=== PATIENT | female | born 1965 | race Caucasian/White ===

== ENCOUNTER → 2018-09-13 10:13 | Outpatient (CLI) | payer MEDICAID, SELFPAY ==
--- NOTE | 2018-09-13 10:15 | US_ITS ---
US extremity RT limited CLINICAL INDICATION: Right upper extremity pain with swelling at the olecranon area ITS.REASON: STRAIN OF RT BICEPS ORDERING PHYSICIAN: Meryl Bragg PATIENT AGE: 53 years Comparison: None FINDINGS: There are no previous exams available for review. Over the olecranon there is a bilobular area of increased echogenicity rounded in nature measuring 12 x 5 mm possibly related to an encapsulated lipoma. No fluid collections are evident. No other significant anomalies are apparent. IMPRESSION: Probable lipoma over the olecranon region otherwise negative.
== END ==
PROVIDERS: PCP Physician Assistant; Visit Provider Physician Assistant
DX: S46.211A Strain of muscle, fascia and tendon of other parts of biceps, right arm, initial encounter (principal)
CPT/HCPCS: 76882

== ENCOUNTER → 2018-12-01 16:15 | Outpatient (CLI) | payer MEDICAID, SELFPAY ==
--- NOTE | 2018-12-01 | XR_ITS ---
XR humerus RT CLINICAL INDICATION: Pain and tingling ORDERING PHYSICIAN: Meryl Bragg PATIENT AGE: 53 years Comparison: None FINDINGS: There is subacromial stenosis. The humerus has an unremarkable appearance. No fracture or dislocation. IMPRESSION: Negative humerus. Subacromial stenosis
--- NOTE | 2018-12-01 | XR_ITS ---
XR shoulder RT min 2V HISTORY: Right arm pain ORDERING PHYSICIAN: Meryl Bragg PATIENT AGE: 53 years Comparison: None FINDINGS: No fracture or dislocation. No lytic or blastic change. There is normal mineralization. The joint spaces are well-preserved. No significant degenerative/arthritic changes. No erosive changes evident. There is a type III acromium curved downward along its anterior margin which may result in impingement symptomatology and rotator cuff injuries and may be better evaluated with MRI if clinically desired. There is subacromial stenosis IMPRESSION: 1. Subacromial stenosis with type III acromion, 2. Otherwise negative right shoulder
--- NOTE | 2018-12-01 | XR_ITS ---
XR forearm RT 2V HISTORY: Forearm pain with tingling ORDERING PHYSICIAN: Meryl Bragg PATIENT AGE: 53 years COMPARISON: None FINDINGS: No obvious fracture, dislocation, lytic change or blastic change. Normal mineralization. Unremarkable soft tissues IMPRESSION: Negative forearm
== END ==
PROVIDERS: PCP Physician Assistant; Visit Provider Physician Assistant
DX: M79.601 Pain in right arm (principal)
CPT/HCPCS: 73030; 73060; 73090

== ENCOUNTER → 2019-01-02 12:40 | Outpatient (CLI) | payer MEDICAID, SELFPAY ==
--- NOTE | 2019-01-02 12:52 | XR_ITS ---
EXAM: XR cervical spine 2V HISTORY: ITS.REASON: neck pain ORDERING PHYSICIAN: Nona Hurtado MD PATIENT AGE: 53 years COMPARISON: None FINDINGS: There is straightening of the normal curvature which could be a normal variation or could be secondary to some degree of muscle spasm. There is prominent anterior osteophytic spurring at the C5-6 and C6-7 levels. C1-C7 appear intact with no evidence of compression fracture. The prevertebral soft tissues are normal and the odontoid is normal. IMPRESSION: Possible muscle spasm along with mild to moderate degenerative disc disease C5-6 and C6-7
== END ==
PROVIDERS: PCP Physician Assistant; Visit Provider Orthopaedic Surgery
DX: M54.2 Cervicalgia (principal)
CPT/HCPCS: 72040

== ENCOUNTER → 2020-05-24 13:37 | Outpatient (CLI) | payer MEDICAID, SELFPAY ==
[2020-05-24 14:40] LABS: Chol/HDL Ratio 4.9 (1-3.5); Cholesterol 249 mg/dl (140-200); HDL Cholesterol 51 mg/dl (40-60)
[2020-05-24 14:43] LABS: Triglycerides 424 mg/dl (30-150)
[2020-05-24 14:51] LABS: Direct LDL Cholesterol 112.38 mg/dL (100-129)
== END ==
PROVIDERS: Visit Provider Internal Medicine
DX: I10 Essential (primary) hypertension (principal); E78.5 Hyperlipidemia, unspecified
CPT/HCPCS: 36415; 80061

== ENCOUNTER 2020-05-26 17:26 | Emergency (ER) | payer MEDICAID, SELFPAY ==
[2020-05-26 17:26] VITALS: BP 148/93; PULSE 78; RESP 19; TEMP 36.7; O2SAT 98; BMI 40.4
--- NOTE | 2020-05-26 18:07 | HMH.EDUTC ---
[facility] [place] Disposition Clinical Impression: Urticaria Disposition: Home, Self-Care Condition on Discharge: Good Instructions: Hives, DI for Hives, DI for General Allergic Reactions Additional Instructions: Look around and see what you may be having a reaction too *Make sure to wash face and neck area well after coming in from the outside Return if needed Follow up with family doctor for possible referral to Asthma and Allergy for allergy testing and further treatment Straight to ER if any life threatening symptoms Prescriptions: methylPREDNISolone [Medrol 4mg tab] 4 mg PO DIRECTED #21 tab Transmission Status: Pending to [email or web address] #[id number] Referrals: Alma Rosa Baugh PA [Primary Care Provider] - As needed Time of Disposition: 18:37 Medical Decision Making - Kvng Inquiry Pt receiving controlled substance: No Kvng was queried for this patient: No Vital Signs: 05/26/20 17:26 Temperature 98.0 F Temperature Source Oral Pulse Rate [Radial] 78 Respiratory Rate 19 Blood Pressure [Right Arm] 148/93 H Blood Pressure Mean [Right Arm] 111 Blood Pressure Source [Right Arm] Automatic Cuff Blood Pressure Position [Right Arm] Sitting 02 Sat by Pulse Oximetry 98 Oxygen Delivery Method Room Air Orders (Tests/Meds): ED MEDICATIONS Discontinued Medications Generic Name Dose Route Start Last Admin Trade Name Freq PRN Reason Stop Dose Admin Methylprednisolone Sodium Succinate 125 mg 05/26/20 18:13 Solu-Medrol 125mg/2ml Vial IM 05/26/20 18:14 ONCE ONE Medical Decision Narrative: Patient reports that she has taken steroid dose pack before without complications or reactions [facility] HPI - General Stated complaint: Rash Time Seen by Provider: 05/26/20 18:07 Mode of Arrival: Ambulatory Source of Information: Patient Limitations: No Limitations Description of Symptoms (Recalled from Triage Doc. by RN): rash, swollen eyes since this morning. HEENT Symptoms (Recalled from RN notes): No Resp Symptoms (Recalled from RN notes): No Skin Symptoms (Recalled from RN notes): Yes MS Symptoms (Recalled from RN notes): No Functional Status (Recalled from RN notes): wnl - History of Present Illness Provider Complaint: Patient states that she has had a rash like this several times and gets it when she has been outside States that she is not sure what she may be having a reaction too but has rash on her face and neck redness and mild swelling States that she usually has to come in and get a shot for it - Related Data Home Medications Medication Instructions Recorded Confirmed blood sugar diagnostic See Rx Instructions .ROUTE 11/29/19 11/29/19 .MEDSUPPLY #10 each cyanocobalamin (vitamin B-12) IM 11/29/19 11/29/19 1,000 mcg/mL injection solution ergocalciferol (vitamin D2) 1,250 PO QWEEK cap 11/29/19 11/29/19 mcg (50,000 unit) capsule fenofibrate nanocrystallized 145 mg PO 11/29/19 11/29/19 mg tablet fluticasone propionate 50 INTRANASAL 11/29/19 11/29/19 mcg/actuation nasal spray,suspension lancets 33 gauge See Rx Instructions .ROUTE 11/29/19 11/29/19 .MEDSUPPLY #100 each loratadine 10 mg tablet mg PO DAILY tab 11/29/19 11/29/19 meclizine 25 mg tablet mg PO 11/29/19 11/29/19 simvastatin 40 mg tablet mg PO 11/29/19 11/29/19 Previous Rx's Medication Instructions Recorded Benzonatate [Tessalon Perle 100mg 100 mg PO TIDP PRN #30 cap 11/22/19 Cap] furosemide 20 mg tablet 20 mg PO DAILY 30 Days #30 tab 11/29/19 lisinopril 10 mg tablet 10 mg PO DAILY 30 Days #30 tab 11/29/19 metoprolol succinate 100 mg 100 mg PO DAILY 30 Days #30 tab 11/29/19 tablet,extended release 24 hr levothyroxine 125 mcg tablet 125 mcg PO DAILY #30 tab 12/04/19 triazolam 0.25 mg tablet 0.25 mg PO ONCE PRN #1 tab 12/05/19 Ondansetron [Zofran 4mg ODT] 4 mg PO Q8HP PRN #10 tab.rapdis 01/09/20 Phenazopyridine HCl [Pyridium 200 pow PO TID #6 tab 01/09/20 200mg Tablet] Sulfamethoxazole/Trim
[2020-05-26 18:43] VITALS: BP 148/93; PULSE 78; RESP 19; TEMP 36.7; O2SAT 98
== END 2020-05-26 18:45 | disposition home or self-care (01) ==
PROVIDERS: Emergency Provider Nurse Practitioner; PCP Nurse Practitioner Family
DX: L50.0 Allergic urticaria (principal); E78.5 Hyperlipidemia, unspecified; I10 Essential (primary) hypertension; I25.2 Old myocardial infarction; Z79.899 Other long term (current) drug therapy
CPT/HCPCS: 96372; 99201

== ENCOUNTER → 2020-07-12 14:41 | Outpatient (CLI) | payer MEDICAID, SELFPAY ==
--- NOTE | 2020-07-12 14:41 | MM_ITS ---
PROCEDURE: MM DIG SCREENING MAMM BI W/CAD Referring Doctor: Sumanth Sanders Patient Age:55Y CLINICAL INDICATION: screening xmg no hormones but no new complaints. Noncontributory family history. COMPARISON: MG DIG MAMMO BILAT SCREENING from 11/19/2014 MG MAMMO SCREENING DIGITAL BILAT from 02/07/2016 MG DMSB DIG MAMM-SCREEN NESTOR W/CAD from 12/11/2016 TECHNIQUE: Standard CC and MLO images were obtained. R2 CAD reviewed. Bilateral digital breast tomosynthesis included. FINDINGS: Minimal residual fibroglandular elements bilaterally with mild diffuse fatty replacement. No suspicious calcifications. Right breast. No new areas of significant concern Asymmetric area of density upper-outer quadrant right breast of has been seen on previous studies and appears overall similar to the 2016 and 2015 exam with no significant interval change. Given this stability, this area can be followed safely Left breast: No new areas of concern Similar small focal asymmetric area likely fibroglandular elements at upper-outer quadrant left breast-which appear stable since listed previous prior studies. IMPRESSION: Stable bilateral mammogram. No new areas. Stable small areas of focal density upper quadrant both breast again noted, with no significant change since prior studies. . Follow-up 1 year recommended BI-RAD Category: 2 Benign Finding(s) FOLLOW-UP: 1YR 1 Year Follow-up (A letter has been sent to the patient regarding results of the study.) Dictated by: Mata Manuel MD 07/18/2020 12:33 Mata Manuel MD in [place] 07/18/2020 12:33
== END ==
PROVIDERS: PCP Nurse Practitioner Family; Visit Provider Nurse Practitioner Obstetrics & Gynecology
DX: Z12.31 Encounter for screening mammogram for malignant neoplasm of breast (principal)
CPT/HCPCS: 77063; 77067

== ENCOUNTER → 2021-02-27 14:22 | Outpatient (CLI) | payer MEDICAID, SELFPAY ==
[2021-02-27 15:21] LABS: Basophils # 0.1 K/mm3 (0-0.2); Basophils % 0.7 % (0.1-2.0); Eosinophils # 0.3 K/mm3 (0.0-0.4); Eosinophils % 4.5 % (0.1-12.0); Hematocrit 43.6 % (37.0-47.0); Hemoglobin 14.7 g/dL (12.2-16.2); Lymphocytes # 2.3 K/mm3 (0.7-4.5); Lymphocytes % 33.9 % (10-50); Mean Corpuscular HGB Conc 33.6 g/dL (31.8-35.4); Mean Corpuscular Hemoglobin 29.3 pg (27.0-31.2); Mean Platelet Volume 7.8 fl (7.4-10.4); Monocytes # 0.4 K/mm3 (0.1-1.0); Monocytes % 5.4 % (1.7-9.3); Neutrophils # 3.7 K/mm3 (1.8-7.8); Neutrophils % 55.5 % (37.0-80.0); Platelet Count 209 K/mm3 (142-424); Red Blood Count 5.01 M/mm3 (4.20-5.40); Red Cell Distribution Width 14.9 % (11.5-17.5); White Blood Count 6.7 K/mm3 (4.8-10.8)
[2021-02-27 15:40] LABS: Hemoglobin A1C 7.9 % (4.0-6.0)
[2021-02-27 16:02] LABS: Alanine Aminotransferase 29 U/L (12-78); Albumin Level 4.5 g/dl (3.5-5.0); Albumin/Globulin Ratio 1.7 (1.1-1.8); Alkaline Phosphatase 88 U/L (38-126); Anion Gap 10.4 mEq/L (5-15); Aspartate Amino Transferase 25 U/L (14-36); Bilirubin,Total 1.6 mg/dl (0.2-1.3); Blood Urea Nitrogen 8 mg/dl (7-17); Calcium 9.8 mg/dl (8.4-10.2); Carbon Dioxide 30 mmol/L (22.0-30.0); Chloride 103 mmol/L (98-107); Chol/HDL Ratio 4.3 (1-3.5); Cholesterol 230 mg/dl (140-200); Estimated Glomerular Filt Rate 127 ml/min (>60); GFR (African American) 154 ML/MIN (>60); Globulin 2.7 g/dL (1.3-3.2); Glucose 166 mg/dl (74-100); HDL Cholesterol 53 mg/dl (40-60); Potassium 4.4 mmoL/L (3.5-5.1); Sodium 139 mmol/L (136-145); Total Protein,Serum 7.2 g/dl (6.3-8.2); Triglycerides 272 mg/dl (30-150); VLDL Cholesterol 54 mg/dL (0-40)
[2021-02-27 16:14] LABS: Direct LDL Cholesterol 120.14 mg/dL (100-129)
[2021-02-27 16:19] LABS: 25-OH Vitamin D, Total 21.1 ng/mL (30-100)
[2021-02-27 16:34] LABS: Thyroid Stimulating Hormone 1.86 uIU/mL (0.465-4.68)
[2021-02-27 16:53] LABS: Vitamin B12 190 pg/mL (239-931)
[2021-02-27 18:45] LABS: Free T4 (Free Thyroxine) 1.37 ng/dl (0.78-2.19)
== END ==
PROVIDERS: Visit Provider Physician Assistant
DX: Z00.00 Encounter for general adult medical examination without abnormal findings (principal); R53.83 Other fatigue; E78.5 Hyperlipidemia, unspecified; E03.9 Hypothyroidism, unspecified; E55.9 Vitamin D deficiency, unspecified; I10 Essential (primary) hypertension
CPT/HCPCS: 36415; 80053; 80061; 82306; 82607; 83036; 84439; 84443; 85025

== ENCOUNTER → 2021-03-20 17:22 | Outpatient (CLI) | payer MEDICAID, SELFPAY ==
--- NOTE | 2021-03-21 13:01 | PC.NURSE ---
[facility] RECEIVED HOME SLEEP DEVICE - RETURNED AND NOT ENOUGH DATA TO UPLOAD - NO CHARGE TO PATIENT.... PATIENT NOTIFIED
== END ==
PROVIDERS: PCP Physician Assistant; Visit Provider Physician Assistant
DX: G47.33 Obstructive sleep apnea (adult) (pediatric) (principal); R53.83 Other fatigue; E11.9 Type 2 diabetes mellitus without complications

== ENCOUNTER 2021-06-24 15:21 | Emergency (ER) | payer MEDICAID, SELFPAY ==
[2021-06-24 15:40] VITALS: BP 143/84; PULSE 84; RESP 20; TEMP 36.7; O2SAT 97; BMI 40.0
--- NOTE | 2021-06-24 16:14 | HMH.EDUTC ---
[facility] [place] Clinical Impression: Sinusitis Qualifiers: Sinusitis location: unspecified location Chronicity: acute Recurrence: non-recurrent Qualified Code(s): J01.90 - Acute sinusitis, unspecified Disposition: Home, Self-Care Condition on Discharge: Good Instructions: Sinusitis, DI for Sinusitis Additional Instructions: Drink plenty of fluids. Take tylenol or ibuprofen for pain or fever. Take the medications as directed. Follow up with your regular doctor. GO TO THE ER FOR ANY WORSENING SYMPTOMS Prescriptions: Ondansetron [Zofran 4mg ODT] 4 mg PO Q8HP PRN #20 tab.rapdis PRN Reason: Nausea Transmission Status: Received by [facility] Amoxicillin/Potassium Clav [Augmentin 875-125 Tablet] 1 tab PO Q12H 10 Days #20 tab Transmission Status: Received by [facility] Fluticasone Propionate 1 spray NS BID 30 Days #1 bottle Transmission Status: Received by [facility] methylPREDNISolone [Medrol] 4 mg PO DIRECTED 6 Days #21 tab.ds.pk Transmission Status: Received by [facility] Referrals: Dora Moran PA [Primary Care Provider] - Time of Disposition: 16:30 Medical Decision Making - Medical Records Medical records reviewed: No: I reviewed the patient's medical records. - Kvng Inquiry Pt receiving controlled substance: No Vital Signs: 06/24/21 15:40 06/24/21 16:33 Temperature 98.1 F 98.1 F Temperature Source Oral Pulse Rate 84 Pulse Rate [Left Brachial] 84 Respiratory Rate 20 20 Blood Pressure 143/84 H Blood Pressure [Left Arm] 143/84 H Blood Pressure Mean [Left Arm] 103 Blood Pressure Source [Left Arm] Automatic Cuff Blood Pressure Position [Left Arm] Sitting 02 Sat by Pulse Oximetry 97 Oxygen Delivery Method Room Air - Lab Data Lab results reviewed: Yes: I reviewed the patient's lab results. [facility] [place] HPI - General Stated complaint: sinus pain Time Seen by Provider: 06/24/21 16:14 Mode of Arrival: Ambulatory Source of Information: Patient Limitations: No Limitations Description of Symptoms (Recalled from Triage Doc. by RN): PATIENT C/O SINUS PRESSURE. STATES SHE USUALLY GETS A SINUS INFECTION ONCE A YEAR AND FEELS LIKE SHE HAS ONE HEENT Symptoms (Recalled from RN notes): Yes Resp Symptoms (Recalled from RN notes): No Skin Symptoms (Recalled from RN notes): No MS Symptoms (Recalled from RN notes): No Functional Status (Recalled from RN notes): WNL - History of Present Illness Provider Complaint: She c/o sinus congestion and sinus pressure for the past 2 days. She usually gets a bad sinus infection ever late summer as the weather changes. She denies any fever/chills, chest congestion. - Related Data Home Medications Medication Instructions Recorded Confirmed loratadine 10 mg tablet mg PO DAILY tab 11/29/19 04/28/21 Previous Rx's Medication Instructions Recorded metoprolol succinate 100 mg See Rx Instructions .ROUTE 02/27/21 tablet,extended release 24 hr .COMPLEX #90 tab aspirin 81 mg tablet,delayed 81 mg PO DAILY #30 tab 03/06/21 release blood sugar diagnostic See Rx Instructions .ROUTE 03/06/21 .MEDSUPPLY #100 each blood-glucose meter See Rx Instructions .ROUTE 03/06/21 .MEDSUPPLY #1 each cholecalciferol (vitamin D3) 25 25 mcg PO DAILY #30 cap 03/06/21 mcg (1,000 unit) capsule ergocalciferol (vitamin D2) 1,250 1,250 mcg PO WEEKLY #5 cap 03/06/21 mcg (50,000 unit) capsule lancets 23 gauge See Rx Instructions .ROUTE 03/06/21 .MEDSUPPLY #100 each lisinopril 5 mg tablet 5 mg PO DAILY #30 tab 03/06/21 metformin 500 mg tablet,extended 500 mg PO BID #60 tab 03/06/21 release 24 hr atorvastatin 20 mg tablet 20 mg PO DAILY #30 tab 03/10/21 meclizine 25 mg tablet 25 mg PO DAILY PRN #30 tab 03/10/21 levothyroxine 125 mcg tablet See Rx Instructions .ROUTE 04/10/21 .COMPLEX #30 tab bupropion HCl 150 mg tablet,12 hr 150 mg PO BID #60 each 04/28/21 sustained-release
[2021-06-24 16:33] VITALS: BP 143/84; PULSE 84; RESP 20; TEMP 36.7; O2SAT 97
== END 2021-06-24 16:36 | disposition home or self-care (01) ==
PROVIDERS: Emergency Provider Nurse Practitioner Family; PCP Physician Assistant
DX: J01.90 Acute sinusitis, unspecified (principal); E11.9 Type 2 diabetes mellitus without complications; I10 Essential (primary) hypertension; E03.9 Hypothyroidism, unspecified; E78.5 Hyperlipidemia, unspecified; Z79.899 Other long term (current) drug therapy
CPT/HCPCS: 99202; G0463

== ENCOUNTER → 2022-04-07 15:40 | Outpatient (CLI) | payer MEDICAID, SELFPAY ==
[2022-04-07 18:47] LABS: Basophils # 0.1 K/mm3 (0-0.2); Eosinophils # 0.4 K/mm3 (0.0-0.4); Eosinophils % 5.4 % (0.1-12.0); Hematocrit 45.1 % (37.0-47.0); Hemoglobin 14.8 g/dL (12.2-16.2); Lymphocytes % 30.2 % (10-50); Mean Corpuscular HGB Conc 32.7 g/dL (31.8-35.4); Mean Corpuscular Hemoglobin 29.6 pg (27.0-31.2); Mean Corpuscular Volume 90.5 fl (81-99); Mean Platelet Volume 9.7 fl (7.4-10.4); Monocytes # 0.3 K/mm3 (0.1-1.0); Monocytes % 5.1 % (1.7-9.3); Neutrophils # 3.8 K/mm3 (1.8-7.8); Neutrophils % 57.3 % (37.0-80.0); Platelet Count 221 K/mm3 (142-424); Red Blood Count 4.98 M/mm3 (4.20-5.40); Red Cell Distribution Width 14.7 % (11.5-17.5); White Blood Count 6.6 K/mm3 (4.8-10.8)
[2022-04-07 18:53] LABS: Alanine Aminotransferase 31 U/L (12-78); Albumin Level 3.9 g/dl (3.5-5.0); Albumin/Globulin Ratio 1.4 (1.1-1.8); Alkaline Phosphatase 106 U/L (38-126); Anion Gap 13.1 mEq/L (5-15); Aspartate Amino Transferase 29 U/L (14-36); Bilirubin,Total 2.2 mg/dl (0.2-1.3); Blood Urea Nitrogen 9 mg/dl (7-17); Calcium 9.4 mg/dl (8.4-10.2); Carbon Dioxide 29 mmol/L (22.0-30.0); Chloride 96 mmol/L (98-107); Chol/HDL Ratio 4.8 (1-3.5); Cholesterol 251 mg/dl (140-200); Estimated Glomerular Filt Rate 103 ml/min (>60); GFR (African American) 124 ML/MIN (>60); Globulin 2.8 g/dL (1.3-3.2); Glucose 374 mg/dl (74-100); HDL Cholesterol 52 mg/dl (40-60); Potassium 4.1 mmoL/L (3.5-5.1); Sodium 134 mmol/L (136-145); Total Protein,Serum 6.7 g/dl (6.3-8.2); Triglycerides 346 mg/dl (30-150); VLDL Cholesterol 69 mg/dL (0-40)
[2022-04-07 19:04] LABS: Direct LDL Cholesterol 137.08 mg/dL (100-129); Hemoglobin A1C 10.4 % (4.0-6.0)
[2022-04-07 19:10] LABS: 25-OH Vitamin D, Total 16.2 ng/mL (30-100)
[2022-04-07 19:24] LABS: Thyroid Stimulating Hormone 1.87 uIU/mL (0.465-4.68)
== END ==
PROVIDERS: PCP Physician Assistant; Visit Provider Physician Assistant
DX: E11.9 Type 2 diabetes mellitus without complications (principal); E03.9 Hypothyroidism, unspecified; Z79.84 Long term (current) use of oral hypoglycemic drugs
CPT/HCPCS: 80053; 80061; 82306; 83036; 84443; 85025

== ENCOUNTER → 2022-06-05 16:11 | Outpatient (CLI) | payer MEDICAID, SELFPAY ==
[2022-06-05 17:10] LABS: Basophils % 0.6 % (0.1-2.0); Eosinophils # 0.2 K/mm3 (0.0-0.4); Eosinophils % 3.4 % (0.1-12.0); Hematocrit 41.9 % (37.0-47.0); Hemoglobin 13.6 g/dL (12.2-16.2); Lymphocytes % 34.8 % (10-50); Mean Corpuscular HGB Conc 32.4 g/dL (31.8-35.4); Mean Corpuscular Hemoglobin 28.7 pg (27.0-31.2); Mean Corpuscular Volume 88.4 fl (81-99); Monocytes # 0.4 K/mm3 (0.1-1.0); Monocytes % 6.4 % (1.7-9.3); Neutrophils # 3.2 K/mm3 (1.8-7.8); Neutrophils % 54.8 % (37.0-80.0); Platelet Count 211 K/mm3 (142-424); Red Blood Count 4.74 M/mm3 (4.20-5.40); Red Cell Distribution Width 14.2 % (11.5-17.5); White Blood Count 5.8 K/mm3 (4.8-10.8)
[2022-06-05 17:22] LABS: Alanine Aminotransferase 22 U/L (12-78); Albumin Level 3.8 g/dl (3.5-5.0); Albumin/Globulin Ratio 1.5 (1.1-1.8); Alkaline Phosphatase 79 U/L (38-126); Amylase 40 U/L (30-110); Anion Gap 8.4 mEq/L (5-15); Aspartate Amino Transferase 19 U/L (14-36); Bilirubin,Total 1.7 mg/dl (0.2-1.3); Blood Urea Nitrogen 11 mg/dl (7-17); Calcium 9.2 mg/dl (8.4-10.2); Carbon Dioxide 32 mmol/L (22.0-30.0); Chloride 101 mmol/L (98-107); Estimated Glomerular Filt Rate 86 ml/min (>60); GFR (African American) 104 ML/MIN (>60); Globulin 2.5 g/dL (1.3-3.2); Glucose 172 mg/dl (74-100); Lipase 44 U/L (23-300); Potassium 4.4 mmoL/L (3.5-5.1); Sodium 137 mmol/L (136-145); Total Protein,Serum 6.3 g/dl (6.3-8.2)
== END ==
PROVIDERS: PCP Physician Assistant; Visit Provider Physician Assistant
DX: R10.9 Unspecified abdominal pain (principal)
CPT/HCPCS: 36415; 80053; 82150; 83690; 85025; 86677

== ENCOUNTER 2022-07-18 16:52 | Emergency (ER) | payer MEDICAID, SELFPAY ==
[2022-07-18 17:35] VITALS: BP 137/81; PULSE 64; RESP 19; TEMP 36.8; O2SAT 98; BMI 34.0
--- NOTE | 2022-07-18 17:55 | EXP.UTC ---
Discharge Plan Disposition Patient Disposition: Home, Self-Care Condition: Good Prescriptions Prescriptions: New amoxicillin 875 mg tablet 875 mg PO BID 10 Days Qty: 20 0RF No Action loratadine 10 mg tablet PO DAILY furosemide 20 mg tablet 20 mg PO DAILY 30 Days Qty: 30 2RF meclizine 25 mg tablet 25 mg PO DAILY PRN (Reason: dizziness) Qty: 30 0RF fluticasone propionate 50 mcg/actuation spray,suspension 1 spray NS BID 30 Days Qty: 1 0RF lisinopril 5 mg tablet 5 mg PO DAILY Qty: 90 3RF ketoconazole 2 % foam 1 applic TP BID PRN (Reason: Skin issue ) Qty: 50 1RF buspirone 5 mg tablet 5 mg PO BID Qty: 60 2RF sertraline [Zoloft] 50 mg tablet 50 mg PO DAILY Qty: 30 2RF omeprazole 40 mg capsule,delayed release(DR/EC) 40 mg PO BID Qty: 60 1RF Rx Instructions: swallow whole; do not crush, chew, dissolve, cut, break aspirin 81 mg tablet,delayed release (DR/EC) 81 mg PO DAILY Qty: 30 3RF (DME) blood-glucose meter Misc See Rx Instructions .ROUTE .MEDSUPPLY Qty: 1 0RF Rx Instructions: As directed (DME) lancets 23 gauge misc See Rx Instructions .ROUTE .MEDSUPPLY Qty: 100 3RF Rx Instructions: TID (DME) Blood Glucose Test Strip See Rx Instructions .ROUTE .MEDSUPPLY Qty: 100 3RF Rx Instructions: As directed acyclovir 5 % ointment 1 applic TOPICAL 5XD 7 Days Qty: 5 0RF metformin 500 mg tablet extended release 24 hr See Rx Instructions .ROUTE .COMPLEX Qty: 60 0RF Dose Instruction: TAKE ONE TABLET BY MOUTH ONCE A DAY FOR 7 DAYS, THEN INCREASE TO 1 TABLET 2 TIMES A DAY Rx Instructions: TAKE ONE TABLET BY MOUTH ONCE A DAY FOR 7 DAYS, THEN INCREASE TO 1 TABLET 2 TIMES A DAY patient needs appt before anymore refills valacyclovir [Valtrex] 1 gram tablet 1,000 mg PO BID Qty: 30 0RF levothyroxine 125 mcg tablet See Rx Instructions .ROUTE .COMPLEX Qty: 30 2RF Dose Instruction: TAKE ONE TABLET BY MOUTH ONCE A DAY FOR THYROID Rx Instructions: TAKE ONE TABLET BY MOUTH ONCE A DAY FOR THYROID atorvastatin 40 mg tablet 40 mg PO DAILY Qty: 90 3RF cholecalciferol (vitamin D3) 25 mcg (1,000 unit) tablet 25 mcg PO DAILY Qty: 90 3RF ergocalciferol (vitamin D2) 1,250 mcg (50,000 unit) capsule 50,000 unit PO WEEKLY Qty: 14 0RF glipizide 10 mg tablet extended release 24hr 10 mg PO DAILY Qty: 90 3RF Januvia 100 mg tablet 100 mg PO DAILY Qty: 90 3RF terconazole 0.8 % cream 1 appful VAGINAL HS 3 Days Qty: 20 6RF metoprolol succinate 100 mg tablet extended release 24 hr See Rx Instructions .ROUTE .COMPLEX Qty: 30 2RF Dose Instruction: TAKE ONE TABLET BY MOUTH ONCE A DAY Rx Instructions: TAKE ONE TABLET BY MOUTH ONCE A DAY ondansetron 4 MG tablet,disintegrating 4 mg PO Q8HP PRN (Reason: Nausea) Qty: 20 0RF Referrals Follow up/Referrals: Dora Moran PA [Primary Care Provider] - See instructions Activity Restrictions/Add. Instructions Additional Instructions/Restrictions: Take medication as prescribed. Increase fluids and rest. Follow up with PCP if symptoms persist or worsen. Clinical Impressions Clinical Impression: Acute upper respiratory infection Discharge ED Provider: Haylee Garcia [facility] General Stated complaint: poss sinus inf Time Seen by Provider: 07/18/22 17:30 Description of Symptoms (Recalled from Triage Doc. by RN): PT C/O SINUS PRESSURE, PRODUCTIVE COUGH, CHEST CONGESTION, AND HEADACHE THAT STARTED 3 DAYS AGO. HEENT Symptoms (Recalled from RN notes): No Resp Symptoms (Recalled from RN notes): Yes Skin Symptoms (Recalled from RN notes): No MS Symptoms (Recalled from RN notes): No Functional Status (Recalled from RN notes): WNL History of Present Illness Provider Complaint: Pt relates for the last 3 days she has had a productive cough, sinus pressure and pain, yellow sinus drainage, and heada
[2022-07-18 18:05] VITALS: BP 137/81; PULSE 64; RESP 19; TEMP 36.8; O2SAT 98
== END 2022-07-18 18:10 | disposition home or self-care (01) ==
PROVIDERS: Emergency Provider Nurse Practitioner Family; PCP Physician Assistant
DX: J06.9 Acute upper respiratory infection, unspecified (principal)
CPT/HCPCS: 99212; G0463

== ENCOUNTER → 2023-03-09 14:02 | Outpatient (CLI) | payer MEDICAID, SELFPAY ==
--- NOTE | 2023-03-09 14:10 | XR_ITS ---
FINAL REPORT CLINICAL HISTORY: LT KNEE PAIN FINDINGS: 3 views of the left knee were obtained. There is no acute fracture or dislocation. There are moderate degenerative changes. There is medial joint space narrowing. There are multiple presumed venous varicosities. IMPRESSION: Moderate degenerative change. Reviewed, Interpreted and Dictated by Yonathan Jurado III, MD Transcribed by Je Holt Authenticated and [facility]
== END ==
PROVIDERS: PCP Nurse Practitioner Family; Visit Provider Nurse Practitioner Family
DX: M25.562 Pain in left knee (principal)
CPT/HCPCS: 73562

== ENCOUNTER → 2023-04-01 23:17 | Outpatient (CLI) | payer MEDICAID, SELFPAY ==
[2023-04-01 18:23] LABS: Basophils % 0.4 % (0.1-2.0); Eosinophils # 0.2 K/mm3 (0.0-0.4); Eosinophils % 2.4 % (0.1-12.0); Hematocrit 46.6 % (37.0-47.0); Hemoglobin 15.1 g/dL (12.2-16.2); Lymphocytes # 1.9 K/mm3 (0.7-4.5); Lymphocytes % 28.4 % (10-50); Mean Corpuscular HGB Conc 32.4 g/dL (31.8-35.4); Mean Corpuscular Hemoglobin 29.4 pg (27.0-31.2); Mean Corpuscular Volume 90.8 fl (81-99); Monocytes # 0.4 K/mm3 (0.1-1.0); Neutrophils # 4.3 K/mm3 (1.8-7.8); Neutrophils % 62.8 % (37.0-80.0); Platelet Count 219 K/mm3 (142-424); Red Blood Count 5.13 M/mm3 (4.20-5.40); Red Cell Distribution Width 15.1 % (11.5-17.5); White Blood Count 6.9 K/mm3 (4.8-10.8)
[2023-04-01 18:50] LABS: Alanine Aminotransferase 34 U/L (12-78); Albumin Level 3.9 g/dl (3.5-5.0); Albumin/Globulin Ratio 1.4 (1.1-1.8); Alkaline Phosphatase 100 U/L (38-126); Anion Gap 17.2 mEq/L (5-15); Aspartate Amino Transferase 27 U/L (14-36); Blood Urea Nitrogen 11 mg/dl (7-17); Calcium 9.1 mg/dl (8.4-10.2); Carbon Dioxide 27 mmol/L (22.0-30.0); Chloride 97 mmol/L (98-107); Estimated Glomerular Filt Rate 126 ml/min (>60); GFR (African American) 153 ML/MIN (>60); Globulin 2.8 g/dL (1.3-3.2); Glucose 146 mg/dl (74-100); Potassium 4.2 mmoL/L (3.5-5.1); Sodium 137 mmol/L (136-145); Total Protein,Serum 6.7 g/dl (6.3-8.2)
[2023-04-01 19:22] LABS: Thyroid Stimulating Hormone 0.75 uIU/mL (0.465-4.68)
[2023-04-02 12:23] LABS: Hemoglobin A1C 7.8 % (4.0-6.0)
[2023-04-03 12:10] LABS: Cancer Antigen (CA) 125 25.8 U/mL (0.0-38.1)
== END ==
PROVIDERS: PCP Physician Assistant; Visit Provider Physician Assistant
DX: N95.0 Postmenopausal bleeding (principal); E11.9 Type 2 diabetes mellitus without complications; Z79.84 Long term (current) use of oral hypoglycemic drugs
CPT/HCPCS: 80053; 83036; 84443; 85025; 86316

== ENCOUNTER → 2023-04-07 14:49 | Outpatient (CLI) | payer MEDICAID, SELFPAY ==
--- NOTE | 2023-04-07 14:53 | US_ITS ---
FINAL REPORT CLINICAL HISTORY: postmenopausal bleeding COMPARISON: None FINDINGS: Transvaginal sonographic images of the pelvis were obtained. The uterus measures 8.4 x 4.4 x 4.1 cm. The endometrium is mildly thickened at 10 mm as an abnormal but nonspecific finding. No uterine mass is identified. There is no visualization of the bilateral ovaries. No adnexal mass or abnormal fluid collection identified. IMPRESSION: Nonspecific endometrial thickening. No adnexal mass or abnormal fluid collection identified. Reviewed, Interpreted and Dictated by Yonathan Jurado III, MD Transcribed by Winter Fuller Authenticated and . [facility]
== END ==
PROVIDERS: PCP Physician Assistant; Visit Provider Physician Assistant
DX: N95.0 Postmenopausal bleeding (principal)
CPT/HCPCS: 76830

== ENCOUNTER → 2023-04-08 19:27 | Outpatient (CLI) | payer MEDICAID, SELFPAY ==
[2023-04-08 19:51] LABS: Chloride 97 mmol/L (98-107); Potassium 4.3 mmoL/L (3.5-5.1); Sodium 138 mmol/L (136-145)
[2023-04-08 19:54] LABS: Alanine Aminotransferase 31 U/L (12-78); Albumin Level 3.9 g/dl (3.5-5.0); Albumin/Globulin Ratio 1.4 (1.1-1.8); Alkaline Phosphatase 93 U/L (38-126); Anion Gap 14.3 mEq/L (5-15); Aspartate Amino Transferase 25 U/L (14-36); Bilirubin,Indirect 1.7 mg/dL (0.0-0.9); Bilirubin,Total 1.7 mg/dl (0.2-1.3); Bilirubin,Unconjugated 1.7 mg/dL (0.0-1.1); Blood Urea Nitrogen 13 mg/dl (7-17); Calcium 9.4 mg/dl (8.4-10.2); Carbon Dioxide 31 mmol/L (22.0-30.0); Estimated Glomerular Filt Rate 102 ml/min (>60); GFR (African American) 124 ML/MIN (>60); Globulin 2.8 g/dL (1.3-3.2); Glucose 103 mg/dl (74-100); Total Protein,Serum 6.7 g/dl (6.3-8.2)
[2023-05-20 08:07] LABS: Lactate Dehydrogenase 195 U/L (313-618)
[2023-05-20 08:08] LABS: Haptoglobin 113
[2023-05-20 08:09] LABS: Peripheral Smear Review Scanned Results
== END ==
LOC: LAB.DROPOF 19:29
PROVIDERS: PCP Physician Assistant; Visit Provider Physician Assistant
DX: R17 Unspecified jaundice (principal)
CPT/HCPCS: 80053; 82247; 82248; 83010; 83615; 85060

== ENCOUNTER → 2023-04-09 14:29 | Outpatient (CLI) | payer MEDICAID, SELFPAY ==
[2023-04-09 14:17] LABS: Lactate Dehydrogenase 195 U/L (313-618)
[2023-04-11 08:11] LABS: Haptoglobin 113 mg/dL (33-346)
[2023-04-11 13:56] LABS: Peripheral Smear Review Scanned Result
== END ==
PROVIDERS: PCP Physician Assistant; Visit Provider Physician Assistant
DX: N95.0 Postmenopausal bleeding (principal)
CPT/HCPCS: 83010; 83615

== ENCOUNTER 2023-05-24 17:14 | Emergency (ER) | payer MEDICAID, SELFPAY ==
[2023-05-24 17:15] VITALS: BP 157/91; PULSE 66; RESP 18; TEMP 36.8; O2SAT 97; BMI 39.2
--- NOTE | 2023-05-24 17:22 | EXP.UTC ---
Discharge Plan Disposition Patient Disposition: Home, Self-Care Condition: Good Prescriptions Prescriptions: New methylprednisolone 4 mg Tablets,Dose Pack 4 mg PO DIRECTED Qty: 21 0RF No Action loratadine 10 mg tablet PO DAILY meclizine 25 mg tablet 25 mg PO DAILY PRN (Reason: dizziness) Qty: 30 0RF fluticasone propionate 50 mcg/actuation spray,suspension 1 spray NS BID 30 Days Qty: 1 0RF triamcinolone acetonide 0.1 % ointment 1 applic topical BID Qty: 80 2RF esomeprazole magnesium 40 mg capsule,delayed release(DR/EC) 40 mg PO aspirin 81 mg tablet,delayed release (DR/EC) 81 mg PO DAILY Qty: 30 3RF cholecalciferol (vitamin D3) 25 mcg (1,000 unit) tablet 25 mcg PO DAILY Qty: 90 3RF ergocalciferol (vitamin D2) 1,250 mcg (50,000 unit) capsule See Rx Instructions .ROUTE .COMPLEX Qty: 4 0RF Dose Instruction: TAKE ONE CAPSULE BY MOUTH EVERY WEEK Rx Instructions: TAKE ONE CAPSULE BY MOUTH EVERY WEEK metoprolol succinate 100 mg tablet extended release 24 hr See Rx Instructions .ROUTE .COMPLEX Qty: 30 2RF Dose Instruction: TAKE ONE TABLET BY MOUTH ONCE A DAY Rx Instructions: TAKE ONE TABLET BY MOUTH ONCE A DAY glipizide 10 mg tablet extended release 24hr See Rx Instructions .ROUTE .COMPLEX Qty: 30 2RF Dose Instruction: TAKE ONE TABLET BY MOUTH ONCE A DAY Rx Instructions: TAKE ONE TABLET BY MOUTH ONCE A DAY atorvastatin 40 mg tablet See Rx Instructions .ROUTE .COMPLEX Qty: 30 2RF Dose Instruction: TAKE ONE TABLET BY MOUTH ONCE A DAY Rx Instructions: TAKE ONE TABLET BY MOUTH ONCE A DAY lisinopril 5 mg tablet See Rx Instructions .ROUTE .COMPLEX Qty: 30 2RF Dose Instruction: TAKE ONE TABLET BY MOUTH ONCE A DAY Rx Instructions: TAKE ONE TABLET BY MOUTH ONCE A DAY levothyroxine 125 mcg tablet See Rx Instructions .ROUTE .COMPLEX Qty: 30 2RF Dose Instruction: TAKE ONE TABLET BY MOUTH ONCE A DAY FOR THYROID Rx Instructions: TAKE ONE TABLET BY MOUTH ONCE A DAY FOR THYROID furosemide 20 mg tablet See Rx Instructions .ROUTE .COMPLEX Qty: 30 2RF Dose Instruction: TAKE ONE TABLET BY MOUTH ONCE A DAY Rx Instructions: TAKE ONE TABLET BY MOUTH ONCE A DAY Ozempic 0.25 mg or 0.5 mg (2 mg/3 mL) pen injector 0.25 mg SQ WEEKLY Qty: 3 2RF Rx Instructions: for 4 weeks Referrals Follow up/Referrals: Dora Moran PA [Primary Care Provider] - See instructions Activity Restrictions/Add. Instructions Additional Instructions/Restrictions: Try to identify and avoid contact with the offending substance. Don't start the oral steroids until tomorrow. The diphenhydramine (benedryl) will make you drowsy, so don't drive or operate heavy machinery after taking it. Follow up with your regular doctor. GO TO THE ER FOR ANY WORSENING SYMPTOMS OR CONCERNS Clinical Impressions Clinical Impression: Allergic reaction Instructions Patient Instructions: DI for General Allergic Reactions, Methylprednisolone Injection Discharge ED Provider: Ganga Murillo [facility] General Stated complaint: rash Time Seen by Provider: 05/24/23 17:22 History of Present Illness Provider Complaint: She states that for the past 1 days she has had generalized itching and a rash. She denies any exposure to any known allergens. Related Data Home Medications Medication Instructions Recorded Confirmed loratadine 10 mg tablet mg PO DAILY 11/29/19 05/25/23 esomeprazole magnesium 40 mg 40 mg PO 04/01/23 05/25/23 capsule,delayed release Previous Rx's Medication Instructions Recorded aspirin 81 mg tablet,delayed 81 mg PO DAILY #30 tabs 03/06/21 release meclizine 25 mg tablet 25 mg PO DAILY PRN dizziness #30 03/10/21 tabs fluticasone propionate 50 1 spray intranasal BID 30 days ##1 04/07/22 mcg/actuation nasal spray,suspension cholecalciferol
[2023-05-24 18:28] VITALS: BP 157/91; PULSE 66; RESP 18; TEMP 36.8; O2SAT 97
== END 2023-05-24 18:28 | disposition home or self-care (01) ==
PROVIDERS: Emergency Provider Nurse Practitioner Family; PCP Physician Assistant
DX: T78.40XA Allergy, unspecified, initial encounter; I10 Essential (primary) hypertension; E78.5 Hyperlipidemia, unspecified; E03.9 Hypothyroidism, unspecified; E11.9 Type 2 diabetes mellitus without complications; E53.8 Deficiency of other specified B group vitamins; J30.9 Allergic rhinitis, unspecified; F32.A Depression, unspecified; Z68.41 Body mass index [BMI] 40.0-44.9, adult; Z79.84 Long term (current) use of oral hypoglycemic drugs
CPT/HCPCS: 96372; 99212; 99214; G0463

== ENCOUNTER → 2023-05-25 10:11 | Outpatient (CLI) | payer MEDICAID, SELFPAY ==
--- NOTE | 2023-05-25 10:32 | ECG_ITS ---
APPROVED REPORT Exam: Resting ECG HR:75 bpm ECG Measurements Heart Rate 75 AXES [place] 148 P 33 QRSd 101 QRS 52 QT 388 T 64 QTc 417 Conclusion SINUS RHYTHM Isolated Q in III - noted in 2016 Normal ECG UNCONFIRMED REPORT Electronically signed by : Salazar Robert MD 05/27/2023 21:41:47
[2023-05-25 10:49] LABS: Basophils % 0.2 % (0.1-2.0); Eosinophils % 0.4 % (0.1-12.0); Hematocrit 43.8 % (37.0-47.0); Hemoglobin 14.2 g/dL (12.2-16.2); Lymphocytes # 0.9 K/mm3 (0.7-4.5); Lymphocytes % 11.5 % (10-50); Mean Corpuscular HGB Conc 32.3 g/dL (31.8-35.4); Mean Corpuscular Hemoglobin 29.1 pg (27.0-31.2); Mean Corpuscular Volume 90.1 fl (81-99); Mean Platelet Volume 8.7 fl (7.4-10.4); Monocytes # 0.3 K/mm3 (0.1-1.0); Monocytes % 3.9 % (1.7-9.3); Neutrophils # 6.6 K/mm3 (1.8-7.8); Platelet Count 220 K/mm3 (142-424); Red Blood Count 4.86 M/mm3 (4.20-5.40); Red Cell Distribution Width 15.3 % (11.5-17.5); White Blood Count 7.9 K/mm3 (4.8-10.8)
[2023-05-25 11:30] LABS: Alanine Aminotransferase 41 U/L (12-78); Albumin/Globulin Ratio 1.4 (1.1-1.8); Alkaline Phosphatase 104 U/L (38-126); Anion Gap 13.2 mEq/L (5-15); Aspartate Amino Transferase 30 U/L (14-36); Bilirubin,Total 1.8 mg/dl (0.2-1.3); Blood Urea Nitrogen 11 mg/dl (7-17); Calcium 9.5 mg/dl (8.4-10.2); Carbon Dioxide 26 mmol/L (22.0-30.0); Chloride 104 mmol/L (98-107); Estimated Glomerular Filt Rate 102 ml/min (>60); GFR (African American) 124 ML/MIN (>60); Globulin 2.8 g/dL (1.3-3.2); Glucose 298 mg/dl (74-100); Potassium 4.2 mmoL/L (3.5-5.1); Sodium 139 mmol/L (136-145); Total Protein,Serum 6.8 g/dl (6.3-8.2)
[2023-05-25 11:48] LABS: HCG,Quantitative 6 mIU/ml (0-5.42)
== END ==
PROVIDERS: PCP Physician Assistant; Visit Provider Nurse Practitioner Obstetrics & Gynecology
DX: Z01.818 Encounter for other preprocedural examination (principal); N95.0 Postmenopausal bleeding
CPT/HCPCS: 36415; 80053; 84702; 85025; 93005

== ENCOUNTER 2023-06-01 07:38 | Day surgery (SDC) | payer MEDICAID, SELFPAY ==
[2023-05-28 12:36] VITALS: BMI 39.6
[2023-06-01] VITALS (9 sets, daily range): BP systolic 121–136; BP diastolic 70–86; PULSE 80–89; RESP 12–18; TEMP 36.2–36.4; O2SAT 94–99
[2023-06-01 08:06] LABS: POC Glucose,Bedside 95 (70-110)
--- NOTE | 2023-06-01 08:21 | P.PNANES_ITS ---
[facility] Disclaimer: The information contained in this section may have been updated after the patient was seen, as this information can be updated by other users. Medical History Allergic rhinitis Asthma B12 deficiency BMI 40.0-44.9, adult Depression HTN (hypertension) Hyperlipidemia Hypothyroidism Surgical History H/O hernia repair History of delivery History of cholecystectomy S/P cholecystectomy Family History Other Asthma Diabetes Heart attack Hyperlipidemia Hypertension Thyroid disorder Social History Smoking Status: Never smoker second hand exposure: No alcohol intake: never substance use type: denies use current occupational status: other Travel in the last 8 weeks: None household members: spouse and children housing: house [facility] Anesthesia Checklist Patient Identification Patient Identification: Arm Band and Verbal (Name & ) Structural Data Admitted From: Home Planned Operative Procedure/s: Hyst/D & C/Polypectomy Consent for Planned Operative Procedure(s) Verified: Yes NPO Status Verified Time NPO: 00:00 Additional verifications Anesthesia Reactions: No Hx Blood Transfusions: No Blood Transfusion Reaction: No Airway Assessment C-Spine Mobility Assessed: Yes TMJ Mobility Assessed: Yes Dentition: Edentulous Neurological Assessment Level of Consciousness: Awake Hx Seizures: No Numbness or tingling in extremities: No Anesthesia Plan Anesthesia Risk discussed: Yes Anesthesia Plan: Verified ASA Class: III Anesthesia Type: General
[2023-06-01 08:25] LABS: Urine Pregnancy, HCG Qual. Negative (Negative)
--- NOTE | 2023-06-01 09:58 | P.PNANES_ITS ---
[facility] Anesthesia Record Part I Anesthesia Record I Intake, IV Amount: 800 Estimated blood loss (mL): 25 Urine output (mL): 0 Blood Pressure: 129/83 SaO2: 94 Pulse Rate: 89 Respiratory Rate: 12 Temperature: 97.5 F Patient is:: Awake and Stable Stable to PACU at:: 10:00
[2023-06-01 10:06] LABS: POC Glucose,Bedside 105 (70-110)
--- NOTE | 2023-06-01 10:55 | EXP.OP.NOTE ---
Date of procedure: 06/01/23 Pre-op Diagnosis:: Postmenopausal bleeding, polyp Post-op Diagnosis:: Postmenopausal bleeding, polyp Procedure performed:: Hysteroscopy, dilation and curettage, MyoSure curettage. Surgeon:: Sumanth Sanders MD WATER METER INSTALLER:: Makr Naranjo Anesthesia: LMA Estimated blood loss (mL): 25 Clinical Note:: She is a 58-year-old lady who had some postmenopausal bleeding. An ultrasound showed that her endometrium was slightly thickened. Endometrial biopsy the showed a polyp. Operative findings:: She had an anteverted uterus. There were a couple small polyps in the left cornua of the uterus. There were multiple polyps within the cervical canal. The endometrium appeared thin. Operative note:: She was taken the operating room where LMA anesthesia was found be adequate. She was prepped draped normal sterile fashion lithotomy position. The weighted speculum was placed in vagina and the anterior lip of the cervix was grasped with a tenaculum. Clinton dilators were used to dilate the cervix to approximately 5 mm. A MyoSure scope was then placed within the uterine cavity. The findings were as previously dictated. Using the MyoSure device I shaved off the polyps within the endometrial cavity as well as the polyps in the endocervical canal. I then injected 10 cc of 0.25% ropivacaine at the 5:00 and 7:00 positions of the cervix. She tolerated procedure well and was taken to recovery next condition. All sponge, instrument counts were correct. The estimated blood loss was less than 25 cc. The fluid deficit was 490 cc. Condition: stable Disposition: PACU Specimens:: Curettings Complications:: None
--- NOTE | 2023-06-07 07:51 | EXP.ANES.II ---
[facility] Anesthesia Record Part II Anesthesia Record Part II Discharge Time: 10:30 Destination: Surgical Day Care (OP Surgery) PACU nurse assessment reviewed?: Yes Patient Condition:: Good Anesthesia Complications:: None Swallowing reflex intact?: Yes Cyanosis?: No Blood Pressure: 122/78 Pulse Rate: 81 Temperature: 97.2 F Mental Status: Alert & Oriented Pain level:: 0 Nausea and/or vomitting:: None Intake, IV Amount: 0
[2023-06-07 07:52] VITALS: BP 122/78; PULSE 81; TEMP 36.2
== END 2023-06-01 11:01 | disposition home or self-care (01) ==
PROVIDERS: PCP Physician Assistant; Visit Provider Nurse Practitioner Obstetrics & Gynecology
PROC: 0UB98ZZ Excision of Uterus, Via Natural or Artificial Opening Endoscopic (ICD-10-PCS; CPT 58558; principal; 2023-06-01 09:15)
DX: N84.0 Polyp of corpus uteri (principal); N95.0 Postmenopausal bleeding; E11.9 Type 2 diabetes mellitus without complications
CPT/HCPCS: 58558; 81025; 82962; 96374; J2405

== ENCOUNTER 2023-07-14 17:33 | Emergency (ER) | payer MEDICAID, SELFPAY ==
[2023-07-14 17:33] VITALS: BP 161/93; PULSE 82; RESP 18; TEMP 36.7; O2SAT 95; BMI 40.6
--- NOTE | 2023-07-14 17:56 | EXP.UTC ---
Discharge Plan Disposition Patient Disposition: Home, Self-Care Condition: Good Prescriptions Prescriptions: New azithromycin [Zithromax Z-Zhen] 250 mg tablet See Rx Instructions .ROUTE .COMPLEX 5 Days Qty: 6 0RF Rx Instructions: For 250 mg dose pack: take 500 mg today (day 1), then 250 mg for 4 days (days 2-5) No Action loratadine 10 mg tablet 10 mg PO DAILY fluconazole [Diflucan] 150 mg tablet 150 mg PO Q3D Qty: 2 6RF Rx Instructions: may repeat dose after 72 hours terconazole 0.8 % cream 1 appful vaginal HS 7 Days Qty: 20 6RF meclizine 25 mg tablet 25 mg PO DAILY PRN (Reason: dizziness) Qty: 30 0RF esomeprazole magnesium [Nexium] 40 mg capsule,delayed release(DR/EC) 40 mg PO DAILY atorvastatin 40 mg tablet See Rx Instructions .ROUTE .COMPLEX Rx Instructions: TAKE ONE TABLET BY MOUTH ONCE A DAY glipizide 10 mg tablet extended release 24hr See Rx Instructions .ROUTE .COMPLEX Rx Instructions: TAKE ONE TABLET BY MOUTH ONCE A DAY metoprolol succinate 100 mg tablet extended release 24 hr See Rx Instructions .ROUTE .COMPLEX Rx Instructions: TAKE ONE TABLET BY MOUTH ONCE A DAY aspirin 81 mg tablet,delayed release (DR/EC) 81 mg PO DAILY levothyroxine 125 mcg tablet See Rx Instructions .ROUTE .COMPLEX Rx Instructions: TAKE ONE TABLET BY MOUTH ONCE A DAY FOR THYROID lisinopril 5 mg tablet See Rx Instructions .ROUTE .COMPLEX Rx Instructions: TAKE ONE TABLET BY MOUTH ONCE A DAY furosemide 20 mg tablet See Rx Instructions .ROUTE .COMPLEX Rx Instructions: TAKE ONE TABLET BY MOUTH ONCE A DAY ergocalciferol (vitamin D2) 1,250 mcg (50,000 unit) capsule See Rx Instructions .ROUTE .COMPLEX Rx Instructions: TAKE ONE CAPSULE BY MOUTH EVERY WEEK fluticasone propionate [24 Hour Allergy Relief] 50 mcg/actuation spray,suspension 1 spray NS BID cholecalciferol (vitamin D3) 25 mcg (1,000 unit) tablet 25 mcg PO DAILY Ozempic 0.25 mg or 0.5 mg (2 mg/3 mL) pen injector 0.25 mg SQ WEEKLY Rx Instructions: for 4 weeks Referrals Follow up/Referrals: Dora Moran PA [Primary Care Provider] - See instructions Activity Restrictions/Add. Instructions Additional Instructions/Restrictions: *Monitor Temp, Over the counter Motrin or Tylenol as directed/as needed Tylenol every 4 hours and Motrin every 6 hours (as long as your family doctor has told you that you can take it) for fever or pain. and straight to ER if unable to lower temp less than 101.0 after medication given *Warm salt water gargles may help to soothe the throat *Throat Lozenges? *Warm fluids like tea with honey may help to soothe the throat? *Sleep elevated *Humidifier/Vaporizer Take medication as prescribed Follow up IMMEDIATELY for new or worsening symptoms or no Noticeable improvement over the next 48-72 hours. 911 for difficulty breathing or swallowing Clinical Impressions Clinical Impression: Sinusitis Qualifiers: Sinusitis location: unspecified location Chronicity: unspecified Qualified Code(s): J32.9 - Chronic sinusitis, unspecified Instructions Patient Instructions: Sinusitis, DI for Sinusitis Discharge ED Provider: Jacklyn Cosme [facility] [place] General Stated complaint: congestion, h/a, fever, sinus pressure Mode of Arrival: Ambulatory Source of Information: Patient Limitations: No Limitations Time Seen by Provider: 07/14/23 17:56 Description of Symptoms (Recalled from Triage Doc. by RN): Patient reports sinus pressure, headache, fever and congestion for 2 days. HEENT Symptoms (Recalled from RN notes): Yes Resp Symptoms (Recalled from RN notes): No Skin Symptoms (Recalled from RN notes): No MS Symptoms (Recalled from RN notes): No Functional Status (Recalled from RN notes): wnl History of Present Illness Provider Complaint: Patient states th
[2023-07-14 18:36] VITALS: BP 161/93; PULSE 82; RESP 18; TEMP 36.7; O2SAT 95
== END 2023-07-14 18:36 | disposition home or self-care (01) ==
PROVIDERS: Emergency Provider Nurse Practitioner; PCP Physician Assistant
DX: J01.90 Acute sinusitis, unspecified (principal); R50.9 Fever, unspecified; E03.9 Hypothyroidism, unspecified; E78.5 Hyperlipidemia, unspecified; I10 Essential (primary) hypertension; J45.909 Unspecified asthma, uncomplicated; F32.A Depression, unspecified; E53.8 Deficiency of other specified B group vitamins
CPT/HCPCS: 96372; 99212; 99214; G0463

== ENCOUNTER 2023-07-19 14:08 | Emergency (ER) | payer MEDICAID, SELFPAY ==
[2023-07-19 14:20] VITALS: BP 171/89; PULSE 82; RESP 20; TEMP 36.5; O2SAT 93; BMI 40.6
--- NOTE | 2023-07-19 14:28 | EXP.UTC ---
Discharge Plan Disposition Patient Disposition: Home, Self-Care Condition: Good Prescriptions Prescriptions: New phenazopyridine [Pyridium] 200 mg tablet 200 mg PO Q8H 2 Days Qty: 6 0RF ciprofloxacin HCl [Cipro] 500 mg tablet 500 mg PO BID 7 Days Qty: 14 0RF No Action loratadine 10 mg tablet 10 mg PO DAILY fluconazole [Diflucan] 150 mg tablet 150 mg PO Q3D Qty: 2 6RF Rx Instructions: may repeat dose after 72 hours terconazole 0.8 % cream 1 appful vaginal HS 7 Days Qty: 20 6RF meclizine 25 mg tablet 25 mg PO DAILY PRN (Reason: dizziness) Qty: 30 0RF esomeprazole magnesium [Nexium] 40 mg capsule,delayed release(DR/EC) 40 mg PO DAILY atorvastatin 40 mg tablet See Rx Instructions .ROUTE .COMPLEX Rx Instructions: TAKE ONE TABLET BY MOUTH ONCE A DAY glipizide 10 mg tablet extended release 24hr See Rx Instructions .ROUTE .COMPLEX Rx Instructions: TAKE ONE TABLET BY MOUTH ONCE A DAY metoprolol succinate 100 mg tablet extended release 24 hr See Rx Instructions .ROUTE .COMPLEX Rx Instructions: TAKE ONE TABLET BY MOUTH ONCE A DAY aspirin 81 mg tablet,delayed release (DR/EC) 81 mg PO DAILY levothyroxine 125 mcg tablet See Rx Instructions .ROUTE .COMPLEX Rx Instructions: TAKE ONE TABLET BY MOUTH ONCE A DAY FOR THYROID lisinopril 5 mg tablet See Rx Instructions .ROUTE .COMPLEX Rx Instructions: TAKE ONE TABLET BY MOUTH ONCE A DAY furosemide 20 mg tablet See Rx Instructions .ROUTE .COMPLEX Rx Instructions: TAKE ONE TABLET BY MOUTH ONCE A DAY ergocalciferol (vitamin D2) 1,250 mcg (50,000 unit) capsule See Rx Instructions .ROUTE .COMPLEX Rx Instructions: TAKE ONE CAPSULE BY MOUTH EVERY WEEK fluticasone propionate [24 Hour Allergy Relief] 50 mcg/actuation spray,suspension 1 spray NS BID cholecalciferol (vitamin D3) 25 mcg (1,000 unit) tablet 25 mcg PO DAILY Ozempic 0.25 mg or 0.5 mg (2 mg/3 mL) pen injector 0.25 mg SQ WEEKLY Rx Instructions: for 4 weeks azithromycin [Zithromax Z-Zhen] 250 mg tablet See Rx Instructions .ROUTE .COMPLEX 5 Days Qty: 6 0RF Rx Instructions: For 250 mg dose pack: take 500 mg today (day 1), then 250 mg for 4 days (days 2-5) Referrals Follow up/Referrals: Dora Moran PA [Primary Care Provider] - See instructions Activity Restrictions/Add. Instructions Additional Instructions/Restrictions: Drink plenty of fluids. Take tylenol or ibuprofen for pain or fever. Take the medications as directed. Follow up with your regular doctor. GO TO THE ER FOR ANY WORSENING SYMPTOMS The pyridium will make your urine turn orange, this is an expected side effect. It will stain your clothes if it comes into contact with them. We will culture the urine. That will tell what bacteria is causing your infection and which antibiotics will treat it best. Sometimes the first antibiotic we prescribe turns out to not work against different bacteria. So, make sure you follow up within 3 days if you are not getting better. Clinical Impressions Clinical Impression: UTI (urinary tract infection) Instructions Patient Instructions: Urine Culture, DI for Urinary Tract Infection (UTI), Phenazopyridine Discharge ED Provider: Ganga Murillo [facility] General Stated complaint: suspected uti, lower back pain, pain with urinatio Mode of Arrival: Ambulatory Source of Information: Patient Limitations: No Limitations Time Seen by Provider: 07/19/23 14:28 Description of Symptoms (Recalled from Triage Doc. by RN): burning and pain with urination, lower back pain HEENT Symptoms (Recalled from RN notes): No Resp Symptoms (Recalled from RN notes): No Skin Symptoms (Recalled from RN notes): No MS Symptoms (Recalled from RN notes): No Functional Sta
[2023-07-19 14:43] LABS: Microscopic, Urine URINE MICROSCOPIC (MICROSCOPIC)
[2023-07-19 14:51] VITALS: BP 171/89; PULSE 93; RESP 16; TEMP 36.5; O2SAT 93
[2023-07-19 14:55] LABS: Appearance,Urine Clear (Clear); Color,Urine Yellow (Yellow)
[2023-07-19 14:56] LABS: Bilirubin,Urine Negative (Negative); Blood, Urine Negative (Negative); Glucose,Urine (UA) Trace (Negative); Ketones,Urine Negative (Negative); Leukocyte Esterase,Urine Negative (Negative); Nitrate,Urine Negative (Negative); PH,Urine 6.5 (5.0-8.5); Protein,Urine Negative (Negative); Urobilinogen,Urine 0.2 EU/dl (0.2)
[2023-07-19 15:14] LABS: WBC,Urine Occasional #/hpf (0-3)
[2023-07-19 15:15] LABS: Bacteria,Urine Trace /lpf
== END 2023-07-19 14:52 | disposition home or self-care (01) ==
PROVIDERS: Emergency Provider Nurse Practitioner Family; PCP Physician Assistant
DX: N39.0 Urinary tract infection, site not specified (principal); B96.1 Klebsiella pneumoniae [K. pneumoniae] as the cause of diseases classified elsewhere; B96.4 Proteus (mirabilis) (morganii) as the cause of diseases classified elsewhere; M54.59 Other low back pain; I10 Essential (primary) hypertension; E78.5 Hyperlipidemia, unspecified; E03.9 Hypothyroidism, unspecified; J45.909 Unspecified asthma, uncomplicated; E53.8 Deficiency of other specified B group vitamins; F32.A Depression, unspecified; E66.01 Morbid (severe) obesity due to excess calories; Z68.41 Body mass index [BMI] 40.0-44.9, adult
CPT/HCPCS: 81001; 87086; 87088; 87186; 99212; 99214; G0463

== ENCOUNTER 2023-07-26 17:59 | Emergency (ER) | payer MEDICAID, SELFPAY ==
[2023-07-26 19:00] VITALS: BP 134/73; PULSE 65; RESP 19; TEMP 37; O2SAT 97; BMI 39.4
[2023-07-26 19:25] LABS: Microscopic, Urine URINE MICROSCOPIC (MICROSCOPIC)
--- NOTE | 2023-07-26 19:26 | EXP.UTC ---
Discharge Plan Disposition Patient Disposition: Home, Self-Care Condition: Good Prescriptions Prescriptions: No Action loratadine 10 mg tablet 10 mg PO DAILY fluconazole [Diflucan] 150 mg tablet 150 mg PO Q3D Qty: 2 6RF Rx Instructions: may repeat dose after 72 hours terconazole 0.8 % cream 1 appful vaginal HS 7 Days Qty: 20 6RF meclizine 25 mg tablet 25 mg PO DAILY PRN (Reason: dizziness) Qty: 30 0RF esomeprazole magnesium [Nexium] 40 mg capsule,delayed release(DR/EC) 40 mg PO DAILY atorvastatin 40 mg tablet See Rx Instructions .ROUTE .COMPLEX Rx Instructions: TAKE ONE TABLET BY MOUTH ONCE A DAY glipizide 10 mg tablet extended release 24hr See Rx Instructions .ROUTE .COMPLEX Rx Instructions: TAKE ONE TABLET BY MOUTH ONCE A DAY metoprolol succinate 100 mg tablet extended release 24 hr See Rx Instructions .ROUTE .COMPLEX Rx Instructions: TAKE ONE TABLET BY MOUTH ONCE A DAY aspirin 81 mg tablet,delayed release (DR/EC) 81 mg PO DAILY levothyroxine 125 mcg tablet See Rx Instructions .ROUTE .COMPLEX Rx Instructions: TAKE ONE TABLET BY MOUTH ONCE A DAY FOR THYROID lisinopril 5 mg tablet See Rx Instructions .ROUTE .COMPLEX Rx Instructions: TAKE ONE TABLET BY MOUTH ONCE A DAY furosemide 20 mg tablet See Rx Instructions .ROUTE .COMPLEX Rx Instructions: TAKE ONE TABLET BY MOUTH ONCE A DAY ergocalciferol (vitamin D2) 1,250 mcg (50,000 unit) capsule See Rx Instructions .ROUTE .COMPLEX Rx Instructions: TAKE ONE CAPSULE BY MOUTH EVERY WEEK fluticasone propionate [24 Hour Allergy Relief] 50 mcg/actuation spray,suspension 1 spray NS BID cholecalciferol (vitamin D3) 25 mcg (1,000 unit) tablet 25 mcg PO DAILY Ozempic 0.25 mg or 0.5 mg (2 mg/3 mL) pen injector 0.25 mg SQ WEEKLY Rx Instructions: for 4 weeks azithromycin [Zithromax Z-Zhen] 250 mg tablet See Rx Instructions .ROUTE .COMPLEX 5 Days Qty: 6 0RF Rx Instructions: For 250 mg dose pack: take 500 mg today (day 1), then 250 mg for 4 days (days 2-5) phenazopyridine [Pyridium] 200 mg tablet 200 mg PO Q8H 2 Days Qty: 6 0RF ciprofloxacin HCl [Cipro] 500 mg tablet 500 mg PO BID 7 Days Qty: 14 0RF Referrals Follow up/Referrals: Dora Moran PA [Primary Care Provider] - See instructions Activity Restrictions/Add. Instructions Additional Instructions/Restrictions: *Monitor Temp, Over the counter Motrin or Tylenol as directed/as needed Tylenol every 4 hours and Motrin every 6 hours (as long as your family doctor has told you that you can take it) for fever or pain. and straight to ER if unable to lower temp less than 101.0 after medication given *Warm salt water gargles may help to soothe the throat *Throat Lozenges? *Warm fluids like tea with honey may help to soothe the throat? *Sleep elevated *Humidifier/Vaporizer *Flonase 2 sprays in each nostril daily but be aware that it may take 2-3 days before you notice improvement Make sure to follow up with your Family Doctor in the 48 hours for your Urine culture results and further examination if you are still not feeling well Follow up IMMEDIATELY for new or worsening symptoms or no Noticeable improvement over the next 48-72 hours. 911 for difficulty breathing or swallowing You were tested for today for Upper Respiratory Panel with COVID19 your test result should be back in the next 24, you may Check your Results on the [facility] Portal Clinical Impressions Clinical Impression: Viral syndrome Instructions Patient Instructions: DI for Ear Pain-Adult, DI for Fever (Symptom) -- Adult Discharge ED Provider: Jacklyn Cosme [facility] [place] HPI General Stated complaint: possible UTI Mode of Arrival: Ambulatory Source of Information: Patient Limitations: No Limitations Time Seen by Provider:
[2023-07-26 19:49] VITALS: BP 134/73; PULSE 65; RESP 19; TEMP 37; O2SAT 97
[2023-07-26 19:49] LABS: Appearance,Urine CLEAR (Clear); Bilirubin,Urine Negative (Negative); Blood, Urine Negative (Negative); Color,Urine YELLOW (Yellow); Glucose,Urine (UA) Negative (Negative); Ketones,Urine Negative (Negative); Leukocyte Esterase,Urine Negative (Negative); Nitrate,Urine Negative (Negative); Protein,Urine Negative (Negative); Specific Gravity, Urine <= 1.005 (1.005-1.030); Urobilinogen,Urine 0.2 EU/dl (0.2)
[2023-07-26 20:05] LABS: WBC,Urine Occasional #/hpf (0-3)
[2023-07-26 20:21] LABS: Adenovirus,PCR Not Detected (NotDetected); Bordetella Pertussis Not Detected (NotDetected); Chlamydophila Pneumoniae, PCR Not Detected (NotDetected); Coronavirus 19, PCR Not Detected (NotDetected); Coronavirus 229E Not Detected (NotDetected); Coronavirus NL63 Not Detected (NotDetected); Coronavirus OC43 Not Detected (NotDetected); Coronovirus HKU1,PCR Not Detected (NotDetected); Human Metapneumovirus Not Detected (NotDetected); Influenza A, PCR Not Detected (NotDetected); Influenza AH1, 2009 Not Detected (NotDetected); Influenza AH1, PCR Not Detected (NotDetected); Influenza AH3,PCR Not Detected (NotDetected); Influenza B, PCR Not Detected (NotDetected); Mycoplasma Pneumoniae, PCR Not Detected (NotDetected); Parainfluenza 1, PCR Not Detected (NotDetected); Parainfluenza 2, PCR Not Detected (NotDetected); Parainfluenza 3, PCR Not Detected (NotDetected); Parainfluenza 4, PCR Not Detected (NotDetected); Respiratory Syncytial Virus Not Detected (NotDetected); Rhinovirus/Enterovirus Not Detected (NotDetected)
== END 2023-07-26 20:19 | disposition home or self-care (01) ==
PROVIDERS: Emergency Provider Nurse Practitioner; PCP Physician Assistant
DX: B96.89 Other specified bacterial agents as the cause of diseases classified elsewhere; M54.59 Other low back pain; R50.9 Fever, unspecified; H92.03 Otalgia, bilateral; B34.9 Viral infection, unspecified; I10 Essential (primary) hypertension; E78.5 Hyperlipidemia, unspecified; E03.9 Hypothyroidism, unspecified; E53.8 Deficiency of other specified B group vitamins; J45.909 Unspecified asthma, uncomplicated; F32.A Depression, unspecified; Z68.41 Body mass index [BMI] 40.0-44.9, adult; R30.0 Dysuria
CPT/HCPCS: 81001; 87086; 87088; 87186; 87581; 87632; 87798; 99212; 99213; G0463

== ENCOUNTER 2023-09-09 12:29 | Emergency (ER) | payer MEDICAID, SELFPAY ==
[2023-09-09 12:40] VITALS: BP 161/85; PULSE 66; RESP 20; TEMP 37.1; O2SAT 94; BMI 37.4
--- NOTE | 2023-09-09 12:50 | EXP.UTC ---
Discharge Plan Disposition Patient Disposition: Home, Self-Care Condition: Good Prescriptions Prescriptions: New benzonatate [benzonatate] 100 mg capsule 100 mg PO TIDP PRN (Reason: Cough) Qty: 30 0RF methylprednisolone 4 mg Tablets,Dose Pack 4 mg PO DIRECTED Qty: 21 0RF amoxicillin [amoxicillin] 875 mg tablet 875 mg PO Q12H Qty: 20 0RF No Action loratadine 10 mg tablet 10 mg PO DAILY fluconazole [Diflucan] 150 mg tablet 150 mg PO Q3D Qty: 2 6RF Rx Instructions: may repeat dose after 72 hours terconazole 0.8 % cream 1 appful vaginal HS 7 Days Qty: 20 6RF meclizine 25 mg tablet 25 mg PO DAILY PRN (Reason: dizziness) Qty: 30 0RF esomeprazole magnesium [Nexium] 40 mg capsule,delayed release(DR/EC) 40 mg PO DAILY metoprolol succinate 100 mg tablet extended release 24 hr See Rx Instructions .ROUTE .COMPLEX Qty: 30 0RF Dose Instruction: TAKE ONE TABLET BY MOUTH ONCE A DAY Rx Instructions: TAKE ONE TABLET BY MOUTH ONCE A DAY ondansetron 4 mg tablet,disintegrating 4 mg PO Q8H PRN (Reason: nausea and vomiting) Qty: 30 0RF atorvastatin 40 mg tablet See Rx Instructions .ROUTE .COMPLEX Rx Instructions: TAKE ONE TABLET BY MOUTH ONCE A DAY glipizide 10 mg tablet extended release 24hr See Rx Instructions .ROUTE .COMPLEX Rx Instructions: TAKE ONE TABLET BY MOUTH ONCE A DAY aspirin 81 mg tablet,delayed release (DR/EC) 81 mg PO DAILY levothyroxine 125 mcg tablet See Rx Instructions .ROUTE .COMPLEX Rx Instructions: TAKE ONE TABLET BY MOUTH ONCE A DAY FOR THYROID lisinopril 5 mg tablet See Rx Instructions .ROUTE .COMPLEX Rx Instructions: TAKE ONE TABLET BY MOUTH ONCE A DAY furosemide 20 mg tablet See Rx Instructions .ROUTE .COMPLEX Rx Instructions: TAKE ONE TABLET BY MOUTH ONCE A DAY ergocalciferol (vitamin D2) 1,250 mcg (50,000 unit) capsule See Rx Instructions .ROUTE .COMPLEX Rx Instructions: TAKE ONE CAPSULE BY MOUTH EVERY WEEK fluticasone propionate [24 Hour Allergy Relief] 50 mcg/actuation spray,suspension 1 spray NS BID cholecalciferol (vitamin D3) 25 mcg (1,000 unit) tablet 25 mcg PO DAILY Ozempic 0.25 mg or 0.5 mg (2 mg/3 mL) pen injector 0.25 mg SQ WEEKLY Rx Instructions: for 4 weeks azithromycin [Zithromax Z-Zhen] 250 mg tablet See Rx Instructions .ROUTE .COMPLEX 5 Days Qty: 6 0RF Rx Instructions: For 250 mg dose pack: take 500 mg today (day 1), then 250 mg for 4 days (days 2-5) phenazopyridine [Pyridium] 200 mg tablet 200 mg PO Q8H 2 Days Qty: 6 0RF ciprofloxacin HCl [Cipro] 500 mg tablet 500 mg PO BID 7 Days Qty: 14 0RF Referrals Follow up/Referrals: Dora Moran PA [Primary Care Provider] - See instructions Activity Restrictions/Add. Instructions Additional Instructions/Restrictions: Drink plenty of fluids. Take tylenol or ibuprofen for pain or fever. Take the medications as directed. Follow up with your regular doctor. GO TO THE ER FOR ANY WORSENING SYMPTOMS Clinical Impressions Clinical Impression: Sinusitis Instructions Patient Instructions: Sinusitis, DI for Sinusitis Discharge ED Provider: Ganga Murillo [facility] General Stated complaint: headache, facial pressure, sinus pressure Mode of Arrival: Ambulatory Source of Information: Patient Limitations: No Limitations Time Seen by Provider: 09/09/23 12:50 Description of Symptoms (Recalled from Triage Doc. by RN): PATIENT C/O HEADACHE, FEVER, CONGESTION, AND SINUS PRESSURE X 2 DAYS HEENT Symptoms (Recalled from RN notes): Yes Resp Symptoms (Recalled from RN notes): No Skin Symptoms (Recalled from RN notes): No MS Symptoms (Recalled from RN notes): No Functional Status (Recalled from RN notes): WNL History of Present Illness Provider Complaint: She states that for the past 2 days she has had worsening sinus co
[2023-09-09 12:52] VITALS: BP 161/85; PULSE 66; RESP 20; TEMP 37.1; O2SAT 94
== END 2023-09-09 13:10 | disposition home or self-care (01) ==
PROVIDERS: Emergency Provider Nurse Practitioner Family; PCP Physician Assistant
DX: J01.90 Acute sinusitis, unspecified (principal); R53.83 Other fatigue; J45.909 Unspecified asthma, uncomplicated; I10 Essential (primary) hypertension; E78.5 Hyperlipidemia, unspecified; E03.9 Hypothyroidism, unspecified; E53.8 Deficiency of other specified B group vitamins
CPT/HCPCS: 99212; 99214; G0463

== ENCOUNTER 2023-09-27 14:47 | Emergency (ER) | payer MEDICAID, SELFPAY ==
--- NOTE | 2023-09-27 14:58 | EXP.UTC ---
Discharge Plan Disposition Patient Disposition: Home, Self-Care Condition: Good Prescriptions Prescriptions: New azithromycin [Zithromax] 250 mg tablet 250 mg PO UD DOSE PK Qty: 6 0RF Rx Instructions: Take two (2) tablets today, then one (1) tablet days #2 thru #5 benzonatate [benzonatate] 100 mg capsule 100 mg PO TIDP PRN (Reason: Cough) Qty: 30 0RF methylprednisolone 4 mg Tablets,Dose Pack 4 mg PO DIRECTED Qty: 21 0RF No Action loratadine 10 mg tablet 10 mg PO DAILY fluconazole [Diflucan] 150 mg tablet 150 mg PO Q3D Qty: 2 6RF Rx Instructions: may repeat dose after 72 hours terconazole 0.8 % cream 1 appful vaginal HS 7 Days Qty: 20 6RF meclizine 25 mg tablet 25 mg PO DAILY PRN (Reason: dizziness) Qty: 30 0RF esomeprazole magnesium [Nexium] 40 mg capsule,delayed release(DR/EC) 40 mg PO DAILY metoprolol succinate 100 mg tablet extended release 24 hr See Rx Instructions .ROUTE .COMPLEX Qty: 30 0RF Dose Instruction: TAKE ONE TABLET BY MOUTH ONCE A DAY Rx Instructions: TAKE ONE TABLET BY MOUTH ONCE A DAY ondansetron 4 mg tablet,disintegrating 4 mg PO Q8H PRN (Reason: nausea and vomiting) Qty: 30 0RF atorvastatin 40 mg tablet See Rx Instructions .ROUTE .COMPLEX Rx Instructions: TAKE ONE TABLET BY MOUTH ONCE A DAY glipizide 10 mg tablet extended release 24hr See Rx Instructions .ROUTE .COMPLEX Rx Instructions: TAKE ONE TABLET BY MOUTH ONCE A DAY aspirin 81 mg tablet,delayed release (DR/EC) 81 mg PO DAILY levothyroxine 125 mcg tablet See Rx Instructions .ROUTE .COMPLEX Rx Instructions: TAKE ONE TABLET BY MOUTH ONCE A DAY FOR THYROID lisinopril 5 mg tablet See Rx Instructions .ROUTE .COMPLEX Rx Instructions: TAKE ONE TABLET BY MOUTH ONCE A DAY furosemide 20 mg tablet See Rx Instructions .ROUTE .COMPLEX Rx Instructions: TAKE ONE TABLET BY MOUTH ONCE A DAY ergocalciferol (vitamin D2) 1,250 mcg (50,000 unit) capsule See Rx Instructions .ROUTE .COMPLEX Rx Instructions: TAKE ONE CAPSULE BY MOUTH EVERY WEEK fluticasone propionate [24 Hour Allergy Relief] 50 mcg/actuation spray,suspension 1 spray NS BID cholecalciferol (vitamin D3) 25 mcg (1,000 unit) tablet 25 mcg PO DAILY Ozempic 0.25 mg or 0.5 mg (2 mg/3 mL) pen injector 0.25 mg SQ WEEKLY Rx Instructions: for 4 weeks phenazopyridine [Pyridium] 200 mg tablet 200 mg PO Q8H 2 Days Qty: 6 0RF Referrals Follow up/Referrals: Dora Moran PA [Primary Care Provider] - See instructions Activity Restrictions/Add. Instructions Additional Instructions/Restrictions: Drink plenty of fluids. Take tylenol or ibuprofen for pain or fever. Take the medications as directed. Follow up with your regular doctor. GO TO THE ER FOR ANY WORSENING SYMPTOMS Don't start the oral steroids until tomorrow, since you had the shot here today. Clinical Impressions Clinical Impression: Sinusitis Instructions Patient Instructions: Sinusitis, DI for Sinusitis Discharge ED Provider: Ganga Murillo [facility] General Stated complaint: [place], sinus pressure Time Seen by Provider: 09/27/23 14:58 History of Present Illness Provider Complaint: She states that for the past 2 weeks she has had sinus congestion. She states that her symptoms are worsening. Related Data Home Medications Medication Instructions Recorded Confirmed loratadine 10 mg tablet 10 mg PO DAILY allergies 11/29/19 06/21/23 esomeprazole magnesium 40 mg 40 mg PO DAILY Acid Reflux 04/01/23 06/21/23 capsule,delayed release (Nexium) aspirin 81 mg tablet,delayed 81 mg PO DAILY heart health 05/28/23 06/21/23 release atorvastatin 40 mg tablet See Rx Instructions .Route 05/28/23 06/21/23 .COMPLEX Cholesterol cholecalciferol (vitamin D3) 25 25 mcg PO DAILY Supplement 05/28/23 06/21/23 mcg (1,000 un
[2023-09-27 15:00] VITALS: BP 146/94; PULSE 84; RESP 18; TEMP 36.7; O2SAT 95; BMI 37.4
[2023-09-27 15:59] VITALS: BP 146/94; PULSE 84; RESP 18; TEMP 36.7; O2SAT 95
== END 2023-09-27 15:59 | disposition home or self-care (01) ==
PROVIDERS: Emergency Provider Nurse Practitioner Family; PCP Physician Assistant
DX: J01.90 Acute sinusitis, unspecified (principal); R51.9 Headache, unspecified; J45.909 Unspecified asthma, uncomplicated; I10 Essential (primary) hypertension; E78.5 Hyperlipidemia, unspecified; E03.9 Hypothyroidism, unspecified
CPT/HCPCS: 96372; 99212; 99214; G0463

== ENCOUNTER 2023-10-10 12:07 | Emergency (ER) | payer MEDICAID, SELFPAY ==
[2023-10-10 14:17] VITALS: BP 0/0; PULSE 0; RESP 0; TEMP -17.7; TEMP 0
== END 2023-10-10 14:18 | disposition left against medical advice (07) ==
PROVIDERS: Emergency Provider Nurse Practitioner; PCP Physician Assistant
DX: Z53.21 Procedure and treatment not carried out due to patient leaving prior to being seen by health care provider (principal)

== ENCOUNTER 2023-11-25 11:53 | Emergency (ER) | payer MEDICAID, SELFPAY ==
[2023-11-25 12:35] VITALS: BP 154/78; PULSE 58; RESP 20; TEMP 36.5; O2SAT 98; BMI 40.3
--- NOTE | 2023-11-25 12:59 | EXP.UTC ---
Discharge Plan Disposition Patient Disposition: Home, Self-Care Condition: Good Prescriptions Prescriptions: New cephalexin 500 mg capsule 500 mg PO BID 5 Days Qty: 10 0RF ondansetron 4 mg tablet,disintegrating 4 mg PO Q8H PRN (Reason: nausea and vomiting) Qty: 10 0RF No Action loratadine 10 mg tablet 10 mg PO DAILY fluconazole [Diflucan] 150 mg tablet 150 mg PO Q3D Qty: 2 6RF Rx Instructions: may repeat dose after 72 hours terconazole 0.8 % cream 1 appful vaginal HS 7 Days Qty: 20 6RF meclizine 25 mg tablet 25 mg PO DAILY PRN (Reason: dizziness) Qty: 30 0RF esomeprazole magnesium [Nexium] 40 mg capsule,delayed release(DR/EC) 40 mg PO DAILY metoprolol succinate 100 mg tablet extended release 24 hr See Rx Instructions .ROUTE .COMPLEX Qty: 30 0RF Dose Instruction: TAKE ONE TABLET BY MOUTH ONCE A DAY Rx Instructions: TAKE ONE TABLET BY MOUTH ONCE A DAY ondansetron 4 mg tablet,disintegrating 4 mg PO Q8H PRN (Reason: nausea and vomiting) Qty: 30 0RF atorvastatin 40 mg tablet See Rx Instructions .ROUTE .COMPLEX Rx Instructions: TAKE ONE TABLET BY MOUTH ONCE A DAY glipizide 10 mg tablet extended release 24hr See Rx Instructions .ROUTE .COMPLEX Rx Instructions: TAKE ONE TABLET BY MOUTH ONCE A DAY aspirin 81 mg tablet,delayed release (DR/EC) 81 mg PO DAILY levothyroxine 125 mcg tablet See Rx Instructions .ROUTE .COMPLEX Rx Instructions: TAKE ONE TABLET BY MOUTH ONCE A DAY FOR THYROID lisinopril 5 mg tablet See Rx Instructions .ROUTE .COMPLEX Rx Instructions: TAKE ONE TABLET BY MOUTH ONCE A DAY furosemide 20 mg tablet See Rx Instructions .ROUTE .COMPLEX Rx Instructions: TAKE ONE TABLET BY MOUTH ONCE A DAY ergocalciferol (vitamin D2) 1,250 mcg (50,000 unit) capsule See Rx Instructions .ROUTE .COMPLEX Rx Instructions: TAKE ONE CAPSULE BY MOUTH EVERY WEEK fluticasone propionate [24 Hour Allergy Relief] 50 mcg/actuation spray,suspension 1 spray NS BID cholecalciferol (vitamin D3) 25 mcg (1,000 unit) tablet 25 mcg PO DAILY Ozempic 0.25 mg or 0.5 mg (2 mg/3 mL) pen injector 0.25 mg SQ WEEKLY Rx Instructions: for 4 weeks phenazopyridine [Pyridium] 200 mg tablet 200 mg PO Q8H 2 Days Qty: 6 0RF azithromycin [Zithromax] 250 mg tablet 250 mg PO UD DOSE PK Qty: 6 0RF Rx Instructions: Take two (2) tablets today, then one (1) tablet days #2 thru #5 benzonatate [benzonatate] 100 mg capsule 100 mg PO TIDP PRN (Reason: Cough) Qty: 30 0RF methylprednisolone 4 mg Tablets,Dose Pack 4 mg PO DIRECTED Qty: 21 0RF Referrals Follow up/Referrals: Dora Moran PA [Primary Care Provider] - See instructions Activity Restrictions/Add. Instructions Additional Instructions/Restrictions: *Increase fluids. Water not Soda or Tea *Start antibiotic immediately and be sure to take as ordered for the FULL length of time although you should start to see improvement over the next 48 hours *Be SURE to follow up anytime for new or worsening symptoms with your family doctor. AND in 48 hours for urine culture results with your family doctor, if you do not have a doctor then you may call back to the [facility] for urine culture results and further treatment. We do recommend that you choose and establish care with a Primary Care Physician. ?AND follow up with them ?in 10-14 days to repeat UA to ensure infection is resolved and blood no longer present *Be sure to let your PCP know that we sent urine cultures from the [facility] so they can follow up to ensure that you area the on the correct antibiotic Call your doctor office and make appointment for 48 hours (2 days from today) ?to follow up and get the results of your urine culture and further treatment Clinical Impressions Clinical Impression: UTI symptoms Instructions Patient Instructions: DI for Urinary Tract Infection (UTI), Cephalexin Discharge ED Provider: Jacklyn Cosme [facility] HPI General Stated complaint: lower back pain, poss uti Mode of Arrival: Ambulatory Source of Information: Patient Limitations: No Limitations Time Seen by Provider: 11/25/23 12:59 Description of Symptoms (Recalled from Triage Doc. by RN): PATIENT C/O BURNING WITH URINATION AND RIGHT LOWER BACK PAIN X 1 WEEK HEENT Symptoms (Recalled from RN notes): No Resp Symptoms (Recalled from RN notes): No Skin Symptoms (Recalled from RN notes): No MS Symptoms (Recalled from RN notes): No Functional Status (Recalled from RN notes): WNL History of Present Illness Provider Complaint: Patient states that she feels like she has a UTI States that she has been having burning with urination and feeling of urgency and frequency States that she has been having achy like feeling in her lower back like she gets with UTI Denies fever Denies abdominal pain States that she is a diabetic and has been watching her blood sugar close and it has been good States earlier the burning with urination made her feel a little nauseous Related Data Home Medications Medication Instructions Recorded Confirmed loratadine 10 mg tablet 10 mg PO DAILY allergies 11/29/19 06/21/23 esomeprazole magnesium 40 mg 40 mg PO DAILY Acid Reflux 04/01/23 06/21/23 capsule,delayed release (Nexium) aspirin 81 mg tablet,delayed 81 mg PO DAILY heart health 05/28/23 06/21/23 release atorvastatin 40 mg tablet See Rx Instructions .Route 05/28/23 06/21/23 .COMPLEX Cholesterol cholecalciferol (vitamin D3) 25 25 mcg PO DAILY Supplement 05/28/23 06/21/23 mcg (1,000 unit) tablet ergocalciferol (vitamin D2) 1,250 See Rx Instructions .Route 05/28/23 06/21/23 mcg (50,000 unit) capsule .COMPLEX Supplement fluticasone propionate 50 1 spray intranasal BID allergies 05/28/23 06/21/23 mcg/actuation nasal spray,suspension (24 Hour Allergy Relief) furosemide 20 mg tablet See Rx Instructions .Route 05/28/23 06/21/23 .COMPLEX Edema glipizide 10 mg tablet, extended See Rx Instructions .Route 05/28/23 06/21/23 release 24 hr .COMPLEX Diabetes levothyroxine 125 mcg tablet See Rx Instructions .Route 05/28/23 06/21/23 .COMPLEX thyroid lisinopril 5 mg tablet See Rx Instructions .Route 05/28/23 06/21/23 .COMPLEX bp semaglutide 0.25 mg or 0.5 mg (2 0.25 mg SQ WEEKLY Diabetes 05/28/23 06/21/23 mg/3 mL) subcutaneous pen injector (Ozempic) Previous Rx's Medication Instructions Recorded meclizine 25 mg tablet 25 mg PO DAILY PRN dizziness #30 03/10/21 tabs fluconazole 150 mg tablet 150 mg PO Q3D 2 doses #2 tabs 06/21/23 (Diflucan) terconazole 0.8 % vaginal cream 1 appful vaginal HS 7 days #20 06/21/23 grams phenazopyridine 200 mg tablet 200 mg PO Q8H 2 days #6 tabs 07/19/23 (Pyridium) metoprolol succinate 100 mg See Rx Instructions .Route 09/02/23 tablet,extended release 24 hr .COMPLEX #30 tabs ondansetron 4 mg disintegrating 4 mg PO Q8H PRN nausea and 09/07/23 tablet vomiting #30 tabs azithromycin 250 mg tablet 250 mg PO UD DOSE PK #6 tabs 09/27/23 (Zithromax) benzonatate 100 mg capsule 100 mg PO TIDP PRN Cough #30 caps 09/27/23 methylprednisolone 4 mg tablets in 4 mg PO DIRECTED #21 tabs 09/27/23 a dose pack cephalexin 500 mg capsule 500 mg PO BID 5 days #10 caps 11/25/23 ondansetron 4 mg disintegrating 4 mg PO Q8H PRN nausea and 11/25/23 tablet vomiting #10 tabs Allergies Allergy/AdvReac Type Severity Reaction Status Date / Time No Known Allergies Allergy Verified 09/27/23 15:04 Worker's Comp Is this a Worker's Comp case?: No [facility] Disclaimer: The information contained in this section may have been updated after the patient was seen, as this information can be updated by other users. Medical History (Updated 11/25/23 @ 13:09 by Jacklyn Cosme APRN) Allergic rhinitis Asthma B12 deficiency BMI 40.0-44.9, adult Depression HTN (hypertension) Hyperlipidemia Hypothyroidism Surgical History H/O hernia repair History of delivery History of cholecystectomy History of hysteroscopy Family History Other Asthma Diabetes Heart attack Hyperlipidemia Hypertension Thyroid disorder Social History Smoking Status: Never smoker second hand exposure: No alcohol intake: never substance use type: denies use current occupational status: other Travel in the last 8 weeks: None household members: spouse and children housing: house ROS Obtained: Yes All systems reviewed & no additional complaints except as documented and Yes Systems reviewed as appropriate & no additional complaints except as documented Constitutional Constitutional: Denies excessive sweating ENT Ears, Nose, Mouth, and Throat: Reports system reviewed and no additional complaints, except as documented and Reports as per HPI Cardiovascular Cardiovascular: Reports system reviewed and no additional complaints, except as documented, Reports as per HPI and Denies palpitations Respiratory Respiratory: Reports system reviewed and no additional complaints, except as documented and Reports as per HPI Gastrointestinal Gastrointestingal: Reports system reviewed and no additional complaints, except as documented, as per HPI and nausea; Denies abdominal pain Genitourinary Female Genitourinary: Reports system reviewed and no additional complaints, except as documented, Reports as per HPI, Reports dysuria, Reports urinary frequency and Reports urinary urgency Musculoskeletal Musculoskeletal: Reports system reviewed and no additional complaints, except as documented, Reports as per HPI and Reports back pain (low back ache right side) Neurologic Neurologic: Reports system reviewed and no additional complaints, except as documented and Reports as per HPI Endocrine Endocrine: Reports system reviewed and no additional complaints, except as documented, Reports as per HPI, Denies change in body appearance, Denies cold intolerance, Denies excessive sweating, Denies flushing, Denies heat intolerance, Denies palpitations, Denies polydipsia and Denies polyphagia Physical Exam General General appearance: alert and in no apparent distress ENT ENT exam: Present mucous membranes moist Respiratory Respiratory exam: Present normal lung sounds bilaterally; Absent respiratory distress or wheezes Cardiovascular Cardiovascular exam: Present regular rate, normal rhythm and normal heart sounds Abdominal Exam Abdominal exam: Present soft and normal bowel sounds; Absent distention or tenderness Neurological Exam Neurological exam: Present alert, oriented X3 and normal gait Medical Decision Making Kvng Inquiry Pt receiving controlled substance: No Kvng was queried for this patient: No Vital Signs: 11/25/23 12:35 Temperature 97.7 F Temperature Source Oral Pulse Rate [Left Brachial] 58 L Respiratory Rate 20 Blood Pressure [Left Arm] 154/78 H Blood Pressure Mean [Left Arm] 103 Blood Pressure Source [Left Arm] Automatic Cuff Blood Pressure Position [Left Arm] Sitting 02 Sat by Pulse Oximetry 98 Oxygen Delivery Method Room Air Lab Data Lab results reviewed: Yes I reviewed the patient's lab results.
[2023-11-25 13:01] LABS: Apearance,Urine Clear (Clear); Color,Urine Yellow (Yellow); Glucose,Urine (UA) 500 (Negative); Protein,Urine Negative (Negative); Specific Gravity, Urine 1.015 (1.005-1.030)
[2023-11-25 13:02] LABS: Bilirubin,Urine Negative (Negative); Blood, Urine Negative (Negative); Ketones,Urine Negative (Negative); UTC Leukocyte Esterase,Urine Negative (Negative); UTC Nitrate,Urine Negative (Negative); Urobilinogen,Urine 0.2 EU/dl (0.2)
[2023-11-25 13:10] VITALS: BP 154/78; PULSE 58; RESP 20; TEMP 36.5; O2SAT 98
== END 2023-11-25 13:13 | disposition home or self-care (01) ==
PROVIDERS: Emergency Provider Nurse Practitioner; PCP Physician Assistant
DX: R30.0 Dysuria (principal); R39.15 Urgency of urination; R35.0 Frequency of micturition; M54.50 Low back pain, unspecified; J45.909 Unspecified asthma, uncomplicated; I10 Essential (primary) hypertension; E78.5 Hyperlipidemia, unspecified; E03.9 Hypothyroidism, unspecified
CPT/HCPCS: 81003; 87086; 99212; 99214; G0463

== ENCOUNTER 2023-12-20 12:41 | Emergency (ER) | payer MEDICAID, SELFPAY ==
[2023-12-20 14:42] VITALS: BP 157/95; PULSE 71; RESP 19; TEMP 36.8; O2SAT 98; BMI 40.7
--- NOTE | 2023-12-20 14:48 | ED_ITS ---
Discharge Plan Disposition Patient Disposition: Home, Self-Care Condition: Good Prescriptions Prescriptions: New amoxicillin [amoxicillin] 875 mg tablet 875 mg PO Q12H Qty: 20 0RF benzonatate [benzonatate] 100 mg capsule 100 mg PO TIDP PRN (Reason: Cough) Qty: 30 0RF methylprednisolone 4 mg Tablets,Dose Pack 4 mg PO DIRECTED 6 Days Qty: 21 0RF Rx Instructions: Take 1 pack as directed for 6 days ondansetron 4 mg Tablet,Disintegrating 4 mg PO Q8H PRN (Reason: Nausea) Qty: 12 0RF No Action loratadine 10 mg tablet 10 mg PO DAILY fluconazole [Diflucan] 150 mg tablet 150 mg PO Q3D Qty: 2 6RF Rx Instructions: may repeat dose after 72 hours terconazole 0.8 % cream 1 appful vaginal HS 7 Days Qty: 20 6RF meclizine 25 mg tablet 25 mg PO DAILY PRN (Reason: dizziness) Qty: 30 0RF esomeprazole magnesium [Nexium] 40 mg capsule,delayed release(DR/EC) 40 mg PO DAILY ondansetron 4 mg tablet,disintegrating 4 mg PO Q8H PRN (Reason: nausea and vomiting) Qty: 30 0RF metoprolol succinate 100 mg tablet extended release 24 hr See Rx Instructions .ROUTE .COMPLEX Qty: 30 0RF Dose Instruction: TAKE ONE TABLET BY MOUTH ONCE A DAY Rx Instructions: TAKE ONE TABLET BY MOUTH ONCE A DAY lisinopril 5 mg tablet See Rx Instructions .ROUTE .COMPLEX Qty: 30 0RF Dose Instruction: TAKE ONE TABLET BY MOUTH ONCE A DAY Rx Instructions: TAKE ONE TABLET BY MOUTH ONCE A DAY levothyroxine 125 mcg tablet See Rx Instructions .ROUTE .COMPLEX Qty: 30 0RF Dose Instruction: TAKE ONE TABLET BY MOUTH ONCE A DAY FOR THYROID Rx Instructions: TAKE ONE TABLET BY MOUTH ONCE A DAY FOR THYROID atorvastatin 40 mg tablet See Rx Instructions .ROUTE .COMPLEX Rx Instructions: TAKE ONE TABLET BY MOUTH ONCE A DAY glipizide 10 mg tablet extended release 24hr See Rx Instructions .ROUTE .COMPLEX Rx Instructions: TAKE ONE TABLET BY MOUTH ONCE A DAY aspirin 81 mg tablet,delayed release (DR/EC) 81 mg PO DAILY furosemide 20 mg tablet See Rx Instructions .ROUTE .COMPLEX Rx Instructions: TAKE ONE TABLET BY MOUTH ONCE A DAY ergocalciferol (vitamin D2) 1,250 mcg (50,000 unit) capsule See Rx Instructions .ROUTE .COMPLEX Rx Instructions: TAKE ONE CAPSULE BY MOUTH EVERY WEEK fluticasone propionate [24 Hour Allergy Relief] 50 mcg/actuation spray,suspension 1 spray NS BID cholecalciferol (vitamin D3) 25 mcg (1,000 unit) tablet 25 mcg PO DAILY Ozempic 0.25 mg or 0.5 mg (2 mg/3 mL) pen injector 0.25 mg SQ WEEKLY Rx Instructions: for 4 weeks cephalexin 500 mg capsule 500 mg PO BID 5 Days Qty: 10 0RF ondansetron 4 mg tablet,disintegrating 4 mg PO Q8H PRN (Reason: nausea and vomiting) Qty: 10 0RF phenazopyridine [Pyridium] 200 mg tablet 200 mg PO Q8H 2 Days Qty: 6 0RF azithromycin [Zithromax] 250 mg tablet 250 mg PO UD DOSE PK Qty: 6 0RF Rx Instructions: Take two (2) tablets today, then one (1) tablet days #2 thru #5 benzonatate [benzonatate] 100 mg capsule 100 mg PO TIDP PRN (Reason: Cough) Qty: 30 0RF methylprednisolone 4 mg Tablets,Dose Pack 4 mg PO DIRECTED Qty: 21 0RF Referrals Follow up/Referrals: Dora Moran PA [Primary Care Provider] - See instructions Activity Restrictions/Add. Instructions Additional Instructions/Restrictions: Drink plenty of fluids. Take tylenol or ibuprofen for pain or fever. Take the medications as directed. Follow up with your regular doctor. GO TO THE ER FOR ANY WORSENING SYMPTOMS Clinical Impressions Clinical Impression: Sinusitis Instructions Patient Instructions: Sinusitis, DI for Sinusitis, Methylprednisolone, Amoxicillin Discharge ED Provider: Ganga Murillo [facility] General Stated complaint: fever and headache Mode of Arrival: Ambulatory Source of Information: Patient Limitations: No Limitations Time Seen by Provider: 12/20/23 14:39 Description of Symptoms (Recalled from Triage Doc. by RN): pt c/o a [place] and pressure above her eyes. pt states this has been ongoing x2 days. HEENT Symptoms (Recalled from RN notes): Yes Resp Symptoms (Recalled from RN notes): No Skin Symptoms (Recalled from RN notes): No MS Symptoms (Recalled from RN notes): No Functional Status (Recalled from RN notes): wnl Related Data Home Medications Medication Instructions Recorded Confirmed loratadine 10 mg tablet 10 mg PO DAILY allergies 11/29/19 06/21/23 esomeprazole magnesium 40 mg 40 mg PO DAILY Acid Reflux 04/01/23 06/21/23 capsule,delayed release (Nexium) aspirin 81 mg tablet,delayed 81 mg PO DAILY heart health 05/28/23 06/21/23 release atorvastatin 40 mg tablet See Rx Instructions .Route 05/28/23 06/21/23 .COMPLEX Cholesterol cholecalciferol (vitamin D3) 25 25 mcg PO DAILY Supplement 05/28/23 06/21/23 mcg (1,000 unit) tablet ergocalciferol (vitamin D2) 1,250 See Rx Instructions .Route 05/28/23 06/21/23 mcg (50,000 unit) capsule .COMPLEX Supplement fluticasone propionate 50 1 spray intranasal BID allergies 05/28/23 06/21/23 mcg/actuation nasal spray,suspension (24 Hour Allergy Relief) furosemide 20 mg tablet See Rx Instructions .Route 05/28/23 06/21/23 .COMPLEX Edema glipizide 10 mg tablet, extended See Rx Instructions .Route 05/28/23 06/21/23 release 24 hr .COMPLEX Diabetes semaglutide 0.25 mg or 0.5 mg (2 0.25 mg SQ WEEKLY Diabetes 05/28/23 06/21/23 mg/3 mL) subcutaneous pen injector (Ozempic) Previous Rx's Medication Instructions Recorded meclizine 25 mg tablet 25 mg PO DAILY PRN dizziness #30 03/10/21 tabs fluconazole 150 mg tablet 150 mg PO Q3D 2 doses #2 tabs 06/21/23 (Diflucan) terconazole 0.8 % vaginal cream 1 appful vaginal HS 7 days #20 06/21/23 grams phenazopyridine 200 mg tablet 200 mg PO Q8H 2 days #6 tabs 07/19/23 (Pyridium) ondansetron 4 mg disintegrating 4 mg PO Q8H PRN nausea and 09/07/23 tablet vomiting #30 tabs azithromycin 250 mg tablet 250 mg PO UD DOSE PK #6 tabs 09/27/23 (Zithromax) benzonatate 100 mg capsule 100 mg PO TIDP PRN Cough #30 caps 09/27/23 methylprednisolone 4 mg tablets in 4 mg PO DIRECTED #21 tabs 09/27/23 a dose pack cephalexin 500 mg capsule 500 mg PO BID 5 days #10 caps 11/25/23 levothyroxine 125 mcg tablet See Rx Instructions .Route 11/25/23 .COMPLEX #30 tabs lisinopril 5 mg tablet See Rx Instructions .Route 11/25/23 .COMPLEX #30 tabs metoprolol succinate 100 mg See Rx Instructions .Route 11/25/23 tablet,extended release 24 hr .COMPLEX #30 tabs ondansetron 4 mg disintegrating 4 mg PO Q8H PRN nausea and 11/25/23 tablet vomiting #10 tabs amoxicillin 875 mg tablet 875 mg PO Q12H #20 tabs 12/20/23 benzonatate 100 mg capsule 100 mg PO TIDP PRN Cough #30 caps 12/20/23 methylprednisolone 4 mg tablets in 4 mg PO DIRECTED 6 days #21 tabs 12/20/23 a dose pack ondansetron 4 mg disintegrating 4 mg PO Q8H PRN Nausea #12 tabs 12/20/23 tablet Allergies Allergy/AdvReac Type Severity Reaction Status Date / Time No Known Allergies Allergy Verified 09/27/23 15:04 Worker's Comp Is this a Worker's Comp case?: No [facility] Disclaimer: The information contained in this section may have been updated after the patient was seen, as this information can be updated by other users. Medical History (Updated 12/20/23 @ 14:53 by Ganga Murillo APRN) Allergic rhinitis Asthma B12 deficiency BMI 40.0-44.9, adult Depression HTN (hypertension) Hyperlipidemia Hypothyroidism Surgical History H/O hernia repair History of delivery History of cholecystectomy History of hysteroscopy Family History Other Asthma Diabetes Heart attack Hyperlipidemia Hypertension Thyroid disorder Social History Smoking Status: Never smoker second hand exposure: No alcohol intake: never substance use type: denies use current occupational status: other Travel in the last 8 weeks: None household members: spouse and children housing: house ROS Obtained: Yes All systems reviewed & no additional complaints except as documented Constitutional Constitutional: Reports poor appetite Eyes Eyes: Reports system reviewed and no additional complaints, except as documented ENT Ears, Nose, Mouth, and Throat: Reports as per HPI Cardiovascular Cardiovascular: Reports system reviewed and no additional complaints, except as documented and Denies chest pain Respiratory Respiratory: Denies shortness of breath, Denies chest congestion, Reports cough, Denies stridor and Denies wheezing Gastrointestinal Gastrointestingal: Reports system reviewed and no additional complaints, except as documented; Denies abdominal pain, diarrhea or vomiting Musculoskeletal Musculoskeletal: Reports system reviewed and no additional complaints, except as documented and Denies arthralgias Integumentary/Breasts Skin/Breast: Reports system reviewed and no additional complaints, except as documented and Denies rash Neurologic Neurologic: Denies paresthesias Allergic/Immunologic Allergic/Immunologic: Denies wheezing Physical Exam General General appearance: alert and in no apparent distress Eye Eye exam: Present normal appearance, PERRL and EOMI ENT ENT exam: Present mucous membranes moist and normal external ear exam Expanded ENT Exam External ear exam: Present normal external inspection TM/Canal exam: Bilateral TM: erythema and bulging Nose exam: Absent sinus tenderness Nasal speculum exam: Bilateral: normal Mouth exam: Present normal external inspection; Absent drooling Teeth exam: Present normal inspection Throat exam: Present tonsillar erythema and tonsillomegaly Neck Neck exam: Present normal inspection, full ROM and trachea midline; Absent tenderness, lymphadenopathy or thyromegaly Chest Chest inspection: Present normal inspection and symmetric chest wall rise; Absent tenderness or rash Respiratory Respiratory exam: Present normal lung sounds bilaterally; Absent respiratory distress, wheezes, stridor or accessory muscle use Cardiovascular Cardiovascular exam: Present regular rate, normal rhythm and normal heart sounds Abdominal Exam Abdominal exam: Present soft; Absent distention, tenderness, guarding, rebound or rigidity Extremities Exam Extremities exam: Present normal inspection, full ROM and normal capillary refill; Absent tenderness or calf tenderness Back Exam Back exam: Present normal inspection and full ROM; Absent tenderness Neurological Exam Neurological exam: Present alert and oriented X3 Psychiatric Psychiatric exam: Present normal affect and normal mood Skin Skin exam: Present warm, dry, intact and normal color Lymphatic Lymphatic Findings: no adenopathy Medical Decision Making Medical Records Medical records reviewed: No I reviewed the patient's medical records. Kvng Inquiry Pt receiving controlled substance: No Vital Signs: 12/20/23 14:42 Temperature 98.2 F Temperature Source Oral Pulse Rate [Left] 71 Respiratory Rate 19 Blood Pressure [Right Arm] 157/95 H Blood Pressure Mean [Right Arm] 115 Blood Pressure Source [Right Arm] Automatic Cuff Blood Pressure Position [Right Arm] Sitting 02 Sat by Pulse Oximetry 98 Oxygen Delivery Method Room Air
[2023-12-20 14:57] VITALS: BP 157/95; PULSE 71; RESP 19; TEMP 36.8
== END 2023-12-20 14:58 | disposition home or self-care (01) ==
PROVIDERS: Emergency Provider Nurse Practitioner Family; PCP Physician Assistant
DX: J01.90 Acute sinusitis, unspecified (principal); R51.9 Headache, unspecified; R09.81 Nasal congestion; I10 Essential (primary) hypertension; E03.9 Hypothyroidism, unspecified; E78.5 Hyperlipidemia, unspecified
CPT/HCPCS: 99212; 99214; G0463

== ENCOUNTER 2023-12-27 22:00 | Outpatient (CLI) | payer MEDICAID, SELFPAY ==
[2023-12-27 18:19] LABS: Basophils % 0.2 % (0.1-2.0); Eosinophils # 0.1 K/mm3 (0.0-0.4); Eosinophils % 1.2 % (0.1-12.0); Hematocrit 43.4 % (37.0-47.0); Hemoglobin 14.9 g/dL (12.2-16.2); Lymphocytes # 1.4 K/mm3 (0.7-4.5); Lymphocytes % 21.4 % (10-50); Mean Corpuscular HGB Conc 34.2 g/dL (31.8-35.4); Mean Corpuscular Hemoglobin 30.4 pg (27.0-31.2); Mean Corpuscular Volume 88.8 fl (81-99); Mean Platelet Volume 9.7 fl (7.4-10.4); Monocytes # 0.3 K/mm3 (0.1-1.0); Monocytes % 4.5 % (1.7-9.3); Neutrophils # 4.7 K/mm3 (1.8-7.8); Neutrophils % 72.6 % (37.0-80.0); Platelet Count 201 K/mm3 (142-424); Red Blood Count 4.89 M/mm3 (4.20-5.40); Red Cell Distribution Width 14.5 % (11.5-17.5); White Blood Count 6.5 K/mm3 (4.8-10.8)
[2023-12-27 18:25] LABS: Alanine Aminotransferase 38 U/L (12-78); Albumin Level 4.1 g/dl (3.5-5.0); Albumin/Globulin Ratio 1.6 (1.1-1.8); Alkaline Phosphatase 132 U/L (38-126); Anion Gap 15.9 mEq/L (5-15); Aspartate Amino Transferase 30 U/L (14-36); Blood Urea Nitrogen 11 mg/dl (7-17); Calcium 9.3 mg/dl (8.4-10.2); Carbon Dioxide 25 mmol/L (22.0-30.0); Chloride 99 mmol/L (98-107); Cholesterol 304 mg/dl (140-200); Estimated Glomerular Filt Rate 126 ml/min (>60); GFR (African American) 153 ML/MIN (>60); Globulin 2.5 g/dL (1.3-3.2); Glucose 317 mg/dl (74-100); HDL Cholesterol 38 mg/dl (40-60); Potassium 3.9 mmoL/L (3.5-5.1); Sodium 136 mmol/L (136-145); Total Protein,Serum 6.6 g/dl (6.3-8.2)
[2023-12-27 18:34] LABS: Triglycerides 523 mg/dl (30-150)
[2023-12-27 18:36] LABS: Direct LDL Cholesterol 116.98 mg/dL (100-129)
[2023-12-27 18:44] LABS: 25-OH Vitamin D, Total < 12.8 ng/mL (30-100)
[2023-12-27 18:56] LABS: Thyroid Stimulating Hormone 1.03 uIU/mL (0.465-4.68)
[2023-12-27 19:15] LABS: Vitamin B12 206 pg/mL (239-931)
[2023-12-27 21:44] LABS: Hemoglobin A1C 8.6 % (4.0-6.0)
== END 2023-12-27 23:59 ==
LOC: LAB.DROPOF 22:01
PROVIDERS: PCP Physician Assistant; Visit Provider Physician Assistant
DX: E11.9 Type 2 diabetes mellitus without complications (principal); E53.8 Deficiency of other specified B group vitamins; E55.9 Vitamin D deficiency, unspecified; Z79.84 Long term (current) use of oral hypoglycemic drugs; Z79.899 Other long term (current) drug therapy
CPT/HCPCS: 80053; 80061; 82306; 82607; 83036; 84443; 85025

== ENCOUNTER 2024-03-20 14:29 | Outpatient (CLI) | payer MEDICAID, SELFPAY ==
[2024-03-20 15:14] LABS: Basophils # 0.1 K/mm3 (0-0.2); Basophils % 0.5 % (0.1-2.0); Eosinophils # 0.1 K/mm3 (0.0-0.4); Eosinophils % 0.8 % (0.1-12.0); Hematocrit 42.8 % (37.0-47.0); Hemoglobin 14.3 g/dL (12.2-16.2); Lymphocytes # 3.6 K/mm3 (0.7-4.5); Lymphocytes % 30.7 % (10-50); Mean Corpuscular HGB Conc 33.3 g/dL (31.8-35.4); Mean Corpuscular Hemoglobin 30.3 pg (27.0-31.2); Mean Corpuscular Volume 90.8 fl (81-99); Monocytes # 0.5 K/mm3 (0.1-1.0); Monocytes % 4.5 % (1.7-9.3); Neutrophils # 7.5 K/mm3 (1.8-7.8); Neutrophils % 63.5 % (37.0-80.0); Platelet Count 209 K/mm3 (142-424); Red Blood Count 4.72 M/mm3 (4.20-5.40); Red Cell Distribution Width 14.6 % (11.5-17.5); White Blood Count 11.7 K/mm3 (4.8-10.8)
[2024-03-20 15:39] LABS: Chloride 103 mmol/L (98-107); Hemoglobin A1C 7.7 % (4.0-6.0)
[2024-03-20 15:40] LABS: Potassium 4.1 mmoL/L (3.5-5.1); Sodium 136 mmol/L (136-145)
[2024-03-20 15:42] LABS: Alanine Aminotransferase 31 U/L (12-78); Alkaline Phosphatase 103 U/L (38-126); Aspartate Amino Transferase 21 U/L (14-36); Bilirubin,Total 2.1 mg/dl (0.2-1.3); Blood Urea Nitrogen 31 mg/dl (7-17); Carbon Dioxide 30 mmol/L (22.0-30.0); Estimated Glomerular Filt Rate 57 ml/min (>60); GFR (African American) 68 ML/MIN (>60)
[2024-03-20 15:43] LABS: Albumin Level 4.2 g/dl (3.5-5.0); Albumin/Globulin Ratio 1.6 (1.1-1.8); Anion Gap 10.1 mEq/L (5-15); Calcium 10.1 mg/dl (8.4-10.2); Chol/HDL Ratio 3.2 (1-3.5); Cholesterol 253 mg/dl (140-200); Globulin 2.6 g/dL (1.3-3.2); Glucose 164 mg/dl (74-100); HDL Cholesterol 78 mg/dl (40-60); Iron 129 ug/dL (37-170); Total Protein,Serum 6.8 g/dl (6.3-8.2); Triglycerides 352 mg/dl (30-150); VLDL Cholesterol 70 mg/dL (0-40)
[2024-03-20 15:52] LABS: Total Iron Binding Capacity 284 ug/dL (265-497)
[2024-03-20 15:54] LABS: Direct LDL Cholesterol 110.37 mg/dL (100-129)
[2024-03-20 16:01] LABS: 25-OH Vitamin D, Total 15.7 ng/mL (30-100)
[2024-03-20 16:14] LABS: Thyroid Stimulating Hormone 1.26 uIU/mL (0.465-4.68)
[2024-03-20 16:18] LABS: Ferritin 228 ng/ml (11.1-264)
[2024-03-20 16:35] LABS: Vitamin B12 251 pg/mL (239-931)
[2024-03-22 16:32] LABS: H. pylori Breath Test Positive (Negative)
== END 2024-03-20 23:59 | disposition home or self-care (01) ==
LOC: LAB 14:30
PROVIDERS: PCP Physician Assistant; Visit Provider Physician Assistant
DX: R53.83 Other fatigue (principal); R14.2 Eructation
CPT/HCPCS: 36415; 80053; 80061; 82306; 82607; 82728; 83013; 83036; 83540; 83550; 84443; 85025

== ENCOUNTER 2024-05-03 14:47 | Outpatient (CLI) | payer MEDICAID, SELFPAY ==
--- NOTE | 2024-05-03 14:47 | CA_ITS ---
APPROVED REPORT EXAM: Comprehensive 2D, Doppler, and color-flow Echocardiogram Histologist: Mitra Carlton RT(R) Ht: 5 ft 0 in Wt: 198lbs BSA: 1.86 BP: 178/95 mmHg Indications: Abn EKG, htn, palpitations, HTN, DM, obesity, hyperlipidemia, asthma, dizziness 2D Dimensions LVEF (Peters's) 52.90 % F: 54 - 74 LV Volume 83.70 mL F: 46 - 106 LV Volume Index 45.0 mL/m2 F: 29 - 61 LA Volume 28.90 mL LA Volume Index 15.54 mL/m2 (M/F) 16-34 EF AP4 53.40 % EF AP2 53.8 % EF BP 52.9 % GL Strain -16.4 % M-Mode Dimensions RVDd 3.70 cm (0.9-2.6) LA Diam 3.55 cm (1.9-4.0) LVDd 3.62 cm (3.5-5.7) LVDs 2.74 cm (3.5-5.7) IVSd 1.13 cm (0.6-1.1) PWd 1.05 cm (0.6-1.1) EF (Teich) 49.30% FS 24.30% EDV (Teich) 55.20 mL ESV (Teich) 28.00 mL LV Diastology E Decel Time 323 (160-240 msec) E/A Ratio 0.86 Mitral Valve MV A Velocity 84.0 (40-130 cm/s) E/A Ratio 0.86 Left Ventricle The left ventricle is normal size. The left ventricular systolic function is low normal. There is increased LV wall thickness. There are no obvious regional wall motion abnormalities. Transmitral Doppler flow pattern suggests impaired LV relaxation. LVEF is 50%. Right Ventricle Right ventricle is mildly dilated. The right ventricular systolic function is normal. Atria Left atrium is mildly dilated. The right atrium is mildly dilated. There is no Doppler evidence of interatrial shunt. Aortic Valve The aortic valve is mildly thickened. There is no aortic valvular stenosis. No aortic regurgitation is present. Mitral Valve The mitral valve is normal in structure. Trace mitral regurgitation. Tricuspid Valve The tricuspid valve leaflets are thin and pliable. Trace tricuspid regurgitation. There is insufficient TR jet to estimate RVSP. Pulmonic Valve The pulmonary valve is normal in structure. Trace pulmonic regurgitation. Great Vessels The aortic root is normal in size. The ascending aorta is not well-visualized. IVC is normal in size and collapses >50% with inspiration. Pericardium There is no pericardial effusion. Other Information Study Quality: Technically Difficult Conclusion Technically difficult study due to poor acoustic windows. Low normal LV systolic function (LVEF 50%). Mild RV dilation. Biatrial dilation. No significant valvular stenosis or regurgitation. Due to technically difficult study and difficult to visualize wall motion and accurate LVEF, subsequent TTEs are recommended to be performed with ultrasound enhancing agent for better LV endocardial delineation. Electronically signed by : Krysta Robbins MD 05/06/2024 20:02:38
== END 2024-05-03 23:59 | disposition home or self-care (01) ==
LOC: RT 14:47
PROVIDERS: PCP Physician Assistant; Visit Provider Physician Assistant
DX: R94.31 Abnormal electrocardiogram [ECG] [EKG] (principal); R42 Dizziness and giddiness; E11.9 Type 2 diabetes mellitus without complications; Z79.84 Long term (current) use of oral hypoglycemic drugs; Z79.85 Long-term (current) use of injectable non-insulin antidiabetic drugs; K21.9 Gastro-esophageal reflux disease without esophagitis; I10 Essential (primary) hypertension; E78.5 Hyperlipidemia, unspecified
CPT/HCPCS: 93306

== ENCOUNTER 2024-10-03 14:49 | Outpatient (CLI) | payer MEDICAID, SELFPAY ==
--- NOTE | 2024-10-03 14:57 | XR_ITS ---
FINAL REPORT CLINICAL HISTORY: pain of right shoulder. fell 3 days ago. trouble lifting arm. COMPARISON: 12/01/2018 FINDINGS: RIGHT SHOULDER Three views demonstrate no acute fracture or dislocation. The humeral head is superiorly subluxed relative to the bony glenoid, which is probably related to an underlying supraspinatus tendon tear. There are mild hypertrophic changes of the acromioclavicular joint. IMPRESSION: Probable underlying supraspinatus tendon tear. Reviewed, Interpreted and Dictated by Ivan Bauman MD Transcribed by Lili Villareal Authenticated and [facility]
--- NOTE | 2024-10-03 15:00 | XR_ITS ---
FINAL REPORT CLINICAL HISTORY: pain of right upper arm. fell 3 days ago. trouble lifting arm. COMPARISON: 12/01/2018 FINDINGS: RIGHT HUMERUS Two views of the right humerus were obtained. There is no acute fracture or dislocation. The joint spaces are well-preserved. There is no acute soft tissue abnormality. IMPRESSION: No acute abnormality identified. Reviewed, Interpreted and Dictated by Ivan Bauman MD Transcribed by Lili Villareal Authenticated and [facility]
== END 2024-10-03 23:59 | disposition home or self-care (01) ==
PROVIDERS: PCP Physician Assistant; Visit Provider Physician Assistant
DX: M25.511 Pain in right shoulder (principal); M79.621 Pain in right upper arm
CPT/HCPCS: 73030; 73060

== ENCOUNTER 2024-11-30 10:51 | Outpatient (CLI) | payer MEDICAID, SELFPAY ==
--- NOTE | 2024-11-30 10:56 | US_ITS ---
FINAL REPORT TECHNIQUE: Multiple transverse and longitudinal images CLINICAL HISTORY: GILBERT SYNDROME FINDINGS: Status post cholecystectomy. No biliary ductal dilatation is appreciated. No fluid collections are seen. Limited portions of the right liver are unremarkable. Limited portions of the right kidney are unremarkable. IMPRESSION: Unremarkable exam. Reviewed, Interpreted and Dictated by Migdalia Epstein MD Transcribed by Winter Fuller Authenticated and [facility]
== END 2024-11-30 23:59 | disposition home or self-care (01) ==
LOC: RAD 10:53
PROVIDERS: PCP Physician Assistant; Visit Provider Physician Assistant
DX: E80.4 Gilbert syndrome (principal)
CPT/HCPCS: 76705

== ENCOUNTER 2025-03-06 15:44 | Outpatient (CLI) | payer MEDICAID, SELFPAY ==
--- NOTE | 2025-03-06 15:47 | MM_ITS ---
PROCEDURE INFORMATION: Exam: MG Bilateral Screening 3D Mammography Exam date and time: 03/06/2025 3:56 PM Age: 60 years old Clinical indication: Screening examination TECHNIQUE: Imaging protocol: Bilateral Screening tomosynthesis and 2D mammography including computer-aided detection (CAD) when performed. COMPARISON: 1. MG MM DIG SCREENING MAMM BI W/CAD 07/12/2020 3:00 PM 2. MG DMSB DIG MAMM-SCREEN NESTOR W/CAD 12/11/2016 4:16 PM FINDINGS: MAMMOGRAPHY: Breast composition: There are scattered areas of fibroglandular density. Mass: None. Architectural distortion: None. Calcifications: No suspicious calcifications. Asymmetric density: None. Skin thickening: None. Axillary adenopathy: None. IMPRESSION: No mammographic evidence of malignancy. Annual screening is recommended unless otherwise clinically indicated. ASSESSMENT: BI-RADS Category 1: Negative.
--- OUTSIDE RECORDS SUMMARY | 2025-03-06 15:47 | XMS_ITS ---
Author Organization [facility], [facility] Address [address] [place] [address] Phone Care Team Providers Care Supervisor [employer] Name Role Phone Mellisa SAMANIEGO, Chidi Joseph Unavailable [phone] Plan of Treatment No Plan of Treatment Recorded Assessments Includes: Assessments for all patient encounters No Assessments Recorded Medical Equipment - Implanted Devices Includes: Current and historical Devices No Medical Equipment Recorded Medications Administered Includes: Administered Medications in patient's chart No Administered Medications Recorded Results Includes: Results from 03/06/2024 through 03/06/2025 No Results Recorded For Specified Dates History of Present Illness History of Present Illness not supported for this document type No History of Present Illness Recorded Social History No Social History Recorded - Smoking Status Unknown Medical History Includes: Medical History in patient's chart No Medical History Recorded Family History Includes: Family History in patient's chart No Family History Recorded Review of Systems Review of Systems not supported for this document type No Review of Systems Recorded Mental Status No Mental Status Recorded Functional Status No Functional Status Recorded Physical Exam Physical Exam not supported for this document type No Physical Exam Recorded Insurance Includes: Active Insurance Policies Plan Name Member ID Group # Subscriber Relationship Effect nataly Dates 1 - [facility] [id number] Marlene king Clinical Notes Includes: Signed Clinical Notes starting from 10/29/2022 No Clinical Notes Recorded
--- OUTSIDE RECORDS SUMMARY | 2025-03-06 15:47 | XMS_ITS ---
Care Plan - [facility], [facility] Created on: March 06, 2025 Marlene Jean : 1965 Sex: Female Author Organization [facility], [facility] Address [address] [place] [address] Phone Care Team Providers Care Cargo Agent Name Role Phone Mellisa SAMANIEGO, Chidi Joseph Unavailable [phone]
== END 2025-03-06 23:59 | disposition home or self-care (01) ==
LOC: RAD 15:45
PROVIDERS: PCP Physician Assistant; Visit Provider Physician Assistant
DX: Z12.31 Encounter for screening mammogram for malignant neoplasm of breast (principal)
CPT/HCPCS: 77063; 77067

== ENCOUNTER 2025-04-08 13:45 | Emergency (ER) | payer MEDICAID, SELFPAY ==
[2025-04-08 13:49] VITALS: BP 100/63; PULSE 86; RESP 18; TEMP 36.7; O2SAT 96; BMI 34.0
--- NOTE | 2025-04-08 13:55 | ED_ITS ---
<Statement entered by Cheryl Chaudhari DO - 04/09/25 15:56> I was consulted by the MO, and we discussed the complexity of the problems being addressed. I approved the treatment and management plan for this patient's care in the emergency department, thus performing a substantive portion of the medical decision making. Cheryl Chaudhari DO Discharge Plan Disposition Patient Disposition: Home, Self-Care Condition: Good Prescriptions Prescriptions: New cefdinir 300 mg capsule 300 mg PO BID 5 Days Qty: 10 0RF No Action loratadine 10 mg tablet 10 mg PO DAILY lansoprazole [Prevacid] 30 mg capsule,delayed release(DR/EC) 30 mg PO BID 14 Days Qty: 28 2RF meclizine 25 mg tablet 25 mg PO DAILY PRN (Reason: dizziness) Qty: 30 0RF esomeprazole magnesium [Nexium] 40 mg capsule,delayed release(DR/EC) 40 mg PO DAILY nitroglycerin 0.4 mg tablet, sublingual 0.4 mg sublingual Q5M PRN (Reason: chest pain) Qty: 25 0RF Rx Instructions: do not exceed 3 doses per episode Ozempic 2 mg/dose (8 mg/3 mL) pen injector 2 mg SQ WEEKLY Qty: 3.75 2RF meloxicam 15 mg tablet 15 mg PO DAILY Qty: 30 2RF pregabalin [Lyrica] 50 mg capsule 50 mg PO BID Qty: 60 1RF fluticasone propionate [24 Hour Allergy Relief] 50 mcg/actuation spray,suspension 1 spray NS BID Qty: 16 2RF ergocalciferol (vitamin D2) 1,250 mcg (50,000 unit) capsule See Rx Instructions .ROUTE .COMPLEX Qty: 14 0RF Rx Instructions: TAKE ONE CAPSULE BY MOUTH EVERY WEEK dapagliflozin propanediol [Farxiga] 10 mg tablet 10 mg PO DAILY Qty: 30 2RF (DME) BD Integra Syringe 3 mL 25 gauge x 5/8 syringe See Rx Instructions .ROUTE .MEDSUPPLY Qty: 100 1RF Rx Instructions: To use for B-12 injection cyanocobalamin (vitamin B-12) 1,000 mcg/mL solution 1,000 mcg IM QMONTH Qty: 100 2RF Rx Instructions: Pt to inject 1ml daily x7 days,then Pt to inject 1ml weekly x4 weeks, then Pt to inject 1ml monthly. (DME) Aqinject Safety Syringe 1 mL 25 gauge x 1 syringe See Rx Instructions .Route Qty: 20 0RF Rx Instructions: As directed levothyroxine 125 mcg tablet See Rx Instructions .ROUTE .COMPLEX Qty: 90 0RF Dose Instruction: TAKE ONE TABLET BY MOUTH ONCE A DAY FOR THYROID Rx Instructions: TAKE ONE TABLET BY MOUTH ONCE A DAY FOR THYROID famotidine 40 mg tablet See Rx Instructions .ROUTE .COMPLEX Qty: 30 0RF Dose Instruction: TAKE ONE TABLET BY MOUTH ONCE A DAY Rx Instructions: TAKE ONE TABLET BY MOUTH ONCE A DAY valsartan-hydrochlorothiazide 320-25 mg tablet See Rx Instructions .ROUTE .COMPLEX Qty: 90 3RF Dose Instruction: TAKE ONE TABLET BY MOUTH ONCE A DAY Rx Instructions: TAKE ONE TABLET BY MOUTH ONCE A DAY lorazepam 0.5 mg tablet 0.5 mg PO BID PRN (Reason: anxiety) Qty: 30 0RF atorvastatin 80 mg tablet See Rx Instructions .ROUTE .COMPLEX Qty: 30 0RF Dose Instruction: TAKE ONE TABLET BY MOUTH AT BEDTIME Rx Instructions: TAKE ONE TABLET BY MOUTH AT BEDTIME metoprolol succinate 100 mg tablet extended release 24 hr See Rx Instructions .ROUTE .COMPLEX Qty: 30 0RF Dose Instruction: TAKE ONE TABLET BY MOUTH ONCE A DAY Rx Instructions: TAKE ONE TABLET BY MOUTH ONCE A DAY cholecalciferol (vitamin D3) 25 mcg (1,000 unit) tablet See Rx Instructions .ROUTE .COMPLEX Qty: 30 0RF Dose Instruction: TAKE ONE TABLET BY MOUTH ONCE A DAY Rx Instructions: TAKE ONE TABLET BY MOUTH ONCE A DAY glipizide 10 mg tablet extended release 24hr See Rx Instructions .ROUTE .COMPLEX Qty: 30 0RF Dose Instruction: TAKE ONE TABLET BY MOUTH ONCE A DAY Rx Instructions: TAKE ONE TABLET BY MOUTH ONCE A DAY aspirin 81 mg tablet,delayed release (DR/EC) 81 mg PO DAILY furosemide 20 mg tablet See Rx Instructions .ROUTE .COMPLEX Rx Instructions: TAKE ONE TABLET BY MOUTH ONCE A DAY Referrals Follow up/Referrals: Dora Moran PA [Primary Care Provider] - See instructions Activity Restrictions/Add. Instructions Additional Instructions/Restrictions: As we discussed I am sending in antibiotic to your pharmacy. [facility] as all the other pharmacies will be closed for the holiday. I have also given you a disimpaction sheet. Please follow that as well. Please follow-up with your PCP this week as we discussed to recheck your creatinine. If you have any persistent new or worsening signs or symptoms follow-up with your PCP return to the ER as needed. Clinical Impressions Clinical Impression: Pyuria, Acute nontraumatic kidney injury Constipation Qualifiers: Constipation type: unspecified constipation type Qualified Code(s): K59.00 - Constipation, unspecified Instructions Patient Instructions: DI for Low Back Pain Print Language Print Language: Serbian Discharge ED Provider: Cheryl Chaudhari General Adult HPI General Chief complaint: Back Pain/Injury Stated complaint: Lower pain, L arm pain, Poss. UTI Time Seen by Provider: 04/08/25 13:55 Mode of Arrival: Ambulatory Source of Information: Patient Description of Symptoms (Recalled from ER Triage Doc. by RN): Pt presents with c/o Left sided back pain and left lower abdominal pain x 1 week. Pt states she has had some burning with urination and has seen some blood in her urine. History of Present Illness HPI narrative: Patient presents for evaluation of left flank and left lower abdominal pain. Patient states that she has had 1 week of left flank pain along with some burning with urination and has seen blood when urinating. She denies any fever chills hemoptysis hematochezia melena nausea vomiting diarrhea. She has never had a kidney stone before. She denies any injury. Related Data Home Medications ?Medication ?Instructions ?Recorded ?Confirmed loratadine 10 mg tablet 10 mg PO DAILY allergies 11/29/19 08/22/24 esomeprazole magnesium 40 mg 40 mg PO DAILY Acid Reflux 04/01/23 08/22/24 capsule,delayed release (Nexium) aspirin 81 mg tablet,delayed 81 mg PO DAILY heart health 05/28/23 08/22/24 release furosemide 20 mg tablet See Rx Instructions .Route 05/28/23 08/22/24 .COMPLEX Edema Previous Rx's ?Medication ?Instructions ?Recorded meclizine 25 mg tablet 25 mg PO DAILY PRN dizziness #30 03/10/21 tabs ergocalciferol (vitamin D2) 1,250 See Rx Instructions .Route 12/29/23 mcg (50,000 unit) capsule .COMPLEX Supplement #14 caps fluticasone propionate 50 1 spray intranasal BID allergies 12/29/23 mcg/actuation nasal #16 grams spray,suspension (24 Hour Allergy Relief) dapagliflozin propanediol 10 mg 10 mg PO DAILY #30 tabs 12/31/23 tablet (Farxiga) syringe with needle, safety 3 mL #100 ea 12/31/23 25 gauge x 5/8 (BD Integra Syringe) nitroglycerin 0.4 mg sublingual 0.4 mg sublingual Q5M PRN chest 03/03/24 tablet pain #25 tabs cyanocobalamin (vitamin B-12) 1,000 mcg IM QMONTH Vitamin B-12 03/21/24 1,000 mcg/mL injection solution Deficiency #100 mL syringe with needle, safety 1 mL #20 ea 03/21/24 25 gauge x 1 (Aqinject Safety Syringe) levothyroxine 125 mcg tablet See Rx Instructions .Route 04/03/24 .COMPLEX #90 tabs lansoprazole 30 mg capsule,delayed 30 mg PO BID 14 days #28 caps 05/09/24 release (Prevacid) meloxicam 15 mg tablet 15 mg PO DAILY #30 tabs 06/27/24 semaglutide 2 mg/dose (8 mg/3 mL) 2 mg (0.75 mL) SQ WEEKLY #3.75 mL 06/27/24 subcutaneous pen injector (Ozempic) famotidine 40 mg tablet See Rx Instructions .Route 06/28/24 .COMPLEX #30 tabs valsartan 320 See Rx Instructions .Route 07/04/24 mg-hydrochlorothiazide 25 mg tablet .COMPLEX #90 tabs lorazepam 0.5 mg tablet 0.5 mg PO BID PRN anxiety #30 tabs 07/14/24 pregabalin 50 mg capsule (Lyrica) 50 mg PO BID #60 caps 07/24/24 atorvastatin 80 mg tablet See Rx Instructions .Route 08/10/24 .COMPLEX #30 tabs cholecalciferol (vitamin D3) 25 See Rx Instructions .Route 08/16/24 mcg (1,000 unit) tablet .COMPLEX #30 tabs glipizide 10 mg tablet, extended See Rx Instructions .Route 08/16/24 release 24 hr .COMPLEX #30 tabs metoprolol succinate 100 mg See Rx Instructions .Route 08/16/24 tablet,extended release 24 hr .COMPLEX #30 tabs cefdinir 300 mg capsule 300 mg PO BID 5 days #10 caps 04/08/25 Allergies Allergy/AdvReac Type Severity Reaction Status Date / Time No Known Allergies Allergy Verified 08/22/24 14:55 [facility] Disclaimer: The information contained in this section may have been updated after the patient was seen, as this information can be updated by other users. Medical History Abnormal electrocardiogram [ECG] [EKG] Asthma Abnormal uterine bleeding due to endometrial polyp B12 deficiency BMI 40.0-44.9, adult Depression Allergic rhinitis HTN (hypertension) Hypothyroidism Hyperlipidemia Surgical History History of hysteroscopy with d/c and polypectomy History of cholecystectomy H/O hernia repair History of delivery Family History Other Asthma Diabetes Heart attack Hyperlipidemia Hypertension Thyroid disorder Social History Smoking Status: Never smoker second hand exposure: No alcohol intake: never substance use type: denies use current occupational status: other Travel in the last 8 weeks?: None household members: spouse and children housing: house Have you lived/traveled outside US in past 30 days?: No Contact w/someone who lives/traveled outside US past 30 days?: No Exposure to someone with infectious disease in past 14 days?: No Do you have a fever (greater than 100.4 F or 38 C)?: No Have you tested positive for COVID-19?: No Exposed to someone with COVID-19 in past 14 days?: No Do you have a sore throat?: No Do you have a cough?: No Do you have any weakness?: No Do you have any diarrhea?: No Are you experiencing any unusual bleeding?: No Do you have any muscle aches/pain?: Yes Do you have any abdominal pain?: No Are you experiencing loss of taste or smell?: No Other Medical History Have you received the Pneumonia Vaccine: No ROS Obtained: Yes Systems reviewed as appropriate & no additional complaints except as documented Physical Exam General General appearance: alert Respiratory Respiratory exam: Present normal lung sounds bilaterally Cardiovascular Cardiovascular exam: Present regular rate Neurological Exam Neurological exam: Present alert and oriented X3 Medical Decision Making Medical Records Medical records reviewed: Yes I reviewed the patient's medical records. Screening: Per USPSTF and CDC recommendations, given the prevalence of disease in our region, it is our hospital?s policy to screen for HIV and viral Hepatitis for all patients aged 18 and over and those with ongoing risk factors. Kvng Inquiry Pt receiving controlled substance: No Vital Signs: 04/08/25 13:49 04/08/25 16:23 04/08/25 16:25 Temperature 98.1 F Temperature Source Oral Pulse Rate 66 69 Pulse Rate [Right] 86 Respiratory Rate 18 18 Blood Pressure 96/68 L 96/68 L Blood Pressure [Right Arm] 100/63 L Blood Pressure Mean [Right Arm] 75 Blood Pressure Source [Right Arm] Automatic Cuff Blood Pressure Position [Right Arm] Sitting 02 Sat by Pulse Oximetry 96 97 98 Oxygen Delivery Method Room Air Room Air 04/08/25 16:48 Temperature 98.3 F Temperature Source Oral Pulse Rate 65 Pulse Rate [Right] Respiratory Rate 18 Blood Pressure 105/65 L Blood Pressure [Right Arm] Blood Pressure Mean [Right Arm] Blood Pressure Source [Right Arm] Blood Pressure Position [Right Arm] 02 Sat by Pulse Oximetry Oxygen Delivery Method Room Air Lab Data Lab results reviewed: Yes I reviewed the patient's lab results. Lab Results 04/08/25 13:55: Urine Color Yellow, Urine Appearance Clear, Urine pH 6.0, Ur Specific [place] >= 1.030, Urine Protein 2+ A, Urine Glucose (UA) Negative, Urine Ketones Negative, Urine Blood 3+ A, Urine Nitrate Positive A, Urine Bilirubin TNP, Urine Urobilinogen 0.2, Ur Leukocyte Esterase 2+ A, Urine RBC None, Urine WBC 50-100, Ur Squamous Epith Cells 10-20, Urine Bacteria Trace 04/08/25 14:58: WBC 12.5 H, RBC 3.76 L, Hgb 11.2 L, Hct 33.7 L, MCV 89.6, MCH 29.8, MCHC 33.2, RDW 13.1, Plt Count 286, MPV 10.2, Neut % (Auto) 80.1 H, Lymph % (Auto) 12.9, Woods % (Auto) 5.8, Eos % (Auto) 0.6, Baso % (Auto) 0.2, Neut # (Auto) 10.0 H, Lymph # (Auto) 1.6, Woods # (Auto) 0.7, Eos # (Auto) 0.1, Baso # (Auto) 0.0, Sodium 133 L, Potassium 3.8, Chloride 100, Carbon Dioxide 27, Anion Gap 9.8, BUN 31 H, Creatinine 2.00 H, Estimated Creat Clear 38, Estimated GFR 25 L, Est GFR ( Amer) 31 L, Glucose 145 H, Calcium 9.7, Total Bilirubin 1.6 H, AST 22, ALT 19, Alkaline Phosphatase 87, Total Protein 7.3, Albumin 4.3, Globulin 3.0, Albumin/Globulin Ratio 1.4 04/08/25 14:58 04/08/25 14:58 Orders (Tests/Meds): ED MEDICATIONS Discontinued Medications Generic Name Dose Route Start Last Admin Trade Name Freq PRN Reason Stop Dose Admin Acetaminophen 1,000 mg 04/08/25 15:50 04/08/25 16:17 Acetaminophen 500mg Tab PO 04/08/25 15:51 1,000 mg ONCE ONE Administration Cefdinir 300 mg 04/08/25 16:33 04/08/25 16:44 Cefdinir 300mg Capsule PO 04/08/25 16:34 300 mg ONCE ONE Administration Sodium Chloride 1,000 mls @ 999 mls/hr 04/08/25 16:14 04/08/25 16:19 Sod Chlor 0.9% 1000ml Bag IV 04/08/25 17:14 999 mls/hr .Q1H1M ONE Administration Ketorolac Tromethamine 15 mg 04/08/25 15:50 04/08/25 16:18 Ketorolac 30mg/Ml Vial IV 04/08/25 15:51 15 mg ONCE ONE Administration ORDERS Category Date Time Status CT abdomen pelvis wo con Stat Cat Scan 04/08/25 15:34 Completed CBC w/Auto Diff [Complete Blood Count Auto Diff] Stat Lab 04/08/25 14:58 Completed CMP [Comprehensive Metabolic Panel] Stat Lab 04/08/25 14:58 Completed Urinalysis and Microscopic Stat Lab 04/08/25 13:55 Completed Urine Culture Stat Micro 04/08/25 13:55 Received Medical Decision Narrative: In summary patient is a 60-year-old female who presents to the emergency department for evaluation of left flank and left lower quadrant abdominal pain and dysuria. Patient is hemodynamically stable upon arrival, afebrile. Physical exam is remarkable for no reproducible pain on palpation however she does have CVA tenderness to percussion on the left negative on the right. Abdomen soft nontender no rebound or guarding no rigidity. Bowel sounds normal active.. Differential diagnosis includes kidney stone versus pyelonephritis versus diverticulitis versus complicated urinary tract infection etc. Initial workup will be conducted with hematologic labs urinalysis CT scan abdomen pelvis. Initial interventions include crystalloid bolus Toradol Tylenol. Initial workup reviewed by me and her hematologic labs show a white count of 12.5 with a an H&H of 11.2 and 33.7 respectively with an absolute neutrophil count of 10.0 sodium is 133 BUN is 31 creatinine is 2 GFR is 25 and the remainder of her hematologic labs are nonactionable. Urinalysis shows 2 of protein 3+ blood nitrite +2+ leukocyte Estrace and microscopic exam shows no red blood cells 50-100 red cells 10-20 epithelial cells and trace bacteria in my informal interpretation of her CT scan abdomen pelvis does not show any perinephric stranding or stone however her bladder is thick-walled but contracted and patient has a large rectal stool ball. Upon repeat evaluation patient reports that she feels better after initial intervention. Given this patient was given Omnicef with first dose given here and a disimpaction sheet. Patient and I had a shared decision-making discussion regarding her renal function and patient is not intolerant of oral intake and feels comfortable going home with close follow-up with her PCP for recheck of her creatinine as opposed to admission which I offered. Patient was given strict return precautions that should she have worsening signs or symptoms inability to tolerate oral intake to return for evaluation for admission. Patient verbalized understanding and agreement. Critical Care Critical Care Time Critical Care Time: No
[2025-04-08 14:00] LABS: Microscopic, Urine URINE MICROSCOPIC (MICROSCOPIC)
[2025-04-08 14:19] LABS: Appearance,Urine CLEAR (Clear); Blood, Urine 3+ (Negative); Color,Urine YELLOW (Yellow); Glucose,Urine (UA) Negative (Negative); Ketones,Urine Negative (Negative); Leukocyte Esterase,Urine 2+ (Negative); Protein,Urine 2+ (Negative); Specific Gravity, Urine >= 1.030 (1.005-1.030); Urobilinogen,Urine 0.2 EU/dl (0.2)
[2025-04-08 14:27] LABS: Nitrate,Urine POSITIVE (Negative); WBC,Urine 50-100 #/hpf (0-3)
[2025-04-08 14:28] LABS: Bacteria,Urine Trace /lpf
[2025-04-08 15:13] LABS: Basophils % 0.2 % (0.1-2.0); Eosinophils # 0.1 Kmm3 (0.0-0.4); Eosinophils % 0.6 % (0.1-12.0); Hematocrit 33.7 % (37.0-47.0); Hemoglobin 11.2 g/dL (12.2-16.2); Immature Granulocytes # 0.05 10^3uL; Immature Granulocytes % 0.4 %; Lymphocytes # 1.6 K/mm3 (0.7-4.5); Lymphocytes % 12.9 % (10-50); Mean Corpuscular HGB Conc 33.2 g/dL (31.8-35.4); Mean Corpuscular Hemoglobin 29.8 pg (27.0-31.2); Mean Corpuscular Volume 89.6 fl (81-99); Mean Platelet Volume 10.2 fl (7.4-10.4); Monocytes # 0.7 K/mm3 (0.1-1.0); Monocytes % 5.8 % (1.7-9.3); Neutrophils % 80.1 % (37.0-80.0); Nucleated Red Blood Cells # 0 10^3/uL; Nucleated Red Blood Cells % 0 %; Platelet Count 286 K/mm3 (142-424); Red Blood Count 3.76 M/mm3 (4.20-5.40); Red Cell Distribution Width 13.1 % (11.5-17.5); Red Cell Distribution Width-SD 42.5 fL; White Blood Count 12.5 K/mm3 (4.8-10.8)
[2025-04-08 15:25] LABS: Chloride 100 mmol/L (98-107)
[2025-04-08 15:26] LABS: Albumin Level 4.3 g/dl (3.5-5.0); Potassium 3.8 mmoL/L (3.5-5.1); Sodium 133 mmol/L (136-145)
[2025-04-08 15:28] LABS: Alanine Aminotransferase 19 U/L (12-78); Anion Gap 9.8 mEq/L (5-15); Aspartate Amino Transferase 22 U/L (14-36); Blood Urea Nitrogen 31 mg/dl (7-17); Carbon Dioxide 27 mmol/L (22.0-30.0); Creatinine Clearance Estimated 38 mL/min (50-200); Estimated Glomerular Filt Rate 25 ml/min (>60); GFR (African American) 31 ML/MIN (>60)
[2025-04-08 15:29] LABS: Albumin/Globulin Ratio 1.4 (1.1-1.8); Alkaline Phosphatase 87 U/L (38-126); Bilirubin,Total 1.6 mg/dl (0.2-1.3); Calcium 9.7 mg/dl (8.4-10.2); Glucose 145 mg/dl (74-100); Total Protein,Serum 7.3 g/dl (6.3-8.2)
--- NOTE | 2025-04-08 15:34 | CT_ITS ---
PROCEDURE INFORMATION: Exam: CT Abdomen And Pelvis Without Contrast Exam date and time: 04/08/2025 3:40 PM Age: 60 years old Clinical indication: Abdominal pain; Additional info: Left flank pain and dysuria TECHNIQUE: Imaging protocol: Computed tomography of the abdomen and pelvis without contrast. Radiation optimization: All CT scans at this facility use at least one of these dose optimization techniques: automated exposure control; mA and/or kV adjustment per patient size (includes targeted exams where dose is matched to clinical indication); or iterative reconstruction. COMPARISON: US LIVER 11/30/2024 10:50 AM FINDINGS: Lungs: Lung bases are clear as visualized. Liver: Normal. No mass. Gallbladder and biliary ducts: Status post cholecystectomy. Intra and extrahepatic bile ducts are unremarkable.. Pancreas: Normal. No ductal dilation. Spleen: Normal. No splenomegaly. Adrenal glands: Normal. No mass. Kidneys and ureters: No renal or ureteral calculi or obstruction bilaterally. Stomach and bowel: No bowel obstruction or acute inflammation. Appendix: No evidence of appendicitis. Intraperitoneal space: Unremarkable. No free air. No significant fluid collection. Vasculature: Multiple superficial venous varices over the bilateral groins and pudendal. Lymph nodes: Few small bilateral superficial inguinal lymph nodes. Likely reactive. Urinary bladder: Decompressed bladder. Reproductive: Unremarkable as visualized. Bones/joints: Unremarkable. No acute fracture. Soft tissues: Prior mesh repair of the ventral abdominal wall. No residual hernia is identified. IMPRESSION: 1. No bowel obstruction or acute inflammation. 2. No renal or ureteral calculi or obstruction bilaterally.
[2025-04-08] MEDS: ACETAMINOPHEN 500MG TAB 1000 MG PO (16:17)
[2025-04-08] MEDS: KETOROLAC 30MG/ML VIAL 15 MG IV (16:18)
[2025-04-08] MEDS: 0.9 % SODIUM CHLORIDE 1000ML 1,000 ML 999 ML IV (16:19)
[2025-04-08 16:23] VITALS: BP 96/68; PULSE 66; O2SAT 97
[2025-04-08 16:25] VITALS: BP 96/68; PULSE 69; RESP 18; O2SAT 98
[2025-04-08] MEDS: CEFDINIR 300MG CAPSULE 300 MG PO (16:44)
[2025-04-08 16:48] VITALS: BP 105/65; PULSE 65; RESP 18; TEMP 36.8; O2SAT 98
== END 2025-04-08 16:48 | disposition home or self-care (01) ==
PROVIDERS: Physician Assistant; Emergency Provider Emergency Medicine; PCP Physician Assistant
DX: R10.32 Left lower quadrant pain (principal); R82.81 Pyuria; K59.00 Constipation, unspecified; R30.0 Dysuria; R31.9 Hematuria, unspecified; N17.9 Acute kidney failure, unspecified
CPT/HCPCS: 74176; 80053; 81001; 85025; 87086; 87088; 87186; 96361; 96374; 99284; J1885; J7030

== ENCOUNTER 2025-06-12 17:17 | Emergency (ER) | payer MEDICAID, SELFPAY ==
--- NOTE | 2025-06-12 17:30 | ED_ITS ---
Discharge Plan Disposition Patient Disposition: Home, Self-Care Condition: Good Prescriptions Prescriptions: New methocarbamol 750 mg tablet 1,500 mg PO Q8H Qty: 42 0RF sulfamethoxazole-trimethoprim [Bactrim DS] 800-160 mg tablet 1 tab PO BID 5 Days Qty: 10 0RF No Action loratadine 10 mg tablet 10 mg PO DAILY lansoprazole [Prevacid] 30 mg capsule,delayed release(DR/EC) 30 mg PO BID 14 Days Qty: 28 2RF meclizine 25 mg tablet 25 mg PO DAILY PRN (Reason: dizziness) Qty: 30 0RF esomeprazole magnesium [Nexium] 40 mg capsule,delayed release(DR/EC) 40 mg PO DAILY nitroglycerin 0.4 mg tablet, sublingual 0.4 mg sublingual Q5M PRN (Reason: chest pain) Qty: 25 0RF Rx Instructions: do not exceed 3 doses per episode Ozempic 2 mg/dose (8 mg/3 mL) pen injector 2 mg SQ WEEKLY Qty: 3.75 2RF meloxicam 15 mg tablet 15 mg PO DAILY Qty: 30 2RF pregabalin [Lyrica] 50 mg capsule 50 mg PO BID Qty: 60 1RF fluticasone propionate [24 Hour Allergy Relief] 50 mcg/actuation spray,suspension 1 spray NS BID Qty: 16 2RF ergocalciferol (vitamin D2) 1,250 mcg (50,000 unit) capsule See Rx Instructions .ROUTE .COMPLEX Qty: 14 0RF Rx Instructions: TAKE ONE CAPSULE BY MOUTH EVERY WEEK dapagliflozin propanediol [Farxiga] 10 mg tablet 10 mg PO DAILY Qty: 30 2RF (DME) BD Integra Syringe 3 mL 25 gauge x 5/8 syringe See Rx Instructions .ROUTE .MEDSUPPLY Qty: 100 1RF Rx Instructions: To use for B-12 injection cyanocobalamin (vitamin B-12) 1,000 mcg/mL solution 1,000 mcg IM QMONTH Qty: 100 2RF Rx Instructions: Pt to inject 1ml daily x7 days,then Pt to inject 1ml weekly x4 weeks, then Pt to inject 1ml monthly. (DME) Aqinject Safety Syringe 1 mL 25 gauge x 1 syringe See Rx Instructions .Route Qty: 20 0RF Rx Instructions: As directed levothyroxine 125 mcg tablet See Rx Instructions .ROUTE .COMPLEX Qty: 90 0RF Dose Instruction: TAKE ONE TABLET BY MOUTH ONCE A DAY FOR THYROID Rx Instructions: TAKE ONE TABLET BY MOUTH ONCE A DAY FOR THYROID famotidine 40 mg tablet See Rx Instructions .ROUTE .COMPLEX Qty: 30 0RF Dose Instruction: TAKE ONE TABLET BY MOUTH ONCE A DAY Rx Instructions: TAKE ONE TABLET BY MOUTH ONCE A DAY valsartan-hydrochlorothiazide 320-25 mg tablet See Rx Instructions .ROUTE .COMPLEX Qty: 90 3RF Dose Instruction: TAKE ONE TABLET BY MOUTH ONCE A DAY Rx Instructions: TAKE ONE TABLET BY MOUTH ONCE A DAY lorazepam 0.5 mg tablet 0.5 mg PO BID PRN (Reason: anxiety) Qty: 30 0RF atorvastatin 80 mg tablet See Rx Instructions .ROUTE .COMPLEX Qty: 30 0RF Dose Instruction: TAKE ONE TABLET BY MOUTH AT BEDTIME Rx Instructions: TAKE ONE TABLET BY MOUTH AT BEDTIME metoprolol succinate 100 mg tablet extended release 24 hr See Rx Instructions .ROUTE .COMPLEX Qty: 30 0RF Dose Instruction: TAKE ONE TABLET BY MOUTH ONCE A DAY Rx Instructions: TAKE ONE TABLET BY MOUTH ONCE A DAY cholecalciferol (vitamin D3) 25 mcg (1,000 unit) tablet See Rx Instructions .ROUTE .COMPLEX Qty: 30 0RF Dose Instruction: TAKE ONE TABLET BY MOUTH ONCE A DAY Rx Instructions: TAKE ONE TABLET BY MOUTH ONCE A DAY glipizide 10 mg tablet extended release 24hr See Rx Instructions .ROUTE .COMPLEX Qty: 30 0RF Dose Instruction: TAKE ONE TABLET BY MOUTH ONCE A DAY Rx Instructions: TAKE ONE TABLET BY MOUTH ONCE A DAY aspirin 81 mg tablet,delayed release (DR/EC) 81 mg PO DAILY furosemide 20 mg tablet See Rx Instructions .ROUTE .COMPLEX Rx Instructions: TAKE ONE TABLET BY MOUTH ONCE A DAY cefdinir 300 mg capsule 300 mg PO BID 5 Days Qty: 10 0RF Referrals Follow up/Referrals: Dora Moran PA [Primary Care Provider, Medical] - See instructions Activity Restrictions/Add. Instructions Additional Instructions/Restrictions: As we discussed I have sent in a muscle relaxer to your pharmacy. Please use caution and operating motor vehicles while on this medication and in 8 hours of use. If you have persistent new or worsening signs or symptoms follow-up with your PCP return to the ER as needed. I have also sent in a prescription for urinary tract infection. Please take your antibiotics till its gone. Clinical Impressions Clinical Impression: Back pain, thoracic Qualifiers: Chronicity: acute Back pain laterality: left Qualified Code(s): M54.6 - Pain in thoracic spine Urinary tract infection Qualifiers: Urinary tract infection type: site unspecified Hematuria presence: with hematuria Qualified Code(s): N39.0 - Urinary tract infection, site not specified Print Language Print Language: Kazakh Discharge ED Provider: Julio Pérez General Adult HPI <VEL Rubin - Last Filed: 06/12/25 21:47> General Chief complaint: PAIN Stated complaint: Pain in left rib cage and back,no injury Time Seen by Provider: 06/12/25 17:30 History of Present Illness HPI narrative: Patient presents for evaluation of 3 days of back pain. Patient states that she has had pain located around her left scapula for the last 3 days. It has not been constant but intermittent. She states it was present when she woke up 3 days ago. She states when it is worse when up and moving. She is currently not having any pain shortness of breath cardiac chest pain fever chills hemoptysis hematochezia melena nausea vomiting diarrhea dysuria hematuria. Related Data Home Medications ?Medication ?Instructions ?Recorded ?Confirmed loratadine 10 mg tablet 10 mg PO DAILY allergies 08/22/24 esomeprazole magnesium 40 mg 40 mg PO DAILY Acid Reflu x 04/01/23 08/22/24 capsule,delayed release (Nexium) aspirin 81 mg tablet,delayed 81 mg PO DAILY heart heal th 05/28/23 08/22/24 release furosemide 20 mg tablet See Rx Instructions .Route 0 05/28/23 08/22/24 .COMPLEX Edema Previous Rx's ?Medication ?Instructions ?Recorded meclizine 25 mg tablet 25 mg PO DAILY PRN dizziness #30 03/10/21 tabs ergocalciferol (vitamin D2) 1,250 See Rx Instructions .Route 12/29/23 mcg (50,000 unit) capsule .COMPLEX Supplement #14 caps fluticasone propionate 50 1 spray intranasal BID aller gies 12/29/23 mcg/actuation nasal #16 grams spray,suspension (24 Hour Allergy Relief) dapagliflozin propanediol 10 mg 10 mg PO DAILY #30 tab s 12/31/23 tablet (Farga) syringe with needle, safety 3 mL #100 ea 12/31/23 25 gauge x 5/8 (BD Integra Syringe) nitroglycerin 0.4 mg sublingual 0.4 mg sublingual Q5M PRN chest 03/03/24 tablet pain #25 tabs cyanocobalamin (vitamin B-12) 1,000 mcg IM QMONTH So min B-12 03/21/24 1,000 mcg/mL injection solution Deficiency #100 mL syringe with needle, safety 1 mL #20 ea 03/21/24 25 gauge x 1 (Aqinject Safety Syringe) levothyroxine 125 mcg tablet See Rx Instructions .Rout e 04/03/24 .COMPLEX #90 tabs lansoprazole 30 mg capsule,delayed 30 mg PO BID 14 day s #28 caps 05/09/24 release (Prevacid) meloxicam 15 mg tablet 15 mg PO DAILY #30 tabs 06/15 02/05 semaglutide 2 mg/dose (8 mg/3 mL) 2 mg (0.75 mL) SQ WE EKLY #3.75 mL 06/27/24 subcutaneous pen injector (Ozempic) famotidine 40 mg tablet See Rx Instructions .Route 0 06/28/24 .COMPLEX #30 tabs valsartan 320 See Rx Instructions .Route 0 07/04/24 mg-hydrochlorothiazide 25 mg tablet .COMPLEX #90 tabs lorazepam 0.5 mg tablet 0.5 mg PO BID PRN anxiety #3 0 tabs 07/14/24 pregabalin 50 mg capsule (Lyrica) 50 mg PO BID #60 cap s 07/24/24 atorvastatin 80 mg tablet See Rx Instructions .Route 0 08/10/24 .COMPLEX #30 tabs cholecalciferol (vitamin D3) 25 See Rx Instructions .R oute 08/16/24 mcg (1,000 unit) tablet .COMPLEX #30 tabs glipizide 10 mg tablet, extended See Rx Instructions . Route 08/16/24 release 24 hr .COMPLEX #30 tabs metoprolol succinate 100 mg See Rx Instructions .Route 08/16/24 tablet,extended release 24 hr .COMPLEX #30 tabs cefdinir 300 mg capsule 300 mg PO BID 5 days #10 cap s 04/08/25 methocarbamol 750 mg tablet 1,500 mg (2 x 750 mg) PO Q 8H #42 06/12/25 tabs sulfamethoxazole 800 1 tab PO BID 5 days #10 tabs 06/12/25 mg-trimethoprim 160 mg tablet (Bactrim DS) Allergies Allergy/AdvReac Type Severity Reaction Status Date / Time No Known Allergies Allergy Verified 08/22/24 14:55 PFS <VEL Rubin - Last Filed: 06/12/25 21:47> [facility] Disclaimer: The information contained in this section may have been updated after the patient was seen, as this information can be updated by other users. Medical History Abnormal electrocardiogram [ECG] [EKG] Asthma Abnormal uterine bleeding due to endometrial polyp B12 deficiency BMI 40.0-44.9, adult Depression Allergic rhinitis HTN (hypertension) Hypothyroidism Hyperlipidemia Surgical History History of hysteroscopy with d/c and polypectomy History of cholecystectomy H/O hernia repair History of delivery Family History Other Asthma Diabetes Heart attack Hyperlipidemia Hypertension Thyroid disorder Social History Smoking Status: Never smoker second hand exposure: No alcohol intake: never substance use type: denies use current occupational status: other Travel in the last 8 weeks?: None household members: spouse and children housing: house Have you lived/traveled outside [place] in past 30 days?: No Contact w/someone who lives/traveled outside US past 30 days?: No Exposure to someone with infectious disease in past 14 days?: No Do you have a fever (greater than 100.4 F or 38 C)?: No Have you tested positive for COVID-19?: No Exposed to someone with COVID-19 in past 14 days?: No Do you have a sore throat?: No Do you have a cough?: No Do you have any weakness?: No Do you have any diarrhea?: No Are you experiencing any unusual bleeding?: No Do you have any muscle aches/pain?: No Do you have any abdominal pain?: No Are you experiencing loss of taste or smell?: No Other Medical History Have you received the Pneumonia Vaccine: No <VEL Rubin - Last Filed: 06/12/25 21:47> ROS Obtained: Yes Systems reviewed as appropriate & no additional complaints except as documented Physical Exam <VEL Rubin - Last Filed: 06/12/25 21:47> General General appearance: alert Head Head exam: atraumatic and normal inspection Eye Eye exam: Present normal appearance, PERRL and EOMI ENT ENT exam: Present normal exam, normal oropharynx and mucous membranes moist Neck Neck exam: Present normal inspection, full ROM and trachea midline; Absent lymphadenopathy Chest Chest inspection: Present normal inspection and symmetric chest wall rise Respiratory Respiratory exam: Present normal lung sounds bilaterally Cardiovascular Cardiovascular exam: Present regular rate and +S2 Abdominal Exam Abdominal exam: Present soft and normal bowel sounds; Absent tenderness, guarding or rebound Extremities Exam Extremities exam: Present normal inspection and full ROM Neurological Exam Neurological exam: Present alert and oriented X3 Psychiatric Psychiatric exam: Present normal affect and normal mood Skin Skin exam: Present warm, dry and normal color Lymphatic Lymphatic Findings: no adenopathy Medical Decision Making <VEL Rubin - Last Filed: 06/12/25 21:47> Medical Records Medical records reviewed: Yes I reviewed the patient's medical records. Screening: Per USPSTF and CDC recommendations, given the prevalence of disease in our region, it is our hospital?s policy to screen for HIV and viral Hepatitis for all patients aged 18 and over and those with ongoing risk factors. Kvng Inquiry Pt receiving controlled substance: No Vital Signs: 06/12/25 17:34 06/12/25 19:13 06/12/25 20:35 Temperature 98.6 F 98.7 F Temperature Source Oral Pulse Rate 62 65 Pulse Rate [Right] 72 Respiratory Rate 16 16 16 Blood Pressure 133/82 128/73 Blood Pressure [Right Arm] 100/68 L Blood Pressure Mean [Right Arm] 78 02 Sat by Pulse Oximetry 96 100 Oxygen Delivery Method Room Air Room Air Lab Data Lab results reviewed: Yes I reviewed the patient's lab results. Lab Results 06/12/25 17:42: Urine Color Yellow, Urine Appearance Clear, Urine pH 5.5, Ur Specific [place] 1.025, Urine Protein Trace, Urine Glucose (UA) Negative, Urine Ketones Trace, Urine Blood Negative, Urine Nitrate Negative, Urine Bilirubin 1+ A, Urine Urobilinogen 0.2, Ur Leukocyte Esterase 2+ A, Urine RBC 3-5, Urine WBC 10-20, Ur Squamous Epith Cells 5-10, Ur Renal Epithelial Cell 5-10, Urine Bacteria 3+ 06/12/25 17:50: WBC 5.6, RBC 3.87 L, Hgb 11.9 L, Hct 34.7 L, MCV 89.7, MCH 30.7, MCHC 34.3, RDW 13.2, Plt Count 243, MPV 10.6 H, Neut % (Auto) 50.9, Lymph % (Auto) 37.7, [place] % (Auto) 6.6, Eos % (Auto) 3.7, Baso % (Auto) 0.7, Neut # (Auto) 2.9, Lymph # (Auto) 2.1, [place] # (Auto) 0.4, Eos # (Auto) 0.2, Baso # (Auto) 0.0, PT 11.2, INR 1.01, D-Dimer 0.48, Sodium 135 L, Potassium 4.3, Chloride 100, Carbon Dioxide 28, Anion Gap 11.3, BUN 30 H, Creatinine 1.80 H, Estimated Creat Clear 42, Estimated GFR 29 L, Est GFR ( Amer) 35 L, G lucose 120 H, Calcium 10.0, Magnesium 1.8, Total Bilirubin 1.3, AST 28, ALT 19, Alkaline Phosphatase 94, Troponin I < 0.01, NT-Pro-B Natriuret Pep 115, Total Protein 7.4, Albumin 3.8, Globulin 3.6 H, Albumin/Globulin Ratio 1.1, Procalcitonin 0.092 06/12/25 17:50 06/12/25 17:50 Orders (Tests/Meds): ED MEDICATIONS Discontinued Medications Generic Name Dose Route Start Last Admin Trade Name Zelda PRN Reason Stop Dose Admin Acetaminophen 1,000 mg 06/12/25 17:35 06/12/25 17:50 Acetaminophen 500mg Tab PO 06/12/25 17:36 1,000 mg ONCE ONE Administration Ibuprofen 800 mg 06/12/25 17:35 06/12/25 17:50 Ibuprofen 400 Mg Tablet PO 06/12/25 17:36 800 mg ONCE ONE Administration Lidocaine 1 each 06/12/25 17:35 06/12/25 17:51 Lidocaine 5% Transdermal Patch TD 06/12/25 17:36 1 each ONCE ONE Administration Methocarbamol 500 mg 06/12/25 17:35 06/12/25 17:50 Methocarbamol 500mg Tablet PO 06/12/25 17:36 500 mg ONCE ONE Administration Methocarbamol 1,000 mg 06/12/25 19:57 06/12/25 20:00 Methocarbamol 500mg Tablet PO 06/12/25 19:58 1,000 mg ONCE ONE Administration Ondansetron HCl 4 mg 06/12/25 20:41 06/12/25 20:42 Ondansetron 4mg Odt SL 06/12/25 20:42 4 mg ONCE ONE Administration Trimethoprim/Sulfamethoxazole 1 each 06/12/25 20:31 06/12/25 20:33 Sulfa/Trimethoprim 1 Tablet PO 06/12/25 20:32 1 each ONCE ONE Administration ORDERS Category Date Time Status Chest XR 2 view (NOT portable) [XR chest 2V] Stat Exams 06/12/25 17:35 Completed BNP [NT Pro Brain Natriuretic Pep.] Stat Lab 06/12/25 17:50 Completed CBC w/Auto Diff [Complete Blood Count Auto Diff] Stat Lab 06/12/25 17:50 Completed CMP [Comprehensive Metabolic Panel] Stat Lab 06/12/25 17:50 Completed D-Dimer Stat Lab 06/12/25 17:50 Completed INR [Prothrombin Time INR] Stat Lab 06/12/25 17:50 Completed Magnesium Stat Lab 06/12/25 17:50 Completed Procalcitonin Stat Lab 06/12/25 17:50 Completed Trop I [Troponin I] Stat Lab 06/12/25 17:50 Completed UA [Urinalysis and Microscopic] Stat Lab 06/12/25 17:42 Completed Urine Culture Stat Micro 06/12/25 17:42 Completed Medical Decision Narrative: In summary patient is a 60-year-old female who presents to the emergency department for evaluation of left back pain. Patient is hemodynamically stable upon arrival, afebrile. Physical exam is remarkable for tenderness to palpation in the left upper back medial to the scapula but lateral to the spine. There is no palpable bony deformity. Breath sounds clear and equal bilaterally to the bases without adventitious sounds increased work of breathing or accessory muscle use, cardiovascular's S1-S2 regular rate and rhythm without murmurs gallops rubs or thrills. Abdomen soft nontender no rebound or guarding no rigidity. Bowel sounds normal active. Differential diagnosis includes musculoskeletal strain versus pneumonia versus rib fracture versus ACS versus PE etc. Initial workup will be conducted with hematologic labs twelve-lead EKG plain film chest x-ray urinalysis. Initial interventions include Tylenol ibuprofen Robaxin and Lidoderm patch. Initial workup reviewed by me and her hematologic labs show a white count of 5.6 hemoglobin hematocrit 11.9 and 34.7 with no neutrophilic shift, INR is 1, creatinine is 1.8 GFR is 29 both of which are normal baseline, the remainder of her hematologic labs are nonactionable including an undetectable troponin of less than 0.01. Urinalysis shows trace ketones trace protein 1+ bilirubin 2+ leukocyte esterase and microscopic exam shows white cells red cells and bacteria consistent with urinary tract infection. My informal interpretation of her plain film chest x-ray shows no acute processes prior to radiology read. Please see final read for formal interpretation.. Upon repeat evaluation patient reported improvement in her symptoms. Given this patient is appropriate for discharge with prescription for Robaxin and Bactrim with first dose of Bactrim given here and sent to her pharmacy and close follow-up with her PCP. <Julio Pérez, DO - Last Filed: 06/14/25 20:21> Vital Signs: 06/12/25 17:34 06/12/25 19:13 06/12/25 20:35 Temperature 98.6 F 98.7 F Temperature Source Oral Pulse Rate 62 65 Pulse Rate [Right] 72 Respiratory Rate 16 16 16 Blood Pressure 133/82 128/73 Blood Pressure [Right Arm] 100/68 L Blood Pressure Mean [Right Arm] 78 02 Sat by Pulse Oximetry 96 100 Oxygen Delivery Method Room Air Room Air Lab Data Lab Results 06/12/25 17:42: Urine Color Yellow, Urine Appearance Clear, Urine pH 5.5, Ur Specific [place] 1.025, Urine Protein Trace, Urine Glucose (UA) Negative, Urine Ketones Trace, Urine Blood Negative, Urine Nitrate Negative, Urine Bilirubin 1+ A, Urine Urobilinogen 0.2, Ur Leukocyte Esterase 2+ A, Urine RBC 3-5, Urine WBC 10-20, Ur Squamous Epith Cells 5-10, Ur Renal Epithelial Cell 5-10, Urine Bacteria 3+ 06/12/25 17:50: WBC 5.6, RBC 3.87 L, Hgb 11.9 L, Hct 34.7 L, MCV 89.7, MCH 30.7, MCHC 34.3, RDW 13.2, Plt Count 243, MPV 10.6 H, Neut % (Auto) 50.9, Lymph % (Auto) 37.7, [place] % (Auto) 6.6, Eos % (Auto) 3.7, Baso % (Auto) 0.7, Neut # (Auto) 2.9, Lymph # (Auto) 2.1, [place] # (Auto) 0.4, Eos # (Auto) 0.2, Baso # (Auto) 0.0, PT 11.2, INR 1.01, D-Dimer 0.48, Sodium 135 L, Potassium 4.3, Chloride 100, Carbon Dioxide 28, Anion Gap 11.3, BUN 30 H, Creatinine 1.80 H, Estimated Creat Clear 42, Estimated GFR 29 L, Est GFR ( Amer) 35 L, G lucose 120 H, Calcium 10.0, Magnesium 1.8, Total Bilirubin 1.3, AST 28, ALT 19, Alkaline Phosphatase 94, Troponin I < 0.01, NT-Pro-B Natriuret Pep 115, Total Protein 7.4, Albumin 3.8, Globulin 3.6 H, Albumin/Globulin Ratio 1.1, Procalcitonin 0.092 Orders (Tests/Meds): ED MEDICATIONS Discontinued Medications Generic Name Dose Route Start Last Admin Trade Name Zelda PRN Reason Stop Dose Admin Acetaminophen 1,000 mg 06/12/25 17:35 06/12/25 17:50 Acetaminophen 500mg Tab PO 06/12/25 17:36 1,000 mg ONCE ONE Administration Ibuprofen 800 mg 06/12/25 17:35 06/12/25 17:50 Ibuprofen 400 Mg Tablet PO 06/12/25 17:36 800 mg ONCE ONE Administration Lidocaine 1 each 06/12/25 17:35 06/12/25 17:51 Lidocaine 5% Transdermal Patch TD 06/12/25 17:36 1 each ONCE ONE Administration Methocarbamol 500 mg 06/12/25 17:35 06/12/25 17:50 Methocarbamol 500mg Tablet PO 06/12/25 17:36 500 mg ONCE ONE Administration Methocarbamol 1,000 mg 06/12/25 19:57 06/12/25 20:00 Methocarbamol 500mg Tablet PO 06/12/25 19:58 1,000 mg ONCE ONE Administration Ondansetron HCl 4 mg 06/12/25 20:41 06/12/25 20:42 Ondansetron 4mg Odt SL 06/12/25 20:42 4 mg ONCE ONE Administration Trimethoprim/Sulfamethoxazole 1 each 06/12/25 20:31 06/12/25 20:33 Sulfa/Trimethoprim 1 Tablet PO 06/12/25 20:32 1 each ONCE ONE Administration ORDERS Category Date Time Status Chest XR 2 view (NOT portable) [XR chest 2V] Stat Exams 06/12/25 17:35 Completed BNP [NT Pro Brain Natriuretic Pep.] Stat Lab 06/12/25 17:50 Completed CBC w/Auto Diff [Complete Blood Count Auto Diff] Stat Lab 06/12/25 17:50 Completed CMP [Comprehensive Metabolic Panel] Stat Lab 06/12/25 17:50 Completed D-Dimer Stat Lab 06/12/25 17:50 Completed INR [Prothrombin Time INR] Stat Lab 06/12/25 17:50 Completed Magnesium Stat Lab 06/12/25 17:50 Completed Procalcitonin Stat Lab 06/12/25 17:50 Completed Trop I [Troponin I] Stat Lab 06/12/25 17:50 Completed UA [Urinalysis and Microscopic] Stat Lab 06/12/25 17:42 Completed Urine Culture Stat Micro 06/12/25 17:42 Completed ECG Data Tracing #1: I reviewed this ECG and interpreted as documented below: EKG personally interpreted by me demonstrates normal sinus rhythm with a rate of 67 bpm, normal axis, no MS prolongation, narrow QRS, no QTc prolongation. No ST elevation or depression. No overt signs of ischemia or arrhythmia. Medical Decision Narrative: In summary patient is a 60-year-old female who presents to the emergency department for evaluation of left back pain. Patient is hemodynamically stable upon arrival, afebrile. Physical exam is remarkable for tenderness to palpation in the left upper back medial to the scapula but lateral to the spine. There is no palpable bony deformity. Breath sounds clear and equal bilaterally to the bases without adventitious sounds increased work of breathing or accessory muscle use, cardiovascular's S1-S2 regular rate and rhythm without murmurs gallops rubs or thrills. Abdomen soft nontender no rebound or guarding no rigidity. Bowel sounds normal active. Differential diagnosis includes musculoskeletal strain versus pneumonia versus rib fracture versus ACS versus PE etc. Initial workup will be conducted with hematologic labs twelve-lead EKG plain film chest x-ray urinalysis. Initial interventions include Tylenol ibuprofen Robaxin and Lidoderm patch. Initial workup reviewed by me and her hematologic labs show a white count of 5.6 hemoglobin hematocrit 11.9 and 34.7 with no neutrophilic shift, INR is 1, creatinine is 1.8 GFR is 29 both of which are normal baseline, the remainder of her hematologic labs are nonactionable including an undetectable troponin of less than 0.01. Urinalysis shows trace ketones trace protein 1+ bilirubin 2+ leukocyte esterase and microscopic exam shows white cells red cells and bacteria consistent with urinary tract infection. My informal interpretation of her plain film chest x-ray shows no acute processes prior to radiology read. Please see final read for formal interpretation.. Upon repeat evaluation patient reported improvement in her symptoms. Given this patient is appropriate for discharge with prescription for Robaxin and Bactrim with first dose of Bactrim given here and sent to her pharmacy and close follow-up with her PCP. Attending attestation: I was consulted by the MO, and we discussed the complexity of problems being addressed. I approved the treatment and management plan for this patient's care in the emergency department, thus performing a substantive portion of the medical decision making. I personally obtained history from this patient as well. She reports left sided thoracic back pain, just underneath the scapula. Specifically no midline C, T, or L spine tenderness on examination. No radiating pain. NO radiculopathy. No saddle anesthesia. No history of IVDU. No urinary retention/incontinence. No traumatic injury to the back. No crepitus of the ribs on examination. She does however have ropy muscles about the left scapula on examination. Pain had been going on for 3 days. Cardiac workup was unrevealing. CXR interpreted by me demonstrated no posterior rib fractures. Discussed that this was likely a muscle spasm with the patient. Advised to take 1500 mg of Robaxin TID for the next 7 days and to return to the ER if she has any new or worsening, or persistent symptoms. She acknowledged understanding. Julio Pérez, DO Critical Care <VEL Rubin - Last Filed: 06/12/25 21:47> Critical Care Time Critical Care Time: No
[2025-06-12 17:34] VITALS: BP 100/68; PULSE 72; RESP 16; TEMP 37; O2SAT 96; BMI 34.0
--- OUTSIDE RECORDS SUMMARY | 2025-06-12 17:34 | XMS_ITS | Continuity of Care Document ---
Author Organization [place] - JayReelio., [facility] Address [address] [place] [address] Assessment No assessment recorded. Plan of Treatment Reminders Order Date Submit Date Provider Last Modified By Organization Details Last Modified Time Details Appointments None recorded. Lab HbA1c (hemoglobin A1c), blood [email or web address] [place] [address], [address] Dwayne Rodriguez [facility], [place], [address], 09:36:15 Referral cardiothora cic vascular surgeon referral - first available appt 2024 025 [email or web address] Paresh Sandy MD, [address] [facility], [place], [address], 11:37:25 Procedures None recorded. Surgeries None recorded. Imaging None recorded. Medication Orders Medrol (Zhen) 4 mg tablets in a dose pack 2024 025 [facility], [address] [place] [address], [id number], 5 13:14:27 ketorolac 60 mg/2 mL intramuscul ar solution [email or web address] [place] [address] Pharmacy, [address] [place] [address], [id number], 5 14:44:54 Lyrica 200 mg capsule 2024 025 GERARDO Angela [facility], [address] [address] Julio César [place], [id number], 16:17:10 Patient TargetsNo targets recorded. Patient Instructions Encounter Date Encounter Id Patient Instructions Last Modified By Organization Details Last Modified Time 04/19/2025 [id number] varicose veins: care instructions [email or web address] Not available 04/19/2025 09:27:25 learning about type 2 diabetes [email or web address] Not available 04/19/2025 14:48:52 type 2 diabetes: care instructions [email or web address] Not available 04/19/2025 14:48:52 Reason for Referral Cardiothoracic Vascular Surg juan Referral for Varicose veins of lower extremity first available appt Referring Physician: Dora Moran, Family Medicine, Encounter Date: 04/19/2025 Results Created Date Observation Date Name Description Value Unit Range Abnormal Flag Note LastModifiedBy Organization Detail LastModifiedTime 04/19/2004/19/2025 HbA1c (hemo globi n A1c), blood HbA1c 6.6 % Not Available [address], [place], [address], 04/19/2025 09:34:20 Result Notes None recorded. Problems Name Problem SNOMED Code Status Onset Date Resolution Date Notes Provider Name and Address Organization Details Recorded Time Pain of right shoulder joint 881157163374 35362 Active 2023 VEL Mendez [address] [place] [address], 94[address] 8, [employer] 4 14:15:53 Pain of right upper arm 138364242861 103 Active 2023 VEL Mendez [address] [place] [address], 29570[address]700 8, [employer] 4 14:15:58 Hyperlipi demia 58979591 Active 2023 VEL Mendez [address] [place] [address], 00981-581 8, [employer] 10:16:49 Osteoarth ritis 015495218 Active 2023 VEL Mendez [address] [place] [address], 37041[address]472 8, [employer] 4 10:17:08 Vitamin D deficienc y 48443508 Active 2023 VEL Mendez [address] [place] [address], 90637[address]661 8, [employer] 4 10:17:05 Hypothyro idism 92769997 Active 2023 VEL Mendez [address] [place] [address], 80616-860 8, [employer] 4 10:16:44 Essential hypertens ion 07071354 Active 2023 VEL Mendez [address] [place] [address], 83583-678 8, [employer] 4 10:16:37 Neuropath y due to type 2 diabetes mellitus 315870335626 106 Active 2023 VEL Mendez [address] [place] [address], 26288[address]468 8, [employer] 4 10:16:56 Gastroeso phageal reflux disease 715359977 Active 2023 VEL Mendez [address] [place] [address], 25255-081 8, [employer] 4 10:16:40 Allergic rhinitis 55583304 Active 2023 VEL Mendez [address] [place] [address], 55432[address]152 8, [employer] 4 10:16:29 Acute sinusitis 39420596 Active 2023 VEL Mendez [address] [place] [address], 44806-509 8, [employer] 14:27:37 Gilbert's syndrome 07697738 Active 2023 bilirubin chronical ly elevated VEL Mendez [address] [place] [address], 60[address]932 8, [place] [employer] 4 10:22:43 Pain in bilateral legs 279744105701 83943 Active 2023 VEL Mendez [address] [place] [address], 66320-891 8, [place] [employer] 4 17:42:04 Anxiety 02231820 Active 2023 VEL Mendez [address] [place] [address], 35720-264 8, [place] [employer] 4 14:56:54 Spasm of back muscles 482747070 Active 2024 VEL Mendez [address] [place] [address], 51349-959 8, [employer] 5 14:33:30 Pruritic rash 88043279 Active 2024 VEL Mendez [address] [place] [address], 17054-956 8, [employer] 5 14:34:57 Nausea and vomiting 16735964 Active 2024 VEL Mendez [address] [place] [address], 73090-929 8, [employer] 5 16:14:39 Chronic kidney disease 068300631 Active 2024 VEL Mendez [address] [place] [address], 00568-278 8, [employer] 5 16:45:50 Disorder of vitamin B12 525086048 Active 2024 VEL Mendez [address] [place] [address], 83615-473 8, [employer] 5 16:45:56 Type 2 diabetes mellitus without complicat ion 165854596 Active 2024 VEL Mendez [address] [place] [address], 73249-149 8, [employer] 5 12:20:36 Type 2 diabetes mellitus 53991136 Active 2024 VEL Mendez [address] [place] [address], 65420-408 8, [employer] 5 09:17:53 Varicose veins of lower extremity 67720308 Active 2024 VEL Mendez [address] [place] [address], 13688-498 8, [employer] 5 09:22:25 Tendernes s of right temporoma ndibular joint 729055445500 28387 Active 2024 VEL Mendez [address] [place] [address], 15926-600 8, [employer] 5 14:44:29 Chronic low back pain 975013377 Active 2024 VEL Mendez [address] [place] [address], 19546-423 8, [employer] 5 14:48:39 Bacterial sinusitis 375976868 Active 2024 VEL Mendez [address] [place] [address], 94814-227 8, [employer] 5 16:12:12 Problem Notes None recorded. Procedures Surgical History Date Name Laterality Status Provider Name and Address Organization Details Recorded Time 5 Diabetic Foot Screen completed VEL Mendez [address] [place] [address], [address], [employer] 01/05/2025 10:05:07 4 Diabetic Foot Screen completed VEL Mendez [address] [place] [address], [address], [employer] 11/13/2024 17:45:24 Hernia Repair completed [facility] 10/03/2024 13:42:19 Gallbladder Surgery completed [facility] 10/03/2024 13:42:19 Thyroid Surgery completed [facility] 10/03/2024 13:42:19 Caesarean Section completed [facility] [email or web address], [facility]. 10/03/2024 13:50:49 Imaging Results None recorded. Procedure Notes None recorded. Medical Equipment None Reported. Allergies No known drug allergies Medications Name Sig Start Date Stop Date Status Note LastModified by Organization Details LastModified Time celecoxib 200 mg capsule 10/03 completed Not Available Not Available Not Available amoxicillin 500 mg capsule 10/02 completed Not Available Not Available Not Available atorvastati n 40 mg tablet 10/02 completed Not Available Not Available Not Available terconazole 0.4 % vaginal cream 10/03 completed Not Available Not Available Not Available atorvastati n 80 mg tablet TAKE ONE TABLET BY MOUTH AT BEDTIME active Not Available Not Available No t Available azithromyci n 250 mg tablet TAKE 2 TABLETS BY MOUTH ON DAY 1, THEN TAKE 1 TABLET DAILY ON DAYS 2 THROUGH 5 active Not Available Not Available No t Available fluconazole 150 mg tablet 10/03 completed Not Available Not Available Not Available clarithromy jorge a 500 mg tablet 10/03 completed Not Available Not Available Not Available glipizide ER 10 mg tablet, extended release 24 hr TAKE ONE TABLET BY MOUTH ONCE A DAY active Not Available Not Available No t Available meloxicam 15 mg tablet Take 1 tablet every day by oral route as directed for 90 days, for ARTHRITIS . 01/04 completed Not Available Not Available Not Available lisinopril 20 mg tablet active Not Available Not Available Not Available famotidine 40 mg tablet 10/03 completed Not Available Not Available Not Available prednisone 20 mg tablet Take 1 tablet twice a day by oral route as directed for 5 days. 02/09 completed Not Available Not Available Not Available metoprolol succinate ER 100 mg tablet,exte nded release 24 hr TAKE ONE TABLET BY MOUTH ONCE A DAY active Not Available Not Available No t Available cyanocobala min (vit B-12) 1,000 mcg tablet Take 1 tablet by oral route for 90 days. 2024 active Not Available Not Available Not Avai lable tramadol 50 mg tablet Take 1 tablet every 6 hours by oral route as directed for 7 days. active Not Available Not Available No t Available triamcinolo ne acetonide 0.1 % topical cream APPLY A THIN LAYER TO THE AFFECTED AREA(S) BY TOPICAL ROUTE 2 TIMES PER DAY active Not Available Not Available No t Available ondansetron 8 mg disintegrat ing tablet DISSOLVE 1 TABLET ON THE TONGUE THREE TIMES DAILY active Not Available Not Available No t Available pramipexole 0.5 mg tablet TAKE ONE TABLET BY MOUTH 3 TIMES A DAY FOR LEG PAIN active Not Available Not Available No t Available amoxicillin 875 mg tablet 10/02 completed Not Available Not Available Not Available famotidine 20 mg tablet Take 1 tablet twice a day by oral route as directed for 90 days, for HEARTBURN . 01/04 completed Not Available Not Available Not Available lorazepam 0.5 mg tablet 10/03 completed Not Available Not Available Not Available benzonatate 100 mg capsule 10/03 completed Not Available Not Available Not Available gemfibrozil 600 mg tablet TAKE ONE TABLET BY MOUTH 2 TIMES A DAY 2024 active Not Available Not Available Not Avai lable cephalexin 500 mg capsule 10/03 completed Not Available Not Available Not Available cyanocobala min (vit B-12) 1,000 mcg/mL injection solution 10/03 completed Not Available Not Available Not Available levothyroxi ne 125 mcg tablet TAKE ONE TABLET BY MOUTH ONCE A DAY active Not Available Not Available No t Available triamcinolo ne acetonide 0.1 % topical ointment active Not Available Not Available Not Available lisinopril 10 mg tablet 10/03 completed Not Available Not Available Not Available lansoprazol e 30 mg capsule,del ayed release Take 1 capsule every day by oral route as directed for 90 days, for HEARTBURN . 01/04 completed Not Available Not Available Not Available BD Luer-Jose Syringe 3 mL 25 gauge x 1 10/02 completed Not Available Not Available Not Available nitroglycer in 0.4 mg sublingual tablet active Not Available Not Available Not Available cyanocobala min (vit B-12) 1,000 mcg sublingual tablet TAKE ONE TABLET BY MOUTH ONCE A DAY 2024 active Not Available Not Available Not Avai lable lisinopril 5 mg tablet 10/03 completed Not Available Not Available Not Available furosemide 20 mg tablet TAKE ONE TABLET BY MOUTH ONCE A DAY active Not Available Not Available No t Available ergocalcife rol (vitamin D2) 1,250 mcg (50,000 unit) capsule TAKE ONE CAPSULE BY MOUTH ONCE WEEKLY active Not Available Not Available No t Available BD Tuberculin Syringe 1 mL 25 gauge x 5/8 10/02 completed Not Available Not Available Not Available diazepam 10 mg tablet Take 1 tablet every day by oral route as directed for 1 day. active Not Available Not Available No t Available methylpredn isolone 4 mg tablets in a dose pack TAKE DIRECTED ON PACK FOR 6 DAYS active Not Available Not Available No t Available ketorolac 60 mg/2 mL intramuscul ar solution Inject 2 mL by intramusc ular route. 2024 active Not Available Not Available Not Avai lable ondansetron 4 mg disintegrat ing tablet 10/03 completed Not Available Not Available Not Available cefdinir 300 mg capsule TAKE 1 CAPSULE BY MOUTH TWICE DAILY FOR 5 DAYS 04/19 completed Not Available Not Available Not Available fluticasone propionate 50 mcg/actuati on nasal spray,suspe nsion USE 1 SPRAY IN EACH NOSTRIL ONCE A DAY active Not Available Not Available No t Available diazepam 5 mg tablet Take 1 tablet every day by oral route as directed for 1 day. 01/04 completed Not Available Not Available Not Available amoxicillin 875 mg-potassiu m clavulanate 125 mg tablet Take 1 tablet every 12 hours by oral route as directed for 10 days. 11/13 completed Not Available Not Available Not Available cholecalcif raul (vitamin D3) 25 mcg (1,000 unit) capsule Take 1 capsule every day by oral route as directed for 90 days, for VITAMIN D DEFICIENC Y. 2024 active Not Available Not Available Not Avai lable pregabalin 25 mg capsule 10/03 completed Not Available Not Available Not Available pregabalin 50 mg capsule 10/03 completed Not Available Not Available Not Available pregabalin 75 mg capsule Take 1 capsule twice a day by oral route as directed for 90 days, for NERVE PAIN. active Not Available Not Available No t Available pregabalin 150 mg capsule TAKE 1 CAPSULE BY MOUTH 3 TIMES A DAY FOR LEG PAIN active Not Available Not Available No t Available pregabalin 200 mg capsule TAKE 1 CAPSULE BY MOUTH 3 TIMES A DAY active Not Available Not Available No t Available valsartan 320 mg-hydrochl orothiazide 25 mg tablet TAKE ONE TABLET BY MOUTH ONCE A DAY FOR BLOOD PRESSURE active Not Available Not Available No t Available cholecalcif raul (vitamin D3) 25 mcg (1,000 unit) tablet TAKE ONE TABLET BY MOUTH ONCE A DAY active Not Available Not Available No t Available Trulicity 1.5 mg/0.5 mL subcutaneou s pen injector 10/03 completed Not Available Not Available Not Available Vraylar 1.5 mg capsule 10/03 completed Not Available Not Available Not Available Ozempic 1 mg/dose (4 mg/3 mL) subcutaneou s pen injector 10/02 completed Not Available Not Available Not Available Kerendia 20 mg tablet TAKE ONE TABLET BY MOUTH ONCE A DAY active Not Available Not Available No t Available Ozempic 2 mg/dose (8 mg/3 mL) subcutaneou s pen injector Inject 2 mg every week by subcutane ous route as directed for 90 days, for DIABETES. 01/04 completed Not Available Not Available Not Available Mounjaro 7.5 mg/0.5 mL subcutaneou s pen injector inject 0.5 ML SUBCUTANE OUSLY ONCE WEEKLY 04/24 completed Not Available Not Available Not Available Mounjaro 5 mg/0.5 mL subcutaneou s pen injector Inject 0.5 mL every week by subcutane ous route for 28 days. 04/24 completed Not Available Not Available Not Available Mounjaro 15 mg/0.5 mL subcutaneou s pen injector INJECT 0.5 ML SUBCUTANE OUSLY ONCE WEEKLY active Not Available Not Available No t Available Mounjaro 10 mg/0.5 mL subcutaneou s pen injector inject 0.5 ML SUBCUTANE OUSLY ONCE WEEKLY 04/24 completed Not Available Not Available Not Available Mounjaro 12.5 mg/0.5 mL subcutaneou s pen injector INJECT 1 PREFILLED SYRINGE SUBCUTANE OUSLY ONCE WEEKLY FOR 28 DAYS active Not Available Not Available No t Available Mounjaro 2.5 mg/0.5 mL subcutaneou s pen injector Inject 0.5 mL every week by subcutane ous route for 28 days. 01/29 completed Not Available Not Available Not Available Ozempic 0.25 mg or 0.5 mg (2 mg/3 mL) subcutaneou s pen injector 10/02 completed Not Available Not Available Not Available Voquezna 20 mg tablet Take 1 tablet every day by oral route as directed for 90 days, for heartburn . 2024 active Not Available Not Available Not Avai lable Vitals Date Recorded Body height Body mass index (BMI) Body weight Heart rate Oxygen saturation Oxygen saturation in Arterial blood by Pulse oximetry Body temperature Systolic And Diastolic Provider Name and Address Organization Details Last Updated DateTime 5 152.4 cm 37 kg/m2 50667.3 6 g 70 /min 97 % 97 % 98.3 [degF] 112/70 mm[Hg] Alma Rosa Griffin [email or web address] 5 08:44:44 Social History Question Answer Notes LastModified by Organizat ion Details LastModified Time Tobacco Smoking Status Never Smoker Rut [email or web address] [email or web address] 10/03/2024 13:47:55 Do You Have An Advance Directive? No Information not available 10/03/2024 Is Your Home Air Conditioned? Yes Information not available 10/03/2024 Are You Blind Or Do You Have Difficulty Seeing? No Information not available 10/03/2024 What Is Your Level Of Caffeine Consumption? Occasional Information not available 10/03/2024 Have You Been To An Area Known To Be High Risk For COVID-19? No Information not available 10/03/2024 Are You Deaf Or Do You Have Serious Difficulty Hearing? No Information not available 10/03/2024 What Type Of Diet Are You Following? REGULAR Information not available 10/03/2024 What Is The Highest Grade Or Level Of School You Have Completed Or The Highest Degree You Have Received? [id number] Information not available 10/03/2024 Have There Been Any Changes To Your Family Or Social Situation? No Information no t available 10/03/2024 Which Of Your Hands Is Dominant? Right Information not available 10/03/2024 Do You Have A Medical Power Of Gas And Oil Checker? No Information not available 10/03/2024 What Was The Date Of Your Most Recent Tobacco Screening? 04/19/2025 [email or web address] Information not available 04/19/2025 Do You Have Any Pets? Yes Information not available 10/03/2024 What Is Your Relationship Status? Information not available 10/03/2024 Have You Repeated Any Grades? No Information not available 10/03/2024 Do You Use Your Seat Belt Or Car Seat Routinely? Yes Information not available 10/03/2024 Do You Have Smoke And Carbon Monoxide Detectors In Your Home? Yes Information not available 10/03/2024 Are You Passively Exposed To Smoke? No Information no t available 10/03/2024 Are There Any Smokers In Your House? No Information not available 10/03/2024 Do You Participate In Social Media? Yes Information not available 10/03/2024 Do You Use Sunscreen Routinely? Yes Information not available 10/03/2024 Has Tobacco Cessation Counseling Been Provided? No Information not available 10/03/2024 Have You Recently Traveled Abroad? No Information not available 10/03/2024 Do You Have Difficulty Walking Or Climbing Stairs? Yes Information not available 10/03/2024 Are You Currently In School? No Information not available 10/03/2024 Do You Have Any Dietary Restrictions? No Information not available 10/03/2024 Sex: Female Functional Status Question Answer Note LastModified by Organizat ion Details LastModified Time Do you use any illicit or recreational drugs? No Information not available 10/03/2024 Do you or have you ever used any other forms of tobacco or nicotine? No Information not available 10/03/2024 What is your level of alcohol consumption? None Information not available 10/03/2024 Are you currently employed? No Information not available 10/03/2024 Do you have transportation difficulties? No Information not available 10/03/2024 Are you able to walk? YESWOREST Information not available 10/03/2024 Do you have difficulty doing errands alone? No Information not available 10/03/2024 Are you able to care for yourself independently? Yes Information not available 10/03/2024 Do you have difficulty dressing, bathing, grooming, or toileting? No Information not available 10/03/2024 What is your exercise level? None Information not available 10/03/2024 Mental Status Question Answer Note LastModified by Organizat ion Details LastModified Time Do you feel stressed (tense, restless, nervous, or anxious, or unable to sleep at night)? [id number] Information not available 10/03/2024 Do you have difficulty concentrating, remembering or making decisions? No Information no t available 10/03/2024 Family History Relationship Description Onset Age of this Age Resolved Age Notes LastModified by Organization Details LastModified Time Mother Hypercholest erolemia Not available 2023 13:42:15 Mother Asthma Not available 13:42:15 Mother Hypertensive disorder Not available 2023 13:42:15 Unspecified Relation Alzheimer's disease Not available 2023 13:42:15 Father Hypercholest erolemia Not available 2023 13:42:16 Father Asthma Not available 13:42:16 Father Anxiety disorder Not available 2023 13:42:16 Father Hypertensive disorder Not available 2023 13:42:16 Medical History Condition Response Allergies (Food, seasonal, environmental ) Y Coronary Artery Disease N Other N Gout N Blood Diseases N Kidney Stones N Hyperthyroidism N Blood Transfusion N Breast Cancer N Emergency room visit since last appointm ent. N Lung Disease N COPD N Depression N Dermatologic Disorders N Hypothyroidism N Defects or Inherited Disease N Developmental or Behavioral Disorders N Breast Problem N Difficulty Swallowing N Anesthesia Complications N History of STI N Meniere's disease N Anxiety Disorder Y Muscle, Joint, or Bone Problems N Autoimmune disease N Vision or Eye Problems Y Arthritis Y Polyps N Infertility N Mental Disorder N Congenital Anomalies N Acid Reflux (GERD) Y Cancer N Stroke N Neurologic/Epilepsy N Endometriosis N Bladder or Kidney Problems N High Cholesterol Y Liver Disease Y Psychiatric/Mental Health Condition N Organ Transplant N Dialysis N Schizophrenia N Fibromyalgia N Headaches N Kidney Disease N Allergies/Hayfever N Heart Problems N Ear or Hearing Problems N Hospitalizations N Learning Disorder N Artificial Joints N Thyroid Problems Y GI Problems N Acne N ADD/ADHD N Eating Disorder N Anemia N Constipation N Mental Illness N Diabetes Y Ovarian Cancer N Bedwetting N Hepatitis/Liver Disease N Tuberculosis N Eczema N Abuse/Domestic Violence N Diverticulitis N Asthma Y Trauma/Violence N Substance Abuse N Reflux/GERD N Depression/ depression N Hepatitis N Heart Disease Y Pulmonary Embolism N Tourette Syndrome N Chronic Ear Infections N Pre-Eclampsia N Hypertension Y Chicken Pox N Autism Spectrum Disorder (ASD) N Osteoporosis N Thrombophilias N Gynecological History Statement/Question Response Menses Monthly N If Post Menopausal, Age at Menopause 59 Date of Last Pap Smear Most Recent Mammogram Obstetrics History GPAL:G 10 P 10 0 0 10 Type Value Multiple Births 0 Full Term 10 Induced 0 Spontaneous 0 Premature 0 Living 10 Ectopics 0 Total 10 Past Encounters Encounter ID Performer Location Encounter Start Date Encounter Closed Date Diagnosis/Indication Diagnosis SNOMED-CT Code Diagnosis ICD10 Code Diagnosis Note [id number] VEL Mendez [address] [place] [address] 04/19/2025 08:28:01 04/19/2025 09:57:02 Varicose veins of lower extremity 65652270 I83.893 Neuropathy due to type 2 diabetes mellitus 8161708312 79936 E11.40 Tenderness of right temporomandibular joint 4480004086 1327274 M26.621 Chronic low back pain 27 6872793 M54.41 M54.42 G89.29 Type 2 richard betes mellitus 09599665 E11.9 Health Concerns Section Related Observation LastModified by Organization Detai ls LastModified Time None Recorded Concern Status LastModified by Organization Details LastModified Time None Recorded Payers Encounter Date Sequence Insurance Name Policy Number Policy Kirk Covered Member ID Kirk Member ID Guarantor Name 04/19/2025 1 [facility] (MEDICAID HMO) Marlene Feeback [id number] Marlene Feeback OBGyn Episode No OBEpisode recorded.
--- OUTSIDE RECORDS SUMMARY | 2025-06-12 17:34 | XMS_ITS | Data Portability ---
Author Organization [facility] Address [address] [place] [address] Assessment No assessment recorded. Plan of Treatment Reminders Order Date Submit Date Provider Last Modified By Organization Details Last Modified Time Details Appointments None recorded. Lab TSH + free T4, serum 2022 023 GERARDO [facility], [address], [place] [address], [place], [address], 3 08:10:57 HbA1c (hemoglobin A1c), blood 2022 023 GERARDO [facility], [address], [place], [place], [address], 3 09:07:39 CMP, serum or plasma 2022 023 GERARDO [facility], [address], [place], [place], [address], 3 09:07:38 CBC w/ auto diff 2022 023 GERARDO [facility], [address], [place], [place], [address], 3 09:07:37 albumin/cre atinine, mass ratio, urine 2022 023 GERARDO [facility], [address], [place], [place], [address], 3 09:07:39 vitamin D, 25-hydroxy, total, serum 2022 023 GERARDO [facility], [address], [place], [place], [address], 3 09:07:39 lipid panel, serum 2022 023 GERARDO [facility], [address], [place], [place], [address], 3 09:07:38 TSH + free T4, serum 2022 023 ELLSWORTH [facility], [address], [place], [place], [address], 3 09:07:37 Referral orthopedic surgeon referral 2022 023 [facility], [address] [place] [address] [address], [place], [address], 3 10:36:38 gastroenter ologist referral 2022 023 franklin Espino MD, [address] [place] [address] , [place], [address], 3 15:10:00 Procedures None recorded. Surgeries None recorded. Imaging electrocard iogram [address] [facility], [address] [facility] [address], [place], [address], 4 12:01:58 XR, knee, 3 view 2022 023 [facility] ([facility]), [address] [place] [address] [address], [place], [address], 3 16:08:42 Medication Orders Jardiance [address] [facility], [address] [facility], [place], [id number], 4 09:23:29 Trulicity 1.5 mg/0.5 mL subcutaneou s pen injector 2022 023 [facility], [facility] [address], [place], [id number], 4 09:24:58 diclofenac 1 % topical gel 2022 023 [facility], [facility] [place] [address] [address], [place], [id number], 4 09:22:52 Trulicity 0.75 mg/0.5 mL subcutaneou s pen injector 2022 023 [facility], [address] [place] [address] S, [place], [id number], 3 09:50:56 Jardiance 10 mg tablet 2022 023 [facility], [facility] [place] [address] [address], [place], [id number], 4 09:23:29 amoxicillin 500 mg capsule 2022 023 [facility], [address] [place] [address] S, [place], [id number], 4 09:12:45 esomeprazol e magnesium 40 mg capsule,del ayed release 2022 023 [facility], [facility] [place] [address] [address], [place], [id number], 4 09:23:10 triamcinolo ne acetonide 0.1 % topical cream 2022 023 [facility], [facility] [place] [address] [address], [place], [id number], 09:25:30 Patient TargetsNo targets recorded. 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 Acid reflux Referring Physician: Rach Morris [facility], Encounter Date: 02/19/2023 Orthopedic Surgeon Referral for Pain of left knee joint Referring Physician: Rach Morris [facility], Encounter Date: 2023 Results Created Date Observation Date Name Description Value Unit Range Abnormal Flag Note LastModifiedBy Organization Detail LastModifiedTime 02/20/2002/20/2023 TSH+F REE T4 TSH 0.796 uIU/m L 0.450- 4.500 Not Available [facility] ([facility]) [address] [place], [address], 02/20/2023 09:07:37 02/20/2002/20/2023 TSH+F REE T4 T4,free(dire ct) 1.83 NG/dL 0.82-1 .77 above high normal Not Available [facility] ([facility]) [address] [place], [address], 02/20/2023 09:07:37 02/20/2002/20/2023 CBC WITH DIFFE RENTI AL/PL ATELE T WBC 5.6 x10e3 /uL 3.4-10 .8 Not Available [facility] ([facility]) [address] [place], [address], 02/20/2023 09:07:37 02/20/20 23 02/20/2023 CBC WITH DIFFE RENTI AL/PL ATELE T RBC 4.52 x10e6 /uL 3.77-5 .28 Not Available [facility] ([facility]) [address] [facility], [place], [address], 02/20/2023 09:07:37 02/20/20 23 02/20/2023 CBC WITH DIFFE RENTI AL/PL ATELE T hemoglobin 13.1 g/dL 11.1-1 5.9 Not Available [facility] ([facility]) [address] [facility], [place], [address], 02/20/2023 09:07:37 02/20/20 23 02/20/2023 CBC WITH DIFFE RENTI AL/PL ATELE T hematocrit 39.8 % 34.0-4 6.6 Not Available [facility] ([facility]) [address] [facility], [place], [address], 02/20/2023 09:07:37 02/20/20 23 02/20/2023 CBC WITH DIFFE RENTI AL/PL ATELE T MCV 88 fL 79-97 Not Available [facility] ([facility]) [address] [facility], [place], [address], 02/20/2023 09:07:37 02/20/20 23 02/20/2023 CBC WITH DIFFE RENTI AL/PL ATELE T MCH 29.0 pg 26.6-3 3.0 Not Available [facility] ([facility]) [address] [place], [address], 02/20/2023 09:07:37 02/20/2002/20/2023 CBC WITH DIFFE RENTI AL/PL ATELE T MCHC 32.9 g/dL 31.5-3 5.7 Not Available [facility] ([facility]) [address] [place], [address], 02/20/2023 09:07:37 02/20/20 23 02/20/2023 CBC WITH DIFFE RENTI AL/PL ATELE T RDW 13.6 % 11.7-1 5.4 Not Available [facility] ([facility]) [address], [place], [address], 02/20/2023 09:07:37 02/20/20 23 02/20/2023 CBC WITH DIFFE RENTI AL/PL ATELE T platelets 170 x10e3 /uL 150-45 0 Not Available [facility] ([facility]) [address] [facility], [place], [address], 02/20/2023 09:07:37 02/20/20 23 02/20/2023 CBC WITH DIFFE RENTI AL/PL ATELE T neutrophils 56 % not estab. Not Available [facility] ([facility]) [address] [facility], [place], [address], 02/20/2023 09:07:37 02/20/20 23 02/20/2023 CBC WITH DIFFE RENTI AL/PL ATELE T lymphs 32 % not estab. Not Available [facility] ([facility]) [address] [facility], [place], [address], 02/20/2023 09:07:37 02/20/20 23 02/20/2023 CBC WITH DIFFE RENTI AL/PL ATELE T monocytes 5 % not estab. Not Available [facility] ([facility]) [address] [facility], [place], [address], 02/20/2023 09:07:37 02/20/20 23 02/20/2023 CBC WITH DIFFE RENTI AL/PL ATELE T eos 5 % not estab. Not Available [facility] ([facility]) [address] [facility], [place], [address], 02/20/2023 09:07:37 02/20/20 23 02/20/2023 CBC WITH DIFFE RENTI AL/PL ATELE T basos 1 % not estab. Not Available [facility] ([facility]) [address] [facility], [place], [address], 02/20/2023 09:07:37 04/07/20 23 02/20/2023 CBC WITH DIFFE RENTI AL/PL ATELE T immature cells ELECTRICAL ACCESSORIES ASSEMBLER Not Available [facility] ([facility]) [address] [place], [address], 02/20/2023 09:07:37 02/20/20 23 02/20/2023 CBC WITH DIFFE RENTI AL/PL ATELE T neutrophils (absolute) 3.1 x10e3 /uL 1.4-7. 0 Not Available [facility] ([facility]) [address] [place], [address], 02/20/2023 09:07:37 02/20/20 23 02/20/2023 CBC WITH DIFFE RENTI AL/PL ATELE T lymphs (absolute) 1.8 x10e3 /uL 0.7-3. 1 Not Available [facility] ([facility]) [address] [place], [address], 02/20/2023 09:07:37 02/20/20 23 02/20/2023 CBC WITH DIFFE RENTI AL/PL ATELE T monocytes(ab solute) 0.3 x10e3 /uL 0.1-0. 9 Not Available [facility] ([facility]) [address] [place], [address], 02/20/2023 09:07:37 02/20/2002/20/2023 CBC WITH DIFFE RENTI AL/PL ATELE T eos (absolute) 0.3 x10e3 /uL 0.0-0. 4 Not Available [facility] ([facility]) [address] [place], [address], 02/20/2023 09:07:37 02/20/20 23 02/20/2023 CBC WITH DIFFE RENTI AL/PL ATELE T baso (absolute) 0.0 x10e3 /uL 0.0-0. 2 Not Available [facility] ([facility]) [address] [place], [address], 02/20/2023 09:07:37 02/20/20 23 02/20/2023 CBC WITH DIFFE RENTI AL/PL ATELE T immature granulocytes 1 % not estab. Not Available [facility] ([facility]) [address] [facility], [place], [address], 02/20/2023 09:07:37 02/20/20 23 02/20/2023 CBC WITH DIFFE RENTI AL/PL ATELE T immature grans (abs) 0.1 x10e3 /uL 0.0-0. 1 Not Available [facility] ([facility]) [address] [facility], [place], [address], 02/20/2023 09:07:37 02/20/20 23 02/20/2023 CBC WITH DIFFE RENTI AL/PL ATELE T NRBC ELECTR[employer] ACCESSORIES ASSEMBLER Not Available [facility] ([facility]) [address] [facility], [place], [address], 02/20/2023 09:07:37 02/20/20 23 02/20/2023 CBC WITH DIFFE RENTI AL/PL ATELE T hematology comments: ELECTRICAL ACCESSORIES ASSEMBLER Not Available [facility] ([facility]) [address] [facility], [place], [address], 02/20/2023 09:07:37 02/20/20 23 02/20/2023 COMP. METAB OLIC PANEL (14) glucose 281 mg/dL 70-99 above high normal Not Available [facility] ([facility]) [address] [facility], [place], [address], 02/20/2023 09:07:38 02/20/20 23 02/20/2023 COMP. METAB OLIC PANEL (14) BUN 9 mg/dL 6-24 Not Available [facility] ([facility]) [address] [facility], [place], [address], 02/20/2023 09:07:38 02/20/20 23 02/20/2023 COMP. METAB OLIC PANEL (14) creatinine 0.64 mg/dL 0.57-1 .00 Not Available [facility] ([facility]) [address] [facility], [place], [address], 02/20/2023 09:07:38 02/20/20 23 02/20/2023 COMP. METAB OLIC PANEL (14) eGFR 102 mL/mi n/1.7 3 >59 Not Available [facility] ([facility]) [address] [facility], [place], [address], 02/20/2023 09:07:38 02/20/20 23 02/20/2023 COMP. METAB OLIC PANEL (14) BUN/creatini ne ratio 14 9-23 Not Available [facility] ([facility]) [address] [facility], [place], [address], 02/20/2023 09:07:38 02/20/20 23 02/20/2023 COMP. METAB OLIC PANEL (14) sodium 141 mmol/ L 134-14 4 Not Available [facility] ([facility]) [address] [place], [address], 02/20/2023 09:07:38 02/20/20 23 02/20/2023 COMP. METAB OLIC PANEL (14) potassium 4.6 mmol/ L 3.5-5. 2 Not Available [facility] ([facility]) [address] [facility], [place], [address], 02/20/2023 09:07:38 02/20/20 23 02/20/2023 COMP. METAB OLIC PANEL (14) chloride 100 mmol/ L 96-106 Not Available [facility] ([facility]) [address] [place], [address], 02/20/2023 09:07:38 02/20/20 23 02/20/2023 COMP. METAB OLIC PANEL (14) carbon dioxide, total 29 mmol/ L 20-29 Not Available [facility] ([facility]) [address] [place], [address], 02/20/2023 09:07:38 02/20/20 23 02/20/2023 COMP. METAB OLIC PANEL (14) calcium 9.3 mg/dL 8.7-10 .2 Not Available [facility] ([facility]) [address] [place], [address], 02/20/2023 09:07:38 02/20/20 23 02/20/2023 COMP. METAB OLIC PANEL (14) protein, total 6.6 g/dL 6.0-8. 5 Not Available [facility] ([facility]) [address] [place], [address], 02/20/2023 09:07:38 02/20/20 23 02/20/2023 COMP. METAB OLIC PANEL (14) albumin 4.3 g/dL 3.8-4. 9 Not Available [facility] ([facility]) [address] [place], [address], 02/20/2023 09:07:38 02/20/20 23 02/20/2023 COMP. METAB OLIC PANEL (14) globulin, total 2.3 g/dL 1.5-4. 5 Not Available [facility] ([facility]) [address] [place], [address], 02/20/2023 09:07:38 02/20/20 23 02/20/2023 COMP. METAB OLIC PANEL (14) A/G ratio 1.9 1.2-2. 2 Not Available [facility] ([facility]) [address] [place], [address], 02/20/2023 09:07:38 02/20/20 23 02/20/2023 COMP. METAB OLIC PANEL (14) bilirubin, total 1.6 mg/dL 0.0-1. 2 above high normal Not Available [facility] ([facility]) [address] [facility] [place], [address], 02/20/2023 09:07:38 02/20/20 23 02/20/2023 COMP. METAB OLIC PANEL (14) alkaline phosphatase 98 IU/L 44-121 Not Available [facility] ([facility]) [address] [facility] [place], [address], 02/20/2023 09:07:38 02/20/20 23 02/20/2023 COMP. METAB OLIC PANEL (14) AST (SGOT) 19 IU/L 0-40 Not Available [facility] ([facility]) [address] [facility] [place], [address], 02/20/2023 09:07:38 02/20/20 23 02/20/2023 COMP. METAB OLIC PANEL (14) ALT (SGPT) 23 IU/L 0-32 Not Available [facility] ([facility]) [address] [place], [address], 02/20/2023 09:07:38 02/20/20 23 02/20/2023 LIPID PANEL cholesterol, total 197 mg/dL 100-19 9 Not Available [facility] ([facility]) [address] [facility] [place], [address], 02/20/2023 09:07:38 02/20/20 23 02/20/2023 LIPID PANEL triglyceride s 275 mg/dL 0-149 above high normal Not Available [facility] ([facility]) [address] [facility] [place], [address], 02/20/2023 09:07:38 02/20/20 23 02/20/2023 LIPID PANEL HDL cholesterol 44 mg/dL >39 Not Available [facility] ([facility]) [address] [facility] [place], [address], 02/20/2023 09:07:38 02/20/20 23 02/20/2023 LIPID PANEL VLDL cholesterol megan 47 mg/dL 5-40 above high normal Not Available [facility] ([facility]) [address] [place], [address], 02/20/2023 09:07:38 02/20/20 23 02/20/2023 LIPID PANEL LDL chol calc ([facility]) 106 mg/dL 0-99 above high normal Not Available [facility] ([facility]) [address] [facility], [place], [address], 02/20/2023 09:07:38 02/20/20 23 02/20/2023 LIPID PANEL comment: ELECTR[employer] ACCESSORIES ASSEMBLER Not Available [facility] ([facility]) [address] [facility], [place], [address], 02/20/2023 09:07:38 02/20/20 23 02/20/2023 ALBUM IN/CR EATIN INE RATIO ,URIN E creatinine, urine 51.8 mg/dL not estab. Not Available [facility] ([facility]) [address] [facility], [place], [address], 02/20/2023 09:07:39 02/20/20 23 02/20/2023 ALBUM IN/CR EATIN INE RATIO ,URIN E albumin, urine <3.0 ug/mL not estab. Not Available [facility] ([facility]) [address] [facility], [place], [address], 02/20/2023 09:07:39 02/20/20 23 02/20/2023 ALBUM IN/CR EATIN INE RATIO ,URIN E alb/creat ratio <6 mg/g_ creat 0-29 Nikki l: 0 - 29 Moder ately incre ased: 30 - 300 Sever elizabeth incre ased: >300 Not Available [facility] ([facility]) [address] [facility], [place], [address], 02/20/2023 09:07:39 02/20/20 23 02/20/2023 HEMOG LOBIN A1C hemoglobin A1C 9.0 % 4.8-5. 6 above high normal Predi abete s: 5.7 - 6.4 Diabe brinda: >6.4 Glyce shabana contr ol for adult s with diabe brinda: <7.0 Not Available [facility] ([facility]) [address] [facility], [place], [address], 02/20/2023 09:07:39 02/20/2002/20/2023 VITAM IN D, 25-HY DROXY vitamin D, 25-hydroxy 27.1 NG/mL 30.0-1 00.0 below low normal Vitam in D defic iency has been defin ed by the Insti tute of Medic ine and an Endoc rine Socie ty pract ice guide line as a level of serum 25-OH vitam in D less than 20 ng/mL (1,2) . The Endoc rine Socie ty went on to furth er defin e vitam in D insuf ficie ncy as a level betwe en 21 and 29 ng/mL (2). 1. IOM (Inst itute of Medic ine). 2010. Dieta ry refer ence intak es for calci um and D. Eriberto middleton [place]: [facility] . 2. Chong ralph [place], Sunil henriquez [place], Stephen off-F errar i N[place]ON, et al. Evalu ation , treat ment, and preve ntion of vitam in D defic iency : an Endoc rine Socie ty clini megan pract ice guide line. [facility]. 2010; 96(7) :1911 -30. Not Available [facility] ([facility]) [address] [facility], [place], [address], 02/20/2023 09:07:39 03/26/2003/27/2023 TSH+F REE T4 TSH 0.739 uIU/m L 0.450- 4.500 Not Available [facility] ([facility]) [address] [facility], [place], [address], 03/27/2023 08:10:56 03/26/2003/27/2023 TSH+F REE T4 T4,free(dire ct) 1.71 NG/dL 0.82-1 .77 Not Available [facility] ([facility]) [address], [place], [address], 03/27/2023 08:10:56 03/09/20 23 03/09/2023 XR, knee, 3 view No observ ation record ed. [facility] [address], [place], [address], 03/12/2023 14:00:24 03/03/20 24 03/06/2024 elect rocar diogr am No observ ation record ed. efryman [address], [address], 03/06/2024 10:20:33 03/03/20 24 03/03/2024 elect rocar diogr am No observ ation record ed. [email or web address] [address], [address], 03/13/2024 14:27:28 Result Notes None recorded. Problems Name Problem SNOMED Code Status Onset Date Resolution Date Notes Provider Name and Address Organization Details Recorded Time Type 2 diabetes mellitus 08653881 Active 2022 Rach Morris APRN [address], [place], [address] , [place] - [facility] 3 14:46:48 Hypercholeste rolemia 98237981 Active 2022 Rach Morris TIRE TECHNICIAN [address], [place], [address] , [place] - [facility] 3 14:46:34 Acid reflux 589888058 Active 2022 Rach Morris APRN [address], [place], [address] , [place] - [facility] 3 14:46:26 Anxiety 85421258 Active 2022 Rach Morris APRN [address], [place], [address] , [place] - [facility] 3 14:46:32 Hypertensive disorder 70868383 Active 2022 Rach Morris, TIRE TECHNICIAN [address], [place], [address] , [place] - [facility] 3 14:46:36 Vitamin D deficiency 94593199 Active 2022 Rach Morris, TIRE TECHNICIAN [address], [place], [address] , [place] - [facility] 3 14:46:46 Hypothyroidis m 57134214 Active 2022 Rach Morris, TIRE TECHNICIAN [address], [place], [address] , [facility] - [facility] 3 14:46:37 Postmenopausa l bleeding 37140481 Active 2022 Arlin Bustillos, TIRE TECHNICIAN [address], [place], [address] , [facility] - [facility] 3 11:59:19 Problem Notes None recorded. Procedures Surgical History Date Name Laterality Status Provider Name and Address Organization Details Recorded Time 08/29/19 84 Caesarean Section completed Brielel Stears [place] - [facility] 02/19/2023 14:37:04 Cholecystectomy, laparoscopic completed Brielle Stears [place] - [facility] 02/19/2023 14:37:11 thyroidectomy completed Brielle Stears [place] - [facility] 02/19/2023 14:38:00 Hernia Repair completed Brielle Stears [place] - [facility] 02/19/2023 14:37:36 Imaging Results None recorded. Procedure Notes None recorded. Medical Equipment None Reported. Allergies Allergen ID Allergen Name Allergen Category Reaction Reaction Severity Criticality Documentation Date Start Date Code Code System Note Provider Name and Address Organization Details Recorded Time 074928 metformin medicatio n vomiting Not available low 2023 6809 RxNorm Rach Morris, TIRE TECHNICIAN [address], [place], [address], [facility] - [facility] 3 15:35:07 Medications Name Sig Start Date Stop Date Status Note LastModified by Organization Details LastModified Time celecoxib 200 mg capsule Take 1 capsule every day by oral route for 30 days. active Not Available Not Available No t Available amoxicillin 500 mg capsule TAKE 1 CAPSULE BY MOUTH EVERY 8 HOURS FOR 10 DAYS 03/03 completed Not Available Not Available Not Available atorvastati n 40 mg tablet 1 tablet per day active Not Available Not Available No t Available buspirone 5 mg tablet Take 1 tablet every day by oral route as needed for 30 days. 03/03 completed Not Available Not Available Not Available terconazole 0.4 % vaginal cream 03/03 completed Not Available Not Available Not Available bupropion HCl SR 150 mg tablet,12 hr sustained-r elease 02/19 completed Not Available Not Available Not Available atorvastati n 20 mg tablet 02/19 completed Not Available Not Available Not Available azithromyci n 250 mg tablet TAKE 2 TABLETS BY MOUTH ON DAY 1, AND THEN TAKE 1 TABLET BY MOUTH ONCE A DAY ON DAY 2 THROUGH DAY 5 03/03 completed Not Available Not Available Not Available fluconazole 150 mg tablet TAKE 1 TABLET BY MOUTH EVERY 3 DAYS FOR 2 DOSES 03/03 completed Not Available Not Available Not Available glipizide ER 10 mg tablet, extended release 24 hr 1 tablet per day active Not Available Not Available No t Available phenazopyri dine 200 mg tablet TAKE 1 TABLET BY MOUTH EVERY 8 HOURS FOR 2 DAYS 03/03 completed Not Available Not Available Not Available lisinopril 20 mg tablet Take 1 tablet every day by oral route for 30 days. active Not Available Not Available No t Available ondansetron HCl 4 mg tablet Take 1 tablet every 8 hours by oral route as needed. 03/03 completed Not Available Not Available Not Available prednisone 20 mg tablet 03/03 completed Not Available Not Available Not Available metoprolol succinate ER 100 mg tablet,exte nded release 24 hr 1 tablet per day active Not Available Not Available No t Available terconazole 0.8 % vaginal cream 03/03 completed Not Available Not Available Not Available ciprofloxac in 500 mg tablet TAKE 1 TABLET BY MOUTH TWICE DAILY FOR 7 DAYS 03/03 completed Not Available Not Available Not Available omeprazole 40 mg capsule,del ayed release 1 tablet per day active Not Available Not Available No t Available triamcinolo ne acetonide 0.1 % topical cream APPLY A THIN LAYERTOPI SHAVONNE TO THE AFFECTED AREA(S) BY 2 TIMES A DAY FOR 5 DAYS 03/03 completed Not Available Not Available Not Available oxycodone-a cetaminophe n 5 mg-325 mg tablet 03/03 completed Not Available Not Available Not Available amoxicillin 875 mg tablet TAKE 1 TABLET BY MOUTH TWICE DAILY FOR 10 DAYS 03/03 completed Not Available Not Available Not Available lorazepam 0.5 mg tablet 03/03 completed Not Available Not Available Not Available benzonatate 100 mg capsule 03/03 completed Not Available Not Available Not Available cephalexin 500 mg capsule 03/03 completed Not Available Not Available Not Available cyanocobala min (vit B-12) 1,000 mcg/mL injection solution Inject by injection route for 7 days. active Not Available Not Available No t Available esomeprazol e magnesium 40 mg capsule,del ayed release TAKE ONE CAPSULE BY MOUTH ONCE A DAY 03/03 completed Not Available Not Available Not Available levothyroxi ne 125 mcg tablet 1 tablet per day active Not Available Not Available No t Available triamcinolo ne acetonide 0.1 % topical ointment 03/03 completed Not Available Not Available Not Available lisinopril 10 mg tablet 03/03 completed Not Available Not Available Not Available Banophen 25 mg capsule 03/03 completed Not Available Not Available Not Available lisinopril 5 mg tablet 1 tablet per day 03/03 completed Not Available Not Available Not Available furosemide 20 mg tablet 1 tablet per day active Not Available Not Available No t Available ergocalcife rol (vitamin D2) 1,250 mcg (50,000 unit) capsule Take 1 capsule every week by oral route. active Not Available Not Available No t Available BD Tuberculin Syringe 1 mL 25 gauge x 5/8 active Not Available Not Available Not Available methylpredn isolone 4 mg tablets in a dose pack TAKE BY MOUTH DIRECTED ON INSIDE OF PACKAGE 03/03 completed Not Available Not Available Not Available ketoconazol e 2 % topical cream 02/19 completed Not Available Not Available Not Available ondansetron 4 mg disintegrat ing tablet DISSOLVE 1 TABLET IN MOUTH EVERY 8 HOURS NEEDED FOR NAUSEA AND VOMITING 03/03 completed Not Available Not Available Not Available fluticasone propionate 50 mcg/actuati on nasal spray,suspe nsion [facility] 1 spray every day by nasal route for 30 days. active Not Available Not Available No t Available sertraline 50 mg tablet 1 tablet per day 03/03 completed Not Available Not Available Not Available amoxicillin 875 mg-janak larson clavulanate 125 mg tablet TAKE 1 TABLET BY MOUTH TWICE DAILY FOR 7 DAYS 03/03 completed Not Available Not Available Not Available cholecalcif raul (vitamin D3) 25 mcg (1,000 unit) tablet 1 tablet per day active Not Available Not Available No t Available Januvia 100 mg tablet 1 tablet per day 03/26 completed Not Available Not Available Not Available diclofenac 1 % topical gel APPLY 2 GRAMS TO THE AFFECTED AREA(S) BY TOPICAL ROUTE 4 TIMES PER DAY 03/03 completed Not Available Not Available Not Available OneTouch Verio test strips Take 2 strips every day by miscell. route. active Not Available Not Available No t Available Jardiance 10 mg tablet Take 1 tablet every day by oral route. 03/03 completed Not Available Not Available Not Available Trulicity 1.5 mg/0.5 mL subcutaneou s pen injector INJECT 1.5 MG (0.5 ML) SUBCUTANE OUSLY ONCE A WEEK 03/03 completed Not Available Not Available Not Available Trulicity 0.75 mg/0.5 mL subcutaneou s pen injector Inject 0.75 mg every week by subcutane ous route. 04/05 completed Not Available Not Available Not Available Vraylar 1.5 mg capsule 03/03 completed Not Available Not Available Not Available Ozempic 0.25 mg or 0.5 mg (2 mg/3 mL) subcutaneou s pen injector active Not Available Not Available Not Available Vitals Date Recorded Respiratory rate Body weight Body temperature Body mass index (BMI) Body height Heart rate Oxygen saturation Oxygen saturation in Arterial blood by Pulse oximetry Systolic And Diastolic Provider Name and Address Organization Details Last Updated DateTime 3 18 /min 26087.1 4 g 97.4 [degF] 41.2 kg/m2 154.94 cm 76 /min 97 % 97 % 142/78 mm[Hg] Brielle Stears [facility] 3 14:31:34 Date Recorded Body height Body mass index (BMI) Body weight Body temperature Heart rate Oxygen saturation Oxygen saturation in Arterial blood by Pulse oximetry Respiratory rate Pain severity - 0-10 verbal numeric rating [Score] - Reported Systolic And Diastolic Provider Name and Address Organization Details Last Updated DateTime 3 154.94 cm 40.3 kg/m2 35590.2 7 g 98.1 [degF] 82 /min 97 % 97 % 18 /min 3 128/80 mm[Hg] Arlin Yi [facility] 3 14:51:29 Date Recorded Body height Heart rate Body mass index (BMI) Body weight Body temperature Oxygen saturation Oxygen saturation in Arterial blood by Pulse oximetry Respiratory rate Pain severity - 0-10 verbal numeric rating [Score] - Reported Systolic And Diastolic Provider Name and Address Organization Details Last Updated DateTime 4 154.94 cm 70 /min 39.1 kg/m2 49919.6 2 g 98 [degF] 98 % 98 % 20 /min 0 160/94 mm[Hg] Arlin Kassidy [facility] 09:28:14 Date Recorded Body height Body mass index (BMI) Body weight Body temperature Heart rate Oxygen saturation Oxygen saturation in Arterial blood by Pulse oximetry Respiratory rate Pain severity - 0-10 verbal numeric rating [Score] - Reported Systolic And Diastolic Provider Name and Address Organization Details Last Updated DateTime 3 154.94 cm 39.3 kg/m2 52159.9 1 g 97.7 [degF] 60 /min 96 % 96 % 18 /min 0 110/78 mm[Hg] Arlin Kassidy [facility] 3 15:08:25 Social History Question Answer Notes LastModified by Organizat ion Details LastModified Time Tobacco Smoking Status Never Smoker Brielle Otis elkins [facility] 02/19/2023 14:18:29 Do You Have An Advance Directive? No Information not available 02/19/2023 Are You Blind Or Do You Have Difficulty Seeing? No Information not available 02/19/2023 Is Blood Transfusion Acceptable In An Emergency? Yes Information not available 02/19/2023 What Is Your Level Of Caffeine Consumption? Occasional Information not available 02/19/2023 How Much Tobacco Do You Chew? None Information not available 02/19/2023 Are You Deaf Or Do You Have Serious Difficulty Hearing? No Information not available 02/19/2023 What Type Of Diet Are You Following? REGULAR Information not available 02/19/2023 Which Illicit Or Recreational Drugs Have You Used? None Information not available 02/19/2023 What Is The Highest Grade Or Level Of School You Have Completed Or The Highest Degree You Have Received? [id number] Information not available 02/19/2023 Have There Been Any Changes To Your Family Or Social Situation? No Information no t available 02/19/2023 What Is The Fluoride Status Of Your Home? Unknown Information not available 02/19/2023 How Many Years Have You Used Illicit Or Recreational Drugs? 0 Information not available 02/19/2023 Do You Have A Medical Power Of Gamma Ray Operator? No Information not available 02/19/2023 What Was The Date Of Your Most Recent Tobacco Screening? 03/03/2024 [email or web address] Information not available 03/03/2024 How Many Children Do You Have? 10 Information not available 02/19/2023 What Is Your Relationship Status? Information not available 02/19/2023 Do You Use Your Seat Belt Or Car Seat Routinely? Yes Information not available 02/19/2023 Do You Have Smoke And Carbon Monoxide Detectors In Your Home? Yes Information not available 02/19/2023 Are You Passively Exposed To Smoke? No Information no t available 02/19/2023 Has Tobacco Cessation Counseling Been Provided? No Information not available 02/19/2023 Do You Have Difficulty Walking Or Climbing Stairs? No Information not available 02/19/2023 Sex: Female Functional Status Question Answer Note LastModified by Organizat ion Details LastModified Time Do you use any illicit or recreational drugs? No Information not available 02/19/2023 Do you or have you ever used any other forms of tobacco or nicotine? No Information not available 02/19/2023 What is your level of alcohol consumption? None Information not available 02/19/2023 Do you or have you ever used smokeless tobacco? Never used smokeless tobacco Information not available 02/19/2023 Are you currently employed? No Information not available 02/19/2023 Do you have transportation difficulties? No Information not available 02/19/2023 Are you able to walk? YESWOREST Information not available 02/19/2023 Do you have difficulty doing errands alone? No Information not available 02/19/2023 Are you able to care for yourself independently? Yes Information not available 02/19/2023 Do you have difficulty dressing, bathing, grooming, or toileting? No Information not available 02/19/2023 Do you or have you ever used e-cigarettes or vape? Never used electronic cigarettes Information not available 02/19/2023 What is your exercise level? Moderate Information not available 02/19/2023 Mental Status Question Answer Note LastModified by Organizat ion Details LastModified Time Do you feel stressed (tense, restless, nervous, or anxious, or unable to sleep at night)? [id number] Information not available 02/19/2023 Do you have difficulty concentrating, remembering or making decisions? No Information no t available 02/19/2023 Family History Relationship Description Onset Age of this Age Resolved Age Notes LastModified by Organization Details LastModified Time Mother Diabetes mellitus [email or web address] Not available 2022 14:18:28 Medical History Condition Response Diabetes Y Acid Reflux (GERD) Y Arthritis Y Hypertension Y Hypercholesterolemia Y Gynecological History Statement/Question Response Abnormal Pap N Date of Last Mammogram Date of LMP 02/28/2020 Post Menopausal Bleeding N STIs/STDs N HPV Vaccine N Duration of Flow (days) 0 Current Control Method None Age at Menarche 11 Age at First Child 19 If Post Menopausal, Age at Menopause 54 Date of Last Colonoscopy Frequency of Cycle (Q days) 0 Most Recent Bone Density Menses Monthly N Date of Last Pap Smear Hormone Replacement Therapy N Obstetrics History GPAL:G 0 P 0 0 0 0 Past Encounters Encounter ID Performer Location Encounter Start Date Encounter Closed Date Diagnosis/Indication Diagnosis SNOMED-CT Code Diagnosis ICD10 Code Diagnosis Note [id number] Rach Morris [address] [address] 02/19/2023 13:53:33 02/19/2023 15:25:36 Acid reflux 822478479 K21.9 hold omeprazole for 30 days while on nexium then restart after dose complete Hypothyroidism 44171372 E03.9 Hypercholesterolemia 136 91207 E78.00 Anxiety 77396794 F41.9 Hypertensive disorder 38 979137 I10 Type 2 richard betes mellitus 95261036 E11.9 Vitamin D deficiency 347 08324 E55.9 Acute righ t otitis media 808907723 H66.91 Atopic dermatitis 995809 01 L20.9 [id number] Rach Morris [address] [address] 2023 14:35:34 2023 15:30:53 Hypercholesterolemia 13924621 E78.00 meds as ordered Hypertensive disorder 38 320076 I10 meds as ordered Type 2 richard betes mellitus 46890749 E11.[address] jardiance 10 mg- will increase in 1 month if she can tolerate and glucose is gooddexcom g 7 sample placed on pt lot [id number] , exp: 05/14/2024 monitor glucose and keep logreturn in 1 month for 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 dexcom order is pending with insurance. Body mass index 30+ - obesity 299087068 Z68.39 Obesity 896317760 E66.9 [id number] Rach Morris APRN [facility] [address] [place] [address] 03/03/2024 09:05:37 03/03/2024 09:52:00 Hypertensive disorder 54851477 I10 spoke [address] mitchell he will see pt susan, sent pt to his office for eval Neck pain 74302178 M54.2 Health Concerns Section Related Observation LastModified by Organization Detai ls LastModified Time None Recorded Concern Status LastModified by Organization Details LastModified Time None Recorded Advance Directives Directive N: Payers Insurance Date Sequence Insurance Name Policy Number Policy Kirk Covered Member ID Kirk Member ID Guarantor Name 05/26/2024 [place] - [facility] WRAP BILLING (MEDICAID) Marlene Feeback [id number] Marlene Feeback 05/24/2024 1 [employer] [place] (MEDICAID HMO) Marlene Feeback [id number] Marlene Feeback OBGyn Episode No OBEpisode recorded.
--- NOTE | 2025-06-12 17:35 | XR_ITS ---
PROCEDURE INFORMATION: Exam: XR Chest Exam date and time: 06/12/2025 6:00 PM Age: 60 years old Clinical indication: Other: Thoracic back pain. Pain in left shoulder blade x3 days. Congestion. TECHNIQUE: Imaging protocol: Radiologic exam of the chest. Views: 2 views. COMPARISON: CT ABDOMEN PELVIS WO CON 04/08/2025 3:40 PM FINDINGS: Lungs: Unremarkable. No consolidation. Pleural spaces: Unremarkable. No pleural effusion. No pneumothorax. Heart/Mediastinum: Unremarkable. No cardiomegaly. Bones/joints: Unremarkable. IMPRESSION: No acute findings.
--- NOTE | 2025-06-12 17:38 | ECG_ITS ---
APPROVED REPORT Exam: Resting ECG HR:67 bpm ECG Measurements Heart Rate 67 AXES MD 157 P 37 QRSd 94 QRS 33 QT 392 T 57 QTc 407 Conclusion SINUS RHYTHM Normal intervals No STEMI Electronically signed by : Julio Pérez, 06/13/2025 02:23:43
[2025-06-12] MEDS: IBUPROFEN 400 MG TABLET 800 MG PO (17:50)
[2025-06-12] MEDS: ACETAMINOPHEN 500MG TAB 1000 MG PO (17:50)
[2025-06-12] MEDS: METHOCARBAMOL 500MG TABLET 500 MG PO (17:50)
[2025-06-12 17:51] LABS: Microscopic, Urine URINE MICROSCOPIC (MICROSCOPIC)
[2025-06-12] MEDS: LIDOCAINE 5% TRANSDERMAL PATCH 1 EACH TD (17:51)
[2025-06-12 18:08] LABS: Hematocrit 34.7 % (37.0-47.0); Hemoglobin 11.9 g/dL (12.2-16.2); Immature Granulocytes % 0.4 %; Mean Corpuscular HGB Conc 34.3 g/dL (31.8-35.4); Mean Corpuscular Hemoglobin 30.7 pg (27.0-31.2); Mean Corpuscular Volume 89.7 fl (81-99); Nucleated Red Blood Cells % 0 %; Platelet Count 243 K/mm3 (142-424); Red Blood Count 3.87 M/mm3 (4.20-5.40); Red Cell Distribution Width-SD 43.6 fL; White Blood Count 5.6 K/mm3 (4.8-10.8)
[2025-06-12 18:12] LABS: Color,Urine YELLOW (Yellow); Glucose,Urine (UA) Negative (Negative); Ketones,Urine TRACE (Negative); Leukocyte Esterase,Urine 2+ (Negative); PH,Urine 5.5 (5.0-8.5); Protein,Urine TRACE (Negative); Specific Gravity, Urine 1.025 (1.005-1.030); Urobilinogen,Urine 0.2 EU/dl (0.2)
[2025-06-12 18:18] LABS: Albumin Level 3.8 g/dl (3.5-5.0); Chloride 100 mmol/L (98-107); Potassium 4.3 mmoL/L (3.5-5.1); Sodium 135 mmol/L (136-145)
[2025-06-12 18:20] LABS: Alanine Aminotransferase 19 U/L (12-78); Aspartate Amino Transferase 28 U/L (14-36); Blood Urea Nitrogen 30 mg/dl (7-17); Creatinine Clearance Estimated 42 mL/min (50-200); Creatinine,Serum 1.80 mg/dl (0.52-1.04); Estimated Glomerular Filt Rate 29 ml/min (>60); GFR (African American) 35 ML/MIN (>60); INR 1.01 (0.9-1.1); Prothrombin Time 11.2 seconds (10.1-12.5)
[2025-06-12 18:21] LABS: Bilirubin,Urine 1+ (Negative)
[2025-06-12 18:21] LABS: Albumin/Globulin Ratio 1.1 (1.1-1.8); Alkaline Phosphatase 94 U/L (38-126); Anion Gap 11.3 mEq/L (5-15); Bilirubin,Total 1.3 mg/dl (0.2-1.3); Calcium 10.0 mg/dl (8.4-10.2); Carbon Dioxide 28 mmol/L (22.0-30.0); Globulin 3.6 g/dL (1.3-3.2); Glucose 120 mg/dl (74-100); Magnesium 1.8 mg/dl (1.6-2.3); Total Protein,Serum 7.4 g/dl (6.3-8.2)
[2025-06-12 18:30] LABS: NT Pro Brain Natriuretic Pep. 115 pg/mL (0-125)
[2025-06-12 18:43] LABS: Troponin I < 0.01 ng/ml (0.00-0.034)
[2025-06-12 19:00] LABS: D-Dimer 0.48 ug/mL (0.0-0.5)
[2025-06-12 19:13] VITALS: BP 133/82; PULSE 62; RESP 16; O2SAT 100
[2025-06-12 19:21] LABS: Procalcitonin 0.092 ng/mL (0.0-2.0)
[2025-06-12] MEDS: METHOCARBAMOL 500MG TABLET 1000 MG PO (20:00)
[2025-06-12 20:09] LABS: Bacteria,Urine 3+ /lpf
[2025-06-12] MEDS: SULFA/TRIMETHOPRIM 1 TABLET 1 EACH PO (20:33)
[2025-06-12 20:35] VITALS: BP 128/73; PULSE 65; RESP 16; TEMP 37.1; O2SAT 98
[2025-06-12] MEDS: ONDANSETRON 4MG ODT 4 MG SL (20:42)
--- NOTE | 2025-06-14 08:15 | PC.NURSE ---
Urine culture results reviewed by Dr. Burnett. No new orders received.
== END 2025-06-12 20:37 | disposition home or self-care (01) ==
PROVIDERS: Physician Assistant; Emergency Provider Student in an Organized Health Care Education/Training Program; PCP Physician Assistant
DX: M54.6 Pain in thoracic spine (principal); N39.0 Urinary tract infection, site not specified; E11.9 Type 2 diabetes mellitus without complications; F32.A Depression, unspecified; I10 Essential (primary) hypertension; E78.5 Hyperlipidemia, unspecified
CPT/HCPCS: 71046; 80053; 81001; 83735; 83880; 84145; 84484; 85025; 85378; 85610; 87086; 87088; 87186; 93005; 99285; Q0162